=== PATIENT | female | born 1955 | race Caucasian/White ===

== ENCOUNTER 2017-09-06 13:05 | Emergency (ER) | payer OTHER ==
[~2017-09-06] VITALS: Ht 165.1 cm; Wt 85.4 kg
[~2017-09-06 13:05] MED LIST: CLOP1TAB15 PO; CLTP PO; FRC PO; NAPR-1169 PO; PROM25TA PO; SYN88 PO
[2017-09-06 13:07] VITALS: TEMP 36.8; Ht 165.1 cm; Wt 85.4 kg
[2017-09-06 13:15] VITALS: O2SAT 93
[2017-09-06] MEDS ORDERED: KETOROLAC TROMETHAMINE 30 MG/ML VIAL IV STA (13:19)
--- NOTE | 2017-09-06 13:47 | DIAGNOSTIC IMAGING REPORT ---
SINGLE VIEW CHEST CLINICAL HISTORY: Fever. Sepsis. FINDINGS: An AP, portable, upright chest radiograph is compared to study dated 07/12/2015 and correlated with chest CT dated 12/03/2008. The examination is degraded by portable technique and patient rotation. The cardiomediastinal silhouette is unremarkable. There is mild chronic elevation of the right hemidiaphragm. The lungs and pleural spaces are clear. No pneumothorax is seen. The skeletal structures are osteopenic. The bony thorax is grossly intact. IMPRESSION: No active disease in the chest. Electronically signed by: Isai Alcala M.D. 09/06/2017 1:46 PM Dictated Date/Time: 09/06/2017 1:45 PM
[2017-09-06 14:02] LABS: BASO % 0.4 %; BASO ABS # 0.03 K/uL (0-0.2); EOS % 3.3 %; EOS ABS # 0.22 K/uL (0-0.5); HEMOGLOBIN 14.5 g/dL (12.0-16.0); IG# 0.04 K/uL (0.00-0.02); LYMPH % 31.7 %; LYMPH ABS # 2.14 K/uL (1.2-3.4); MEAN CELL VOLUME 93.5 fL (80-100); MEAN CORPUSCULAR HEMOGLOBIN 32.3 pg (25-34); MEAN CORPUSCULAR HGB CONC 34.5 g/dl (32-36); MEAN PLATELET VOLUME 9.7 fL (7.4-10.4); MONO % 6.7 %; MONO ABS # 0.45 K/uL (0.11-0.59); NEUT % 57.3 %; NEUT ABS # 3.88 K/uL (1.4-6.5); PLATELET COUNT 274 K/uL (130-400); RED CELL DISTRIBUTION WIDTH CV 13.8 % (11.5-14.5); RED CELL DISTRIBUTION WIDTH SD 47.2 fL (36.4-46.3); WHITE BLOOD COUNT 6.76 K/uL (4.8-10.8)
[2017-09-06 14:13] LABS: PTT PATIENT 25.6 SECONDS (21.0-31.0)
[2017-09-06 14:18] LABS: ALT/SGPT 32 U/L (12-78); AST/SGOT 15 U/L (15-37); BLOOD UREA NITROGEN 14 mg/dl (7-18); CALCIUM 9.8 mg/dl (8.5-10.1); CARBON DIOXIDE 27 mmol/L (21-32); CREATININE 0.84 mg/dl (0.60-1.20); GLUCOSE 109 mg/dl (70-99); LIPASE 107 U/L (73-393); SODIUM 138 mmol/L (136-145)
[2017-09-06 14:24] LABS: ALKALINE PHOSPHATASE 86 U/L (45-117); CKMB 0.5 ng/ml (0.5-3.6); TOTAL PROTEIN 8.1 gm/dl (6.4-8.2)
[2017-09-06] MEDS ORDERED: GLC/500 PO (14:27)
[2017-09-06] MEDS ORDERED: CHOL1CAP57 PO (14:27)
[2017-09-06] MEDS ORDERED: MONT1TAB3 PO (14:27)
[2017-09-06] MEDS ORDERED: ESCI1TAB10 PO (14:27)
[2017-09-06] MEDS ORDERED: LACT12LO28 TOP (14:27)
[2017-09-06] MEDS ORDERED: CLOP1TAB15 PO (14:27)
[2017-09-06] MEDS ORDERED: DICL-201 PO (14:27)
[2017-09-06] MEDS ORDERED: CALC-354 PO (14:27)
[2017-09-06] MEDS ORDERED: LISI-461 PO (14:27)
[2017-09-06] MEDS ORDERED: CYCL10TA6 PO (14:27)
[2017-09-06] MEDS ORDERED: CETI10TA84 PO (14:27)
[2017-09-06] MEDS ORDERED: LEVE500T13 PO (14:27)
--- NOTE | 2017-09-06 14:32 | EMERGENCY ROOM VISIT NOTE ---
History Report prepared by Zia: Jeff Ernst Under the Supervision of: Dr. Gucci Tran D.O. First contact with patient: 13:10 Chief Complaint: CARDIAC ASSESSMENT Stated Complaint: ABN EKG - STABBING PAIN LEFT SIDE History of Present Illness The patient is a 61 year old female who presents to the Emergency Room with complaints of intermittent pains under her left breast. The patient states that she started experiencing the intermittent "sharp and stabbing" pains last night at 2100, 16 hours ago. She notes that the pain lasts a couple of seconds, and onsets about every 10 minutes. She describes the intensity of the pain as "horrible." When the pain resolves she feels completely normal. The patient notes that the pain has taken her breath away, but it is not precipitated by deep inhalation. The patient visited with per primary care office this morning, and they referred her to the ER for EKG abnormalities. The patient is on Plavix for a possible previous TIA. Source of History: patient Onset: 16 hours ago Position: chest (left) Symptom Intensity: horrible Quality: sharp, stabbing Timing: intermittent Associated Symptoms: + SOB (pain taking her breath away) Review of Systems See HPI for pertinent positives & negatives. A total of 10 systems reviewed and were otherwise negative. Past Medical & Surgical Medical Problems: (1) HTN (hypertension) HTN (hypertension) Patient is pre-diabetic. Hx of hypothyroid. on Keppra for migraines Family History Omitted due to age Social History Smoking Status: Never Smoker Marital Status: Housing Status: lives with significant other Current/Historical Medications Scheduled Calcium Carbonate-Cholecalcife (Caltrate 600+D), 1 TAB PO DAILY Cetirizine (Zyrtec), 10 MG PO DAILY Cholecalciferol (Vitamin D3), 1,000 UNITS PO DAILY Clopidogrel (Plavix), 75 MG PO DAILY Diclofenac (Voltaren), 75 MG PO DAILY Escitalopram Oxalate (Lexapro), 20 MG PO DAILY Lactic Acid (Ammonium Lactate) (Ammonium Lactate), 1 APPLN TOP DAILY Levetiracetam (Keppra), 250 MG PO BID Lisinopril (Zestril), 10 MG PO DAILY Metformin Hcl (Glucophage), 1,000 MG PO DAILY Montelukast Sodium (Singulair), 10 MG PO HS Scheduled PRN Cyclobenzaprine Hcl (Flexeril), 10 MG PO TID PRN for Muscle Spasms Allergies Coded Allergies: Shellfish (Unverified Allergy, Unknown, ., 09/06/17) Sulfa Antibiotics (Unverified Allergy, Unknown, ., 09/06/17) Physical Exam Vital Signs Date Time Temp Pulse Resp B/P (MAP) Pulse Ox O2 Delivery O2 Flow Rate FiO2 09/06/17 13:22 83 09/06/17 13:15 93 Room Air 09/06/17 13:15 93 Room Air 09/06/17 13:07 36.8 89 18 175/90 93 Room Air Physical Exam CONSTITUTIONAL/VITAL SIGNS: Reviewed / noted above. GENERAL: Non-toxic in appearance. INTEGUMENTARY: Warm, dry, and [place]. HEAD: Normocephalic. EYES: without scleral icterus or trauma. ENT/OROPHARYNX: clear and moist. LYMPHADENOPATHY/NECK: Is supple without lymphadenopathy or meningismus. RESPIRATORY: Lungs clear and equal. CARDIOVASCULAR: Regular rate and rhythm. GI/ABDOMEN: Soft and nontender. No organomegaly or pulsatile mass. No rebound or guarding. Normal bowel sounds. EXTREMITIES: Warm and well perfused. BACK: No CVA tenderness. NEUROLOGICAL: Intact without focal deficits. PSYCHIATRIC: normal affect. MUSCULOSKELETAL: Normally developed with good muscle tone. Medical Decision & Procedures ER Provider Diagnostic Interpretation: Radiology results as stated below per my review and radiologist interpretation: SINGLE VIEW CHEST CLINICAL HISTORY: Fever. Sepsis. FINDINGS: An AP, portable, upright chest radiograph is compared to study dated 07/12/2015 and correlated with chest CT dated 12/03/2008. The examination is degraded by portable technique and patient rotation. The cardiomediastinal silhouette is unremarkable. There is mild chronic elevation of the right hemidiaphragm. The lungs and pleural spaces are clear. No pneumothorax is seen. The skeletal structures are osteopenic. The bony thorax is grossly intact. IMPRESSION: No active disease in the chest. Electronically signed by: Isai Alcala M.D. 09/06/2017 1:46 PM Dictated Date/Time: 09/06/2017 1:45 PM Laboratory Results 09/06/17 13:40 Red Blood Count 4.49, Mean Corpuscular Volume 93.5, Mean Corpuscular Hemoglobin 32.3, Mean Corpuscular Hemoglobin Concent 34.5, Mean Platelet Volume 9.7, Neutrophils (%) (Auto) 57.3, Lymphocytes (%) (Auto) 31.7, Monocytes (%) (Auto) 6.7, Eosinophils (%) (Auto) 3.3, Basophils (%) (Auto) 0.4, Neutrophils # (Auto) 3.88, Lymphocytes # (Auto) 2.14, Monocytes # (Auto) 0.45, Eosinophils # (Auto) 0.22, Basophils # (Auto) 0.03 09/06/17 13:40 Test 09/06/17 13:40 White Blood Count 6.76 K/uL (4.8-10.8) Red Blood Count 4.49 M/uL (4.2-5.4) Hemoglobin 14.5 g/dL (12.0-16.0) Hematocrit 42.0 % (37-47) Mean Corpuscular Volume 93.5 fL (80-100) Mean Corpuscular Hemoglobin 32.3 pg (25-34) Mean Corpuscular Hemoglobin Concent 34.5 g/dl (32-36) Platelet Count 274 K/uL (130-400) Mean Platelet Volume 9.7 fL (7.4-10.4) Neutrophils (%) (Auto) 57.3 % Lymphocytes (%) (Auto) 31.7 % Monocytes (%) (Auto) 6.7 % Eosinophils (%) (Auto) 3.3 % Basophils (%) (Auto) 0.4 % Neutrophils # (Auto) 3.88 K/uL (1.4-6.5) Lymphocytes # (Auto) 2.14 K/uL (1.2-3.4) Monocytes # (Auto) 0.45 K/uL (0.11-0.59) Eosinophils # (Auto) 0.22 K/uL (0-0.5) Basophils # (Auto) 0.03 K/uL (0-0.2) RDW Standard Deviation 47.2 fL (36.4-46.3) RDW Coefficient of Variation 13.8 % (11.5-14.5) Immature Granulocyte % (Auto) 0.6 % Immature Granulocyte # (Auto) 0.04 K/uL (0.00-0.02) Prothrombin Time 10.8 SECONDS (9.0-12.0) Prothromb Time International Ratio 1.0 (0.9-1.1) Activated Partial Thromboplast Time 25.6 SECONDS (21.0-31.0) Partial Thromboplastin Ratio 1.0 D-Dimer 190 ug/L FEU (0-500) Anion Gap 8.0 mmol/L (3-11) Est Creatinine Clear Calc Drug Dose 74.0 ml/min Estimated GFR () 85.7 Estimated GFR (Non- 74.0 BUN/Creatinine Ratio 16.9 (10-20) Calcium Level 9.8 mg/dl (8.5-10.1) Total Bilirubin 0.6 mg/dl (0.2-1) Direct Bilirubin 0.1 mg/dl (0-0.2) Aspartate Amino Transf (AST/SGOT) 15 U/L (15-37) Alanine Aminotransferase (ALT/SGPT) 32 U/L (12-78) Alkaline Phosphatase 86 U/L (45-117) Total Creatine Kinase 49 U/L (26-192) Creatine Kinase MB 0.5 ng/ml (0.5-3.6) Creatine Kinase MB Ratio 1.0 (0-3.0) Troponin I < 0.015 ng/ml (0-0.045) Total Protein 8.1 gm/dl (6.4-8.2) Albumin 4.0 gm/dl (3.4-5.0) Lipase 107 U/L (73-393) Laboratory results as stated above per my review. Medications Administered Medications (Trade) Dose Ordered Sig/Nicole Route Start Time Stop Time Status Last Admin Dose Admin Ketorolac Tromethamine (Toradol Inj) 30 mg NOW STAT IV 09/06/17 13:19 09/06/17 13:23 DC 09/06/17 13:42 30 MG ECG Per My Interpretation Indication: chest pain Rate (beats per minute): 81 Rhythm: normal sinus Findings: other (No MARYSOL, No PVCs) ED Course 1312: Previous medical records were reviewed. The patient was evaluated in room B2. A complete history and physical examination was performed. 1319: Ordered Toradol 30 mg IV. 1432:: On reevaluation, the patient is resting in bed. I discussed the results and findings with the patient. She verbalized agreement of the treatment plan. The patient was discharged home. Medical Decision the differential was considered includes acute myocardial infarction, acute coronary syndrome, myocarditis, pericarditis, pericardial effusions/tamponade, esophageal perforation, thoracic aortic dissection, pulmonary embolism, pneumonia, pneumothorax, pancreatitis, shingles, acute cholecystitis, perforated abdominal viscus. This is a 61-year-old female who presents to the ED with a chief complaint of left-sided intermittent sharp chest pain. Pain started last night. She reports that it started around 9 or 10 PM. It is an intermittent stabbing pain that comes and goes. It lasts for only a few seconds and then goes away completely. She states that it occurs about every 10 minutes or so. Nothing seems to wake it worse including deep breathing or movement. The patient has no other specific complaints. She denies any shortness of breath. She has not had recent illness or fevers. Her physical exam was unremarkable. The pain is not reproducible. It does occur randomly during my evaluation. It occurred twice when I was in the room. Her initial blood pressure was elevated. An EKG shows a normal sinus rhythm at a rate of 80. There is nonspecific changes. CBC is normal, d-dimer was negative, lipase was negative and a chest x-ray did not show acute process. Chemistries and troponin were negative. The patient was told the results of the test. She is felt to be stable for discharge. She was treated with IV Toradol for her discomfort. This did not seem to help her much. She took some Advil last night which also did not help. She was given a prescription for Percocet to help with her symptoms until her result. She will watch for a rash in case this is early shingles. She was advised to follow-up with her family doctor later this week for recheck. [place] Drug Monitoring Program Search Results: no issues identified Medication Reconcilliation Current Medication List: was personally reviewed by me Blood Pressure Screening Patient's blood pressure: Elevated blood pressure Impression Primary Impression: Intermittent left-sided chest pain Scribe Attestation The scribe's documentation has been prepared under my direction and personally reviewed by me in its entirety. I confirm that the note above accurately reflects all work, treatment, procedures, and medical decision making performed by me. Departure Information Dispostion Home / Self-Care Prescriptions Oxycodone/Acetaminophen 5MG/325MG (PERCOCET 5MG/325MG) Tab 1 TAB PO Q6H Y for Pain, #20 TAB Prov: Gucci Tran D.O. 09/06/17 Referrals Usman Chan DO (PCP) Patient Instructions My [facility] Additional Instructions Follow-up with your doctor for further care and evaluation in 3-4days. Return to the emergency department for worsening or new symptoms or any concerns. You have been examined and treated today on an emergency basis only. This is not a substitute for, or an effort to provide, complete comprehensive medical care. It is impossible to recognize and treat all injuries or illnesses in a single emergency department visit. It is therefore important that you follow up closely with your doctor. Call as soon as possible for an appointment. Percocet as prescribed. No driving within 6 hours of use. Do not take additional Tylenol while taking Percocet.
[2017-09-06] MEDS ORDERED: OXYC-57 PO (14:44)
[2017-09-06 14:59] VITALS: BP 147/85; PULSE 67; O2SAT 98
[2017-09-06] MEDS ORDERED: PERCOCET HOME PACK PO ONE (15:30)
== END 2017-09-06 15:49 | disposition home or self-care (01) ==
LOC: C.EDB 13:06
DX: R07.9 Chest pain, unspecified (principal); Z79.01 Long term (current) use of anticoagulants; I10 Essential (primary) hypertension; R73.03 Prediabetes; E03.9 Hypothyroidism, unspecified; Z79.84 Long term (current) use of oral hypoglycemic drugs; Z79.899 Other long term (current) drug therapy; Z88.2 Allergy status to sulfonamides; Z91.013 Allergy to seafood

== ENCOUNTER → 2017-12-15 | Outpatient (CLI) | payer OTHER ==
[~2017-12-15] VITALS: Ht 165.1 cm; Wt 84.1 kg
[~2017-12-15] MED LIST changes: +CALC-354 PO; +CETI10TA84 PO; +CHOL1CAP57 PO; -CLTP PO; +CYCL10TA6 PO; +DICL-201 PO; +ESCI1TAB10 PO; -FRC PO; +GLC/500 PO; +LACT12LO28 TOP; +LEVE500T13 PO; +LISI-461 PO; +MONT1TAB3 PO; -NAPR-1169 PO; +OXYC-57 PO; -PROM25TA PO; -SYN88 PO
[2017-12-15 16:06] VITALS: Ht 165.1 cm; Wt 84.1 kg
== END | disposition home or self-care (01) ==
LOC: C.NRED 15:36
PROVIDERS: ATTEND Family Medicine
DX: E11.9 Type 2 diabetes mellitus without complications (principal)

== ENCOUNTER 2024-04-19 15:38 | Inpatient (IN) ==
[2024-04-19 16:45] LABS: Basophils # (auto) 0.04 K/uL (0.00-0.20); Basophils % (auto) 0.4 %; Eosinophils # (auto) 0.24 K/uL (0.00-0.50); Eosinophils % (auto) 2.3 %; Immature Granulocytes # (auto) 0.03 K/uL (0.01-0.20); Immature Granulocytes % (auto) 0.3 %; Lymphocytes # (auto) 1.96 K/uL (1.20-3.40); Lymphocytes % (auto) 18.9 %; Mean Corpuscular Hemoglobin 32.2 pg (25.0-34.0); Mean Corpuscular Hgb Conc 34.2 g/dL (32.0-36.0); Mean Corpuscular Volume 94.1 fL (80.0-100.0); Mean Platelet Volume 9.6 fL (9.4-12.4); Monocytes % (auto) 9.6 %; Neutrophils # (auto) 7.12 K/uL (1.40-6.50); Neutrophils % (auto) 68.5 %; Platelet Count 298 K/uL (130-400); RDW Coefficient of Variation 13.2 % (11.5-14.5); RDW Standard Deviation 45.2 fL (36.4-46.3); Red Blood Count 4.04 M/uL (4.20-5.40); White Blood Count 10.39 K/ul (4.8-10.8)
[2024-04-19 16:46] LABS: Appearance Urine Cloudy (Clear); Bacteria Urine Automated 4+ (None Seen); Bilirubin Urine Negative (Negative); Blood Urine 2+ (Negative); Color Urine Yellow; Epithelial Cell Urine Auto 0-2 /hpf (0-2); Glucose Urine UA Negative (Negative); Ketones Urine 1+ (Negative); Leukocyte Esterase Urine 3+ (Negative); Nitrite Urine Positive (Negative); Protein Urine 1+ (Negative); Specific Gravity Urine 1.012 (1.000-1.030); Urobilinogen Urine Negative (Negative); WBC Urine Automated >50 /hpf (0-5); pH Urine 5.5 (4.5-7.5)
[2024-04-19 17:00] LABS: Albumin Globulin Ratio 1.4 (0.9-2); Albumin Level 4.2 gm/dl (3.4-5.0); BUN Creatinine Ratio 17.4 (10-20); Calcium 9.6 mg/dl (8.6-10.3); Creatinine Clr Calc Pharmacy 65.3 ml/min; Potassium 3.6 mmol/L (3.5-5.1); Total Protein 7.2 gm/dl (6.0-8.3)
--- NOTE | 2024-04-19 17:21 | CT Scan Report ---
EXAM: CT Abdomen and Pelvis Without Intravenous Contrast INDICATION: Renal mass. Obstructing kidney stone. TECHNIQUE: Axial computed tomography images of the abdomen and pelvis without intravenous contrast. Sagittal and coronal reformatted images were created and reviewed. This CT exam was performed using one or more of the following dose reduction techniques: automated exposure control, adjustment of the mA and/or kV according to patient size, and/or use of iterative reconstruction technique. COMPARISON: No relevant prior studies available. FINDINGS: Limitations: None. Lung bases: No abnormality noted. Pleural space: No visualized pleural effusion or pneumothorax. Heart: No abnormality noted. Mediastinum: Small sliding hiatal hernia noted. ABDOMEN: Liver: Lack of intravenous contrast limits detection of some masses. No abnormality noted. Gallbladder and bile ducts: Mild sludge in the gallbladder. No calcified stones. No ductal dilatation. Pancreas: No pancreatic mass, calcification, inflammation or ductal dilation noted. Spleen: No significant abnormality noted. Adrenals: No significant abnormality noted. Kidneys and ureters: There is a heterogeneous mass occupying the lower pole of the left kidney measuring 5.0 x 5.3 x 5.2 cm. There is either a second mass or a contiguous component in the left renal pelvis measuring 2.6 x 3.6 x 2.4 cm. There is mild right hydronephrosis and dilatation of the proximal ureter to a 7 x 11 mm stone just distal to the right UPJ. There are 1 or 2 punctate stones within the right kidney. There are 2 stones within the left kidney the larger measuring approximately 6 mm. No urinary gas. Stomach and bowel: Colonic diverticulosis without diverticulitis. No intestinal thickening or obstruction. PELVIS: Appendix: No findings to suggest acute appendicitis. Bladder: Appears normal for the degree of filling. No stones or inflammation. No large mass. Masses may not be detected in the absence of opacification. Reproductive: No abnormalities noted. ABDOMEN and PELVIS: Intraperitoneal space: No free air. No significant fluid collection. Bones/joints: Mild facet arthrosis and lumbar spondylosis. No acute osseous abnormality. Soft tissues: There are small bilateral fat containing inguinal hernias. Vasculature: Atherosclerotic calcification of the aorta and branches. No aneurysm. Lymph nodes: No pathologically enlarged lymph nodes. IMPRESSION: 1. 7 x 11 mm stone just distal to the right UPJ with mild hydronephrosis. 2. 1 and possibly 2 masses in the left kidney consistent with renal cell carcinoma. 3. Bilateral nonobstructing intrarenal stones. 4. Biliary sludge. ACT 112: Negative or not required by law. Electronically signed by Tara Yusuf 04-19-2024 5:21 PM
[2024-04-19] MEDS: ONDANSETRON INJ 2 MG/ML 2 ML VIAL IV STA (17:50)
[2024-04-19] MEDS: MoRPHine SULFATE 4 MG/ML 1 ML CARP\\VIAL IV STA ×2 (17:50→19:39)
--- NOTE | 2024-04-19 18:48 | Emergency Department Note ---
ED Provider Note History of Present Illness Chief Complaint: Kidney Stone Stated Complaint: KIDNEY STONE Time Seen by Provider: 04/19/24 16:06 Source: patient Mode of arrival: ambulatory Limitations: no limitations Patient is a 68-year-old female who presents to the emergency department with complaints of right sided flank pain. Patient states that this pain has been intermittently bothering her over the past 2 to 3 weeks. Patient notes that the pain starts in her right lower back flank area and wraps around into the her right lower abdomen. Patient denies any history of kidney stones. Patient notes that she has had some urinary frequency but denies any other urinary burning or urinary symptoms at this time. Patient denies any trauma or known cause of her discomfort. Patient also notes intermittent associated nausea. Home Medications Medication Instructions Recorded Confirmed Type clopidogrel 75 mg tablet 75 mg PO QAM 03/12/19 04/27/24 History cholecalciferol (vitamin D3) 125 5,000 unit PO QAM 09/17/22 04/27/24 History mcg (5,000 unit) capsule OneTouch Verio test strips (blood #400 ea 11/02/22 04/26/24 Rx sugar diagnostic) lancets 33 gauge (OneTouch Delica 11/19/22 04/26/24 History Lancets) mecobalamin (vitamin B12) 1,000 1,000 mcg PO DAILY 11/19/22 04/27/24 History mcg chewable tablet levothyroxine 112 mcg tablet 112 mcg PO 5XWK #60 tabs 08/17/23 04/27/24 Rx (Synthroid) pen needle, diabetic 33 gauge x #100 ea 08/17/23 04/26/24 Rx 1/4" rosuvastatin 10 mg tablet 10 mg PO HS 10/07/23 04/27/24 History Dexcom G7 Sensor (blood-glucose #3 ea 03/13/24 04/26/24 Rx sensor) calcium 600 mg (as 1 tab PO DAILY 04/19/24 04/27/24 History carbonate)-vitamin D3 10 mcg (400 unit) tablet (Calcium 600 + D(3)) coenzyme Q10 200 mg capsule (Co 200 mg PO HS 04/19/24 04/27/24 History Q-10) cyclobenzaprine 10 mg tablet 10 mg PO HS PRN Muscle Spasm 04/19/24 04/27/24 History insulin glargine 100 unit/mL (3 18 unit subcut HS 04/19/24 04/27/24 History mL) subcutaneous pen (Lantus Solostar U-100 Insulin) metformin 500 mg tablet,extended 1,000 mg PO BID 04/19/24 04/27/24 History release 24 hr turmeric 400 mg capsule 400 mg PO QDL 04/19/24 04/27/24 History escitalopram oxalate 10 mg tablet 10 mg PO HS 04/27/24 04/27/24 History lisinopril 20 mg tablet 20 mg PO QAM 04/27/24 04/27/24 History Allergies Allergy/AdvReac Type Severity Reaction Status Date / Time shellfish derived Allergy Severe ANAPHYLAXIS Verified 04/27/24 08:39 (SEAFOOD) melon Allergy Mild Chills Verified 04/27/24 08:39 valdecoxib [From Bextra] Allergy Mild rash Verified 04/27/24 08:39 celecoxib [From Celebrex] Allergy Unknown Unknown Verified 04/27/24 08:39 Sulfa (Sulfonamide Allergy Unknown Unknown Verified 04/27/24 08:39 Antibiotics) nitrofurantoin AdvReac Unknown Unknown Verified 04/27/24 08:39 [From Macrodantin] Past Med/Surg History Problem List Encounter for pre-operative examination NSAID sensitivity Left renal mass Hydronephrosis of right kidney Acute UTI (urinary tract infection) (Acute) Rotator cuff tear, right Overweight (BMI 25.0-29.9) Diabetes type 2, controlled (Chronic) Nocturnal hypoxemia Complex sleep apnea syndrome Moderate obstructive sleep apnea (Chronic) Hypercholesteremia (Chronic) Hypothyroidism (Chronic) HTN (hypertension) (Chronic) Medical History Left renal mass Diabetes type 2, controlled History of postoperative nausea and vomiting Hx of migraines History of TIAs (2009) reason for plavix, saw neuro at [facility] - had eeg - no issues - neuro felt pt. was having migraines that were mimicking tia's - continues on plavix but no longer sees neuro- no issues/deficits and no longer gets migraines Hx: UTI (urinary tract infection) (04/2024) abx completed on 04/26/24, had repeat ua, has not heard results Hypothyroidism Hypercholesteremia Hydronephrosis of right kidney Rotator cuff tear right side, no current pain Complex sleep apnea syndrome cpap Hx of colonic polyp HTN (hypertension) Kidney stones Surgical History Hx of laparoscopy (1988) "infertility surgery" - took endometrial tissue out Hx of right knee surgery (2007) right meniscus repair Hx of colonoscopy with polypectomy S/P cystoscopy with ureteral stent placement History of endometrial ablation History of tonsillectomy and adenoidectomy History of foot surgery right foot History of bladder surgery sling Family History Mother Colonic polyp Fatty liver Hypertension Hypothyroidism Diabetes Hemochromatosis Father Diabetes Colon cancer Myocardial infarction Brother Diabetes Sister Hemochromatosis Family/Other Obstructive sleep apnea Social History Smoking Status: Never smoker Second Hand Exposure: No; Do You Dip or Chew Tobacco: No; Hx Alcohol Use: Yes Hx Substance Use: No Preferred Language: Italian Communication Ability: Effective Glove Boarder Required: No Beliefs That Will Affect Care: None marital status: Current Living Situation: Spouse current occupational status: retired Feels Safe at Home: Yes Assistive Devices: Contacts and CPAP Physical Exam Vital Signs Vital Signs - 24 hr 04/19/24 15:53 04/19/24 17:38 04/19/24 17:59 Temperature 36.9 C Temperature Source Oral Pulse Rate 97 H 96 H Pulse Rate [Apical] 98 H Respiratory Rate 18 22 Respiratory Effort / Characteristics Non-Labored Spontaneous Non-Labored Spontaneous Respiratory Depth Normal Normal Blood Pressure 154/63 H Blood Pressure [Right Arm] 180/91 H Blood Pressure Mean 93 Blood Pressure Mean [Right Arm] 120 Blood Pressure Position Sitting Pulse Oximetry 98 96 Oxygen Delivery Method Room Air Room Air Sepsis Recent Fever Within 48 Hours No Sepsis New/Unexplained Change in Mental Status No Sepsis Action Taken by Nursing No Action Required 04/19/24 19:00 04/19/24 21:00 Temperature Temperature Source Pulse Rate Pulse Rate [Apical] 102 H 98 H Respiratory Rate 24 19 Respiratory Effort / Characteristics Non-Labored Spontaneous Respiratory Depth Normal Blood Pressure Blood Pressure [Right Arm] 176/82 H 158/68 H Blood Pressure Mean Blood Pressure Mean [Right Arm] 113 98 Blood Pressure Position Pulse Oximetry 94 92 Oxygen Delivery Method Room Air Room Air Sepsis Recent Fever Within 48 Hours Sepsis New/Unexplained Change in Mental Status Sepsis Action Taken by Nursing VITAL SIGNS - Vital signs and nursing notes were reviewed. GENERAL -68-year-old female appearing her stated age who is in no acute distress. Communicates well with provider and answers questions appropriately. HEAD - NC/AT. EYES - PERRL with EOMI bilaterally. Conjunctiva pink and moist with no injection noted. LUNGS - Chest wall symmetric without accessory muscle use, intercostals retractions, or central cyanosis. Breath sounds clear throughout all daniels. No wheezes, rales, or rhonchi appreciated. CARDIAC - RRR with S1/S2. No murmur, rubs, or gallops appreciated. ABDOMEN - Abdominal contour without pulsations or visible masses. Negative Berkeley's or Jackson Mcadams's Signs. BS normoactive all four quadrants. Mildly increased tenderness to palpation appreciated in the right flank and right lower abdomen. No palpable masses, hepatosplenomegaly, or ascites noted. NEUROLOGIC - Sensory intact to light touch throughout. PSYCH - A&Ox3 and cooperates fully with examiner. Pt is very pleasant and interacts well with examiner. Course Administered Medications Discontinued Medications Cyanocobalamin (Cyanocobalamin 1000 Mcg/Ml Vial) 1,000 mcg IM QAM [facility] Stop: 04/21/24 09:01 Last Admin: 04/21/24 08:49 Dose: 1,000 mcg Documented By: Admin: 04/20/24 16:33 Dose: 1,000 mcg Documented By: AJKrys Diatrizoate Meglumine (Diatrizoate Meglumine 30% 100ml Vial) 100 ml INSTIL UD PRN PRN Reason: Radiology Use Stop: 04/24/24 12:17 Last Admin: 04/20/24 12:20 Dose: 7 ml Documented By: [id number] Enoxaparin Sodium (Enoxaparin Inj 40 Mg/0.4 Ml Syr) 40 mg SQ HS FROILAN Stop: 05/20/24 20:59 Last Admin: 04/21/24 20:15 Dose: 40 mg Documented By: [email or web address] Admin: 04/20/24 20:40 Dose: 40 mg Documented By: JEANINE Gadobutrol (Gadobutrol 65ml Vial) 7 ml IV ONCE ONE Stop: 04/21/24 01:01 Last Admin: 04/21/24 01:01 Dose: 7 ml Documented By: BRADEN Hydromorphone HCl (Hydromorphone Inj 0.5 Mg/0.5 Ml Syr) 0.25 mg IV Q3H PRN PRN Reason: Moderate Pain (Scale 4, 5, 6) Stop: 05/03/24 20:21 Last Admin: 04/19/24 21:37 Dose: 0.25 mg Documented By: RAFAEL Hydromorphone HCl (Hydromorphone Inj 0.5 Mg/0.5 Ml Syr) 0.5 mg IV Q3H PRN PRN Reason: Severe Pain (Scale 7, 8, 9,10) Stop: 05/03/24 20:21 Last Admin: 04/20/24 22:23 Dose: 0.5 mg Documented By: Admin: 04/20/24 17:06 Dose: 0.5 mg Documented By: Admin: 04/20/24 09:36 Dose: 0.5 mg Documented By: Admin: 04/20/24 06:29 Dose: 0.5 mg Documented By: JEANINE Ceftriaxone Sodium (Rocephin) 1,000 mg in 50 mls @ 100 mls/hr IV NOW STA Stop: 04/19/24 19:35 Last Infusion: 04/19/24 20:15 Dose: Infused Documented By: Admin: 04/19/24 19:23 Dose: 100 mls/hr Documented By: RAFAEL Sodium Chloride (Nss) 500 mls @ 999 mls/hr IV .Q31M ONE Stop: 04/19/24 19:36 Last Infusion: 04/19/24 20:16 Dose: Infused Documented By: Admin: 04/19/24 19:23 Dose: 999 mls/hr Documented By: RAFAEL Acetaminophen (Ofirmev) 1,000 mg in 100 mls @ 400 mls/hr IV Q8H PRN PRN Reason: Pain or Fever Stop: 04/22/24 20:21 Last Infusion: 04/20/24 13:32 Dose: Infused Documented By: Admin: 04/20/24 13:17 Dose: 400 mls/hr Documented By: Infusion: 04/19/24 23:57 Dose: Infused Documented By: Admin: 04/19/24 23:18 Dose: 400 mls/hr Documented By: JEANINE Sodium Chloride (Nss) 1,000 mls @ 100 mls/hr IV .Q10H FROILAN Stop: 04/20/24 06:29 Last Infusion: 04/20/24 09:33 Dose: Infused Documented By: Admin: 04/19/24 20:38 Dose: 100 mls/hr Documented By: RAFAEL Pantoprazole Sodium (Protonix) 40 mg in 10 mls @ 5 mls/min IV NOW ONE Stop: 04/19/24 20:23 Last Admin: 04/19/24 20:40 Dose: 5 mls/min Documented By: RAFAEL Parenteral Electrolytes (Plasma-Lyte A Ph 7.4) 1,000 mls @ 80 mls/hr IV .[id number] FROILAN Stop: 04/20/24 19:00 Last Infusion: 04/20/24 22:18 Dose: Infused Documented By: Admin: 04/20/24 09:33 Dose: 80 mls/hr Documented By: JONELLE Ceftriaxone Sodium (Rocephin) 1,000 mg in 50 mls @ 100 mls/hr IV NOW [facility] Stop: 04/20/24 16:17 Last Infusion: 04/20/24 17:03 Dose: Infused Documented By: Admin: 04/20/24 16:33 Dose: 100 mls/hr Documented By: JONELLE Ceftriaxone Sodium (Rocephin) 1,000 mg in 50 mls @ 100 mls/hr IV QAM [facility] Stop: 05/01/24 08:59 Last Infusion: 04/22/24 10:21 Dose: Infused Documented By: [id number] Admin: 04/22/24 09:45 Dose: 100 mls/hr Documented By: [id number] Infusion: 04/21/24 09:20 Dose: Infused Documented By: Admin: 04/21/24 08:50 Dose: 100 mls/hr Documented By: KENYA Insulin Aspart (Insulin Aspart Per Unit Charge) 0 units SC Q6 [facility] Stop: 05/20/24 11:59 Last Admin: 04/20/24 13:20 Dose: Not Given Documented By: JONELLE Insulin Aspart (Insulin Aspart Per Unit Charge) 0 units SC ACHS [facility] Stop: 05/20/24 16:29 Last Admin: 04/22/24 13:23 Dose: 2 units Documented By: [id number] Co-signed By: BAYRON Admin: 04/22/24 09:44 Dose: 4 units Documented By: [id number] Co-signed By: BAYRON Admin: 04/21/24 21:26 Dose: 1 units Documented By: SARAH Co-signed By: UMER Admin: 04/21/24 17:30 Dose: 6 units Documented By: JONELLE Co-signed By: ROQUE Admin: 04/21/24 13:13 Dose: 3 units Documented By: JONELLE Co-signed By: MANDA Admin: 04/21/24 09:00 Dose: 2 units Documented By: KENYA Co-signed By: INEZ Admin: 04/20/24 20:41 Dose: 3 units Documented By: JEANINE Co-signed By: [id number] Admin: 04/20/24 17:35 Dose: 5 units Documented By: JONELLE Co-signed By: LEEANNA Insulin Glargine (Lantus Per Unit Charge) [address] [facility]; Protocol Stop: 05/20/24 20:59 Last Admin: 04/21/24 21:26 Dose: 8 units Documented By: SARAH Co-signed By: UMER Admin: 04/20/24 20:41 Dose: 12 units Documented By: JEANINE Co-signed By: [id number] Levothyroxine Sodium (Levothyroxine Sodium 112 Mcg Tablet) 112 mcg PO [id number]@0500 [facility] Stop: 05/20/24 08:44 Last Admin: 04/21/24 06:14 Dose: 112 mcg Documented By: Admin: 04/20/24 09:33 Dose: 112 mcg Documented By: JONELLE Lorazepam (Lorazepam 1 Mg Tab) 1 mg PO ONCE PRN PRN Reason: mri Stop: 05/20/24 09:52 Last Admin: 04/20/24 23:45 Dose: 1 mg Documented By: JEANINE Magnesium Oxide (Magnesium Oxide 400 Mg Tab) 400 mg PO BID FROILAN Stop: 05/21/24 15:29 Last Admin: 04/22/24 09:45 Dose: 400 mg Documented By: [id number] Admin: 04/21/24 20:14 Dose: 400 mg Documented By: Admin: 04/21/24 16:25 Dose: 400 mg Documented By: JONELLE Melatonin (Melatonin 3 Mg Tab) 6 mg PO NOW STA Stop: 04/21/24 20:21 Last Admin: 04/21/24 21:32 Dose: 6 mg Documented By: SARAH Morphine Sulfate (Morphine Sulfate 4 Mg/Ml 1 Ml Carp\\Vial) 4 mg IV NOW STA Stop: 04/19/24 17:45 Last Admin: 04/19/24 17:50 Dose: 4 mg Documented By: RAFAEL Morphine Sulfate (Morphine Sulfate 4 Mg/Ml 1 Ml Carp\\Vial) 4 mg IV NOW STA Stop: 04/19/24 19:36 Last Admin: 04/19/24 19:39 Dose: 4 mg Documented By: RAFAEL Ondansetron HCl (Ondansetron Inj 2 Mg/Ml 2 Ml Vial) 4 mg IV NOW STA Stop: 04/19/24 17:45 Last Admin: 04/19/24 17:50 Dose: 4 mg Documented By: RAFAEL Polyethylene Glycol (Polyethylene (Miralax) 17 Gm Pack) 17 gm PO DAILY FROILAN Stop: 05/21/24 15:29 Last Admin: 04/22/24 09:44 Dose: 17 gm Documented By: [id number] Admin: 04/21/24 16:25 Dose: Not Given Documented By: JONELLE Potassium Chloride (Potassium Chloride Crtab 20 Meq Tabcr) 20 meq PO NOW STA Stop: 04/21/24 15:19 Last Admin: 04/21/24 16:27 Dose: 20 meq Documented By: JONELLE Sennosides (Senna 8.6 Mg Tab) 17.2 mg PO HS FROILAN Stop: 05/21/24 20:59 Last Admin: 04/21/24 20:14 Dose: 17.2 mg Documented By: SARAH Sennosides (Senna 8.6 Mg Tab) 17.2 mg PO ONCE ONE Stop: 04/21/24 15:17 Last Admin: 04/21/24 15:40 Dose: 17.2 mg Documented By: JONELLE Medical Decision Making Differential Diagnosis Differential diagnosis includes renal calculus, pyelonephritis, musculoskeletal pain, trauma, herpes zoster, malignancy, among others. Medical Records Attestation: I reviewed the patient's medical records. Home Medications was personally reviewed by me Laboratory Data Attestation: I reviewed the patient's lab results. 04/22/24 05:34 04/22/24 05:34 Lab Results 12/11/24 12/11/24 Range/Units 16:17 16:19 WBC 10.39 (4.8-10.8) K/ul RBC 4.04 L (4.20-5.40) M/uL Hgb 13.0 (12.0-16.0) g/dl Hct 38.0 (37.0-47.0) % MCV 94.1 (80.0-100.0) fL MCH 32.2 (25.0-34.0) pg MCHC 34.2 (32.0-36.0) g/dL RDW Std Deviation 45.2 (36.4-46.3) fL RDW Coeff of Richard 13.2 (11.5-14.5) % Plt Count 298 (130-400) K/uL MPV 9.6 (9.4-12.4) fL Immature Gran % (Auto) 0.3 % Neut % (Auto) 68.5 % Lymph % (Auto) 18.9 % [place] % (Auto) 9.6 % Eos % (Auto) 2.3 % Baso % (Auto) 0.4 % Neut # (Auto) 7.12 H (1.40-6.50) K/uL Lymph # (Auto) 1.96 (1.20-3.40) K/uL [place] # (Auto) 1.00 H (0.11-0.59) K/uL Eos # (Auto) 0.24 (0.00-0.50) K/uL Baso # (Auto) 0.04 (0.00-0.20) K/uL Immature Gran # (Auto) 0.03 (0.01-0.20) K/uL Sodium 138 (136-145) mmol/L Potassium 3.6 (3.5-5.1) mmol/L Chloride 101 (98-107) mmol/L Carbon Dioxide 29 (21-32) mmol/L Anion Gap 8 (3-11) BUN 12 (6-23) mg/dl Creatinine 0.69 (0.6-1.2) mg/dl Est Cr Clr Drug Dosing 65.3 ml/min eGFR 93.30 BUN/Creatinine Ratio 17.4 (10-20) Glucose 94 (70-99(Fasting)) mg/dl Calcium 9.6 (8.6-10.3) mg/dl Total Bilirubin 1.0 (0.2-1.0) mg/dl AST 10 L (13-39) U/L ALT 7 (7-52) U/L Alkaline Phosphatase 52 (34-104) U/L Total Protein 7.2 (6.0-8.3) gm/dl Albumin 4.2 (3.4-5.0) gm/dl Globulin 3.0 (2.5-4.0) gm/dl Albumin/Globulin Ratio 1.4 (0.9-2) Lipase 14 (11-82) U/L Urine Color Yellow Urine Appearance Cloudy A (Clear) Urine pH 5.5 (4.5-7.5) Ur Specific [place] 1.012 (1.000-1.030) Urine Protein 1+ H (Negative) Urine Glucose (UA) Negative (Negative) Urine Ketones 1+ H (Negative) Urine Blood 2+ H (Negative) Urine Nitrite Positive A (Negative) Urine Bilirubin Negative (Negative) Urine Urobilinogen Negative (Negative) Ur Leukocyte Esterase 3+ H (Negative) Urine WBC (Auto) >50 H (0-5) /hpf Urine RBC (Auto) 6-10 H (0-2) /hpf U Hyaline Cast (Auto) 3-5 H (0-2) /lpf U Epithel Cells (Auto) 0-2 (0-2) /hpf Urine Bacteria (Auto) 4+ H (None Seen) Imaging Data Radiologist's Impression: Abdomen/Pelvis CT 04/19/24 16:07 EXAM: CT Abdomen and Pelvis Without Intravenous Contrast INDICATION: Renal mass. Obstructing kidney stone. TECHNIQUE: Axial computed tomography images of the abdomen and pelvis without intravenous contrast. Sagittal and coronal reformatted images were created and reviewed. This CT exam was performed using one or more of the following dose reduction techniques: automated exposure control, adjustment of the mA and/or kV according to patient size, and/or use of iterative reconstruction technique. COMPARISON: No relevant prior studies available. FINDINGS: Limitations: None. Lung bases: No abnormality noted. Pleural space: No visualized pleural effusion or pneumothorax. Heart: No abnormality noted. Mediastinum: Small sliding hiatal hernia noted. ABDOMEN: Liver: Lack of intravenous contrast limits detection of some masses. No abnormality noted. Gallbladder and bile ducts: Mild sludge in the gallbladder. No calcified stones. No ductal dilatation. Pancreas: No pancreatic mass, calcification, inflammation or ductal dilation noted. Spleen: No significant abnormality noted. Adrenals: No significant abnormality noted. Kidneys and ureters: There is a heterogeneous mass occupying the lower pole of the left kidney measuring 5.0 x 5.3 x 5.2 cm. There is either a second mass or a contiguous component in the left renal pelvis measuring 2.6 x 3.6 x 2.4 cm. There is mild right hydronephrosis and dilatation of the proximal ureter to a 7 x 11 mm stone just distal to the right UPJ. There are 1 or 2 punctate stones within the right kidney. There are 2 stones within the left kidney the larger measuring approximately 6 mm. No urinary gas. Stomach and bowel: Colonic diverticulosis without diverticulitis. No intestinal thickening or obstruction. PELVIS: Appendix: No findings to suggest acute appendicitis. Bladder: Appears normal for the degree of filling. No stones or inflammation. No large mass. Masses may not be detected in the absence of opacification. Reproductive: No abnormalities noted. ABDOMEN and PELVIS: Intraperitoneal space: No free air. No significant fluid collection. Bones/joints: Mild facet arthrosis and lumbar spondylosis. No acute osseous abnormality. Soft tissues: There are small bilateral fat containing inguinal hernias. Vasculature: Atherosclerotic calcification of the aorta and branches. No aneurysm. Lymph nodes: No pathologically enlarged lymph nodes. IMPRESSION: 1. 7 x 11 mm stone just distal to the right UPJ with mild hydronephrosis. 2. 1 and possibly 2 masses in the left kidney consistent with renal cell carcinoma. 3. Bilateral nonobstructing intrarenal stones. 4. Biliary sludge. ACT 112: Negative or not required by law. Electronically signed by Tara Yusuf 04-19-2024 5:21 PM MDM Narrative Patient is a 68-year-old female who presents to the emergency department with complaints of right sided flank pain. Patient states that this pain has been intermittently bothering her over the past 2 to 3 weeks. Patient notes that the pain starts in her right lower back flank area and wraps around into the her right lower abdomen. Patient denies any history of kidney stones. Patient notes that she has had some urinary frequency but denies any other urinary burning or urinary symptoms at this time. Patient denies any trauma or known cause of her discomfort. Patient also notes intermittent associated nausea. Patient was evaluated by myself and findings are noted in the physical exam above. Patient was ordered IV placement, lab work, urinalysis, and a CT of the abdomen pelvis. Patient was also ordered morphine and Zofran for her pain and nausea Patient's lab work resulted and was unremarkable. Patient's white blood cell count was normal at 10.47. Patient did not have any indication of anemia or electrolyte imbalance. Patient's urinalysis resulted and was positive for protein ketones blood nitrates and leukocytes. Patient had urine bacteria as well. Patient had a CT of the abdomen pelvis which was interpreted by radiology to show a 7 x 11 mm stone just distal to the right UPJ with mild hydronephrosis. Patient CT read from radiology also noted 1 and possibly 2 masses in the left kidney consistent with renal cell carcinoma. Because of these findings and the patient's presentation I did reach out to Dr. Cormier who is on-call for urology. Dr. Cormier agreed that the patient would benefit from admission to the hospital as an observation and he would see her while she is admitted to the hospital. He also stated that he did not feel that the 1 and possibly 2 masses in the left kidney were likely and instructed me not to discuss that with the patient yet as he would prefer further testing and evaluation to ensure that that was the case. I ordered the patient a dose of IV Rocephin and fluids. Patient was also ordered a second dose of morphine for her pain. I had case management reach out to the [facility] hospitalist group to admit this patient for her kidney stone and resulting UTI. The patient was accepted for admission to the hospital under the [facility] group. Please refer to their documentation for further evaluation and management of this patient. Impression Kidney stones, Hydronephrosis, Acute UTI (urinary tract infection) Discharge Plan Visit Data Chief Complaint: Kidney Stone Stated Complaint: KIDNEY STONE ED Provider: Sky Sheehan ED Midlevel Provider: Zenaida Kinney Discharge Problem: Kidney stones, Hydronephrosis, Acute UTI (urinary tract infection) Patient Disposition: Admitted As Inpatient Discharge Instructions Interventions: ED Discharge Assessment Last Done: 04/19/24 22:20 Discharge Problem: Hydronephrosis Qualifiers: Hydronephrosis type: with ureteropelvic junction obstruction Qualified Code(s): Q62.11 - Congenital occlusion of ureteropelvic junction
[2024-04-19] MEDS: SODIUM CHLORIDE 0.9% 500 ML IV ONE (19:23)
[2024-04-19] MEDS: cefTRIAXone SODIUM 1,000 MG/50 ML BAG IV STA (19:23)
--- NOTE | 2024-04-19 19:51 | Urology Consultation ---
Date of Consultation April 19, 2024 Assessment & Plan (1) Nephrolithiasis: Patient is being admitted on the hospitalist service. From a urologic perspective we recommend the following: Appears of the patient has infected urine. She has been placed on antibiotics in form of Rocephin. Appropriate cultures have been sent. Antibiotic should continue and can be tailored based on culture results She should be hydrated IV fluids Serial labs to be followed Analgesics to be provided Antiemetics to be provided At the present time the patient is nontoxic-appearing. She is normotensive without fever. She does have a slight tachycardia. She does not have leukocytosis or acute kidney injury. Her ultimate plan will likely be to perform a cystoscopy on 04/20/2024. As patient is currently hemodynamically stable emergent procedure is not required at this time. If the patient does decompensate in the middle of the night consideration be given to performing cystoscopy at an earlier time. The patient should be made n.p.o. after midnight tonight in anticipation for likely cystoscopy on 04/20/2024 In addition, due to the noted left-sided renal lesions the hospitalist service is planning on performing three-phase CT scan for further evaluation of this and also obtaining a urine cytology for further evaluation. Additional recommendations will be forthcoming based on her clinical course as unfolds. History of Present Illness Reason for Consultation: Nephrolithiasis History of Present Illness Is a 68-year-old female who states she has been suffering from right flank pain for approximately 1 month. She says that she gets waves of pain in the right flank that radiates to her right abdomen. She notes over the past 2 weeks is gotten progressively worse and specifically over the past 24 hours has become somewhat unbearable. She denies any fevers, shakes, or chills but she has had associated nausea and vomiting. She denies any dysuria urinary frequency but does note a small amount of hematuria. She has never had any kidney stones in the past. The patient does report she has had a history of TIA 18 years ago for which she takes Plavix. She said that when she had this TIA her gait became unsteady and she had weakness of her right hand. She says that she did make a full recovery and has not had any recurrences since that time. Since arrival to the hospital she has had labs and imaging which I independent reviewed. A CT scan of the abdomen pelvis showed the patient had a kidney stone at the right ureteropelvic junction with mild hydronephrosis measuring 7 x 11 mm. There is also concern the patient had 1 or 2 masses in the left kidney concerning for renal cell carcinoma. A CBC revealed white blood cell count, hemoglobin, hematocrit, platelet count were normal. Chemistry profile showed sodium and potassium as well as the BUN and creatinine were normal. Urinalysis was positive for nitrites and also had 3+ leukocyte esterase and pyuria with greater than 50 white blood cells per high-power field. The specimen also had 4+ bacteria. At the time of my interview she was resting comfortably in bed and she was no distress. Allergies Allergy/AdvReac Type Severity Reaction Status Date / Time shellfish derived Allergy Unknown . Verified 03/30/24 13:08 Sulfa (Sulfonamide Allergy Unknown . Verified 03/30/24 13:08 Antibiotics) melon Allergy Unknown Verified 04/19/24 19:22 valdecoxib [From Bextra] Allergy rash Verified 03/30/24 13:08 nitrofurantoin AdvReac Unresponsiv Unverified 04/19/24 19:22 [From Macrodantin] e celebrx Allergy Severe Rash Uncoded 03/30/24 13:08 seafood Allergy Anaphylaxis Uncoded 03/30/24 13:08 Home Medications Medication Instructions Recorded Confirmed Type clopidogrel 75 mg tablet 75 mg PO QAM 03/12/19 04/19/24 History cholecalciferol (vitamin D3) 125 5,000 unit PO QAM 09/17/22 04/19/24 History mcg (5,000 unit) capsule OneTouch Verio test strips (blood #400 ea 11/02/22 03/30/24 Rx sugar diagnostic) coQ10 (ubiquinol) 200 mg capsule 200 mg PO QPM 11/19/22 04/19/24 History lancets 33 gauge (OneTouch Delica 11/19/22 03/30/24 History Lancets) mecobalamin (vitamin B12) 1,000 1,000 mcg PO QDD 11/19/22 04/19/24 History mcg chewable tablet levothyroxine 112 mcg tablet 112 mcg PO 5XWK #60 tabs 08/17/23 04/19/24 Rx (Synthroid) pen needle, diabetic 33 gauge x #100 ea 08/17/23 03/30/24 Rx 1/" rosuvastatin 10 mg tablet 10 mg PO HS 10/07/23 04/19/24 History Dexcom G7 Sensor (blood-glucose #3 ea 03/13/24 03/30/24 Rx sensor) calcium 600 mg (as 1 tab PO QDD 04/19/24 04/19/24 History carbonate)-vitamin D3 10 mcg (400 unit) tablet (Calcium 600 + D(3)) coenzyme Q10 200 mg capsule (Co 200 mg PO HS 04/19/24 04/19/24 History Q-10) cyclobenzaprine 10 mg tablet 10 mg PO HS PRN Muscle Spasm 04/19/24 04/19/24 History insulin glargine 100 unit/mL (3 18 unit subcut HS 04/19/24 04/19/24 History mL) subcutaneous pen (Lantus Solostar U-100 Insulin) lisinopril 20 mg tablet 20 mg PO QAM 04/19/24 04/19/24 History metformin 500 mg tablet,extended 1,000 mg PO BID 04/19/24 04/19/24 History release 24 hr turmeric 400 mg capsule 400 mg PO QDL 04/19/24 04/19/24 History Patient History Medical History Right knee DJD Right knee pain Surgical History History of endometrial ablation History of tonsillectomy and adenoidectomy History of foot surgery History of bladder surgery Family History Mother Colonic polyp Fatty liver Hypertension Hypothyroidism Diabetes Hemochromatosis Father Diabetes Colon cancer Myocardial infarction Brother Diabetes Sister Hemochromatosis Family/Other Obstructive sleep apnea Social History Smoking Status: Never smoker Hx Alcohol Use: Yes (occasional) Preferred Language: Nauruan marital status: Current Living Situation: Spouse current occupational status: retired Feels Safe at Home: Yes Review of Systems Review of Systems: All systems reviewed & are unremarkable except as noted in HPI & below Physical Exam Constitutional: WD/WN, vitals as above Eyes: no conjunctival abnormality Wears glasses ENMT: Ears: no hearing impairment and no external ear abnormality Mouth: no oropharynx abnormality Neck: trachea midline Respiratory: normal respiratory effort; no respiratory distress and no labored breathing Cardiovascular: Rate/Rhythm: regular rate and regular rhythm Vessels: dorsalis pedis pulses present and radial pulses present Gastrointestinal (Abdomen): Abdomen is soft and nondistended. It is nontender to palpation. There is no rebound tenderness or guarding. Musculoskeletal: No calf tenderness. Feet are warm and well-perfused Skin: no rashes Neurologic: moves all extremities Psychiatric: A+Ox3, euthymic affect Genitourinary: No CVA tenderness with percussion on the left. Minimal CVA tenderness with percussion on the right Results & Data Vital Signs (Past 12 Hours) Vital Signs Temp Pulse Pulse Resp BP BP Pulse Ox 04/19/24 19:00 102 H 24 176/82 H 94 04/19/24 17:59 96 H 04/19/24 17:38 98 H 22 180/91 H 96 04/19/24 15:53 36.9 C 97 H 18 154/63 H 98 O2 Del Method 04/19/24 19:00 Room Air 04/19/24 17:59 04/19/24 17:38 Room Air 04/19/24 15:53 Room Air PG Care Time/CCT Total # of Minutes Spent Total Time Spent with Patient: Total time spent is greater than 50% in coordination of care (as documented) at patient's floor/unit and/or counseling patient: Coding Level of Care Code 85277 INT INP/OBS CARE 3/75MIN Diagnoses Nephrolithiasis N20.0
[2024-04-19] MEDS ORDERED: ONDANSETRON INJ 2 MG/ML 2 ML VIAL IV PRN (20:22)
[2024-04-19] MEDS: SODIUM CHLORIDE 0.9% 1,000 ML IV SCH (20:38)
[2024-04-19] MEDS: PANTOprazole 40 MG/10 ML SYR IV ONE (20:40)
[2024-04-19] MEDS: HYDROmorphone INJ 0.5 MG/0.5 ML SYR IV PRN (21:37)
--- NOTE | 2024-04-19 22:35 | History & Physical Report ---
Date of Service April 19, 2024 Assessment & Plan (1) Hydronephrosis of right kidney: (2) Calculus of proximal right ureter: (3) Left renal mass: (4) Diabetes type 2, controlled: (5) NSAID sensitivity: Plan 7 x 11 mm proximal right UPJ stone hydronephrosis- Noted on CT of abdomen and pelvis Follow urine culture and sensitivity N.p.o. after midnight Tylenol 1 g IV every 8 hours as needed for mild pain or fever Dilaudid 0.25 mg IV every 3 hours as needed for moderate pain Dilaudid 0.5 mg IV every 3 hours as needed for severe pain Status post 500 mL bolus normal saline in the ED Place on NSS at 80 mL/h x 1 L Zofran 4 mg IV every 6 hours as needed Pantoprazole 40 mg IV x 1 Ceftriaxone 1 g IV daily Consult urology Left renal mass- Initially noted on CT abdomen pelvis as 1 and possibly 2 masses in the left kidney consistent with renal cell carcinoma Ultrasound retroperitoneal limited, renal shows moderate right-sided hydronephrosis and hydroureter. Complex left renal mass associate with lower pole of the kidney and separate 2.8 x 3.3 cm solid mass associate with the renal pelvis. Dedicated follow-up CT or MRI without and with contrast with renal mass protocol recommended Urine cytology with reflex FISH has been ordered Ordered MRI abdomen with and without contrast attention kidneys. Note CT with dye not ordered due to contrast allergy Consult urology for problems 1 and 2 Diabetes mellitus- Hold metformin Continue glargine 18 units subcu in the evening, starting on 12/12. Present glucose is 94 on admission labs Placed on Accu-Cheks with NovoLog SSI Biliary sludge- Noted on CT scan, normal LFTs monitor for any development of symptoms History of Present Illness Chief Complaint: The patient presents to the emergency department with complaint of right-sided flank pain that began about 4 weeks ago intermittently. She went to see her [facility] in the [facility], where her pain had gradually worsened and she developed urinary frequency, to the point that upon arrival to the airport in [place] she came immediately to the ED for assessment. Primary Care Provider: Usman Chan The patient is a 68-year-old female with a past medical history including right rotator cuff tear, diabetes mellitus type 2, complex sleep apnea syndrome, hypercholesterolemia, hypothyroidism and hypertension. The patient has no previous history of urinary tract infections or kidney stones. CT scan of abdomen pelvis revealed a 7 x 11 mm distal right UPJ stone, and mild right hydronephrosis, UA suggested urinary tract infection, and she was then referred for evaluation for admission. Allergies Allergy/AdvReac Type Severity Reaction Status Date / Time shellfish derived Allergy Unknown . Verified 03/30/24 13:08 Sulfa (Sulfonamide Allergy Unknown . Verified 03/30/24 13:08 Antibiotics) melon Allergy Unknown Verified 04/19/24 19:22 valdecoxib [From Bextra] Allergy rash Verified 03/30/24 13:08 nitrofurantoin AdvReac Unresponsiv Unverified 04/19/24 19:22 [From Macrodantin] e celebrx Allergy Severe Rash Uncoded 03/30/24 13:08 seafood Allergy Anaphylaxis Uncoded 03/30/24 13:08 Home Medications Medication Instructions Recorded Confirmed Type clopidogrel 75 mg tablet 75 mg PO QAM 03/12/19 04/19/24 History cholecalciferol (vitamin D3) 125 5,000 unit PO QAM 09/17/22 04/19/24 History mcg (5,000 unit) capsule OneTouch Verio test strips (blood #400 ea 11/02/22 03/30/24 Rx sugar diagnostic) coQ10 (ubiquinol) 200 mg capsule 200 mg PO QPM 11/19/22 04/19/24 History lancets 33 gauge (OneTouch Delica 11/19/22 03/30/24 History Lancets) mecobalamin (vitamin B12) 1,000 1,000 mcg PO QDD 11/19/22 04/19/24 History mcg chewable tablet levothyroxine 112 mcg tablet 112 mcg PO 5XWK #60 tabs 08/17/23 04/19/24 Rx (Synthroid) pen needle, diabetic 33 gauge x #100 ea 08/17/23 03/30/24 Rx 1/4" rosuvastatin 10 mg tablet 10 mg PO HS 10/07/23 04/19/24 History Dexcom G7 Sensor (blood-glucose #3 ea 03/13/24 03/30/24 Rx sensor) calcium 600 mg (as 1 tab PO QDD 04/19/24 04/19/24 History carbonate)-vitamin D3 10 mcg (400 unit) tablet (Calcium 600 + D(3)) coenzyme Q10 200 mg capsule (Co 200 mg PO HS 04/19/24 04/19/24 History Q-10) cyclobenzaprine 10 mg tablet 10 mg PO HS PRN Muscle Spasm 04/19/24 04/19/24 History insulin glargine 100 unit/mL (3 18 unit subcut HS 04/19/24 04/19/24 History mL) subcutaneous pen (Lantus Solostar U-100 Insulin) lisinopril 20 mg tablet 20 mg PO QAM 04/19/24 04/19/24 History metformin 500 mg tablet,extended 1,000 mg PO BID 04/19/24 04/19/24 History release 24 hr turmeric 400 mg capsule 400 mg PO QDL 04/19/24 04/19/24 History Past Med/Surg History Problem List (Updated 04/20/24 @ 04:05 by Randy Lucas MD) NSAID sensitivity Left renal mass Calculus of proximal right ureter Hydronephrosis of right kidney Acute UTI (urinary tract infection) (Acute) Hydronephrosis (Acute) Kidney stones (Acute) Nephrolithiasis Rotator cuff tear, right Overweight (BMI 25.0-29.9) Diabetes type 2, controlled (Chronic) Nocturnal hypoxemia Complex sleep apnea syndrome Moderate obstructive sleep apnea (Chronic) Hypercholesteremia (Chronic) Hypothyroidism (Chronic) HTN (hypertension) (Chronic) Medical History Right knee DJD Right knee pain Surgical History History of endometrial ablation History of tonsillectomy and adenoidectomy History of foot surgery History of bladder surgery Family History Mother Colonic polyp Fatty liver Hypertension Hypothyroidism Diabetes Hemochromatosis Father Diabetes Colon cancer Myocardial infarction Brother Diabetes Sister Hemochromatosis Family/Other Obstructive sleep apnea Social History Smoking Status: Never smoker Second Hand Exposure: No; Do You Dip or Chew Tobacco: No; Tobacco Cessation Education Requested by Patient: No Hx Alcohol Use: No Hx Substance Use: No Preferred Language: Tajik Communication Ability: Effective Director Building Required: No Beliefs That Will Affect Care: None marital status: Current Living Situation: Spouse current occupational status: retired Other Information That Helps Us Care for You: No Feels Safe at Home: Yes Safety Concerns: Feels Safe At This Time Assistive Devices: CPAP Review of Systems Review of Systems: The patient denies chest pain, palpitations, shortness of breath, dyspnea on exertion, cough, lower extremity swelling, sore throat, fevers, chills, sweats, weight change, vomiting, diarrhea , constipation, blood in urine or stool, lightheadedness, dizziness, headache, memory loss, loss of consciousness, rash, abnormal bruising or bleeding, imbalance, focal or generalized weakness, numbness or tingling in arms or legs, generalized arthralgias or myalgias, neck pain, or night sweats. The review of systems is otherwise negative other than for that already noted above, and at least 10 systems have been reviewed. Physical Exam Physical Exam: The patient is awake, alert and oriented 3, well developed and well nourished, normocephalic and atraumatic, lying in bed and in no acute distress. HEENT--PERRL, EOMI, mucous membranes and oropharynx mildly dry. Neck--supple. No JVD. No bruits. Thyroid normal, trachea midline, no adenopathy. Heart--normal S1 and S2. No murmurs, rubs or gallops. Lungs--clear bilaterally, no respiratory distress, no accessory muscle use. Abdomen--normal bowel sounds and soft. Nontender. Nondistended, no hernias or m asses, no organomegaly. Extremities--no cyanosis or clubbing. No edema. There are good distal pulses b/l. Dermatologic--normal skin turgor, normal color, no abnormal lymph nodes, no rash. Neurologic--cranial nerves II through XII grossly intact. Rheumatologic--normal range of motion. Psychiatric--normal affect. Results & Data Results & Data Vital Signs (Past 12 Hours) Vital Signs Temp Pulse Pulse Resp BP BP Pulse Ox 04/19/24 21:00 98 H 19 158/68 H 92 04/19/24 19:00 102 H 24 176/82 H 94 04/19/24 17:59 96 H 04/19/24 17:38 98 H 22 180/91 H 96 04/19/24 15:53 36.9 C 97 H 18 154/63 H 98 O2 Del Method 04/19/24 21:00 Room Air 04/19/24 19:00 Room Air 04/19/24 17:59 04/19/24 17:38 Room Air 04/19/24 15:53 Room Air Laboratory Results Laboratory Results WBC 10.39 K/ul (4.8-10.8) 04/19/24 16:19 RBC 4.04 M/uL (4.20-5.40) L 04/19/24 16:19 Hgb 13.0 g/dl (12.0-16.0) 04/19/24 16:19 Hct 38.0 % (37.0-47.0) 04/19/24 16:19 MCV 94.1 fL (80.0-100.0) 04/19/24 16:19 MCH 32.2 pg (25.0-34.0) 04/19/24 16:19 MCHC 34.2 g/dL (32.0-36.0) 04/19/24 16:19 RDW Std Deviation 45.2 fL (36.4-46.3) 04/19/24 16:19 RDW Coeff of Richard 13.2 % (11.5-14.5) 04/19/24 16:19 Plt Count 298 K/uL (130-400) 04/19/24 16:19 MPV 9.6 fL (9.4-12.4) 04/19/24 16:19 Immature Gran % (Auto) 0.3 % 04/19/24 16:19 Neut % (Auto) 68.5 % 04/19/24 16:19 Lymph % (Auto) 18.9 % 04/19/24 16:19 Mobile % (Auto) 9.6 % 04/19/24 16:19 Eos % (Auto) 2.3 % 04/19/24 16:19 Baso % (Auto) 0.4 % 04/19/24 16:19 Neut # (Auto) 7.12 K/uL (1.40-6.50) H 04/19/24 16:19 Lymph # (Auto) 1.96 K/uL (1.20-3.40) 04/19/24 16:19 Mobile # (Auto) 1.00 K/uL (0.11-0.59) H 04/19/24 16:19 Eos # (Auto) 0.24 K/uL (0.00-0.50) 04/19/24 16:19 Baso # (Auto) 0.04 K/uL (0.00-0.20) 04/19/24 16:19 Immature Gran # (Auto) 0.03 K/uL (0.01-0.20) 04/19/24 16:19 Sodium 138 mmol/L (136-145) 04/19/24 16:19 Potassium 3.6 mmol/L (3.5-5.1) 04/19/24 16:19 Chloride 101 mmol/L (98-107) 04/19/24 16:19 Carbon Dioxide 29 mmol/L (21-32) 04/19/24 16:19 Anion Gap 8 (3-11) 04/19/24 16:19 BUN 12 mg/dl (6-23) 04/19/24 16:19 Creatinine 0.69 mg/dl (0.6-1.2) 04/19/24 16:19 Est Cr Clr Drug Dosing 65.3 ml/min 04/19/24 16:19 eGFR 93.30 04/19/24 16:19 BUN/Creatinine Ratio 17.4 (10-20) 04/19/24 16:19 Glucose 94 mg/dl (70-99(Fasting)) 04/19/24 16:19 Calcium 9.6 mg/dl (8.6-10.3) 04/19/24 16:19 Total Bilirubin 1.0 mg/dl (0.2-1.0) 04/19/24 16:19 AST 10 U/L (13-39) L 04/19/24 16:19 ALT 7 U/L (7-52) 04/19/24 16:19 Alkaline Phosphatase 52 U/L (34-104) 04/19/24 16:19 Total Protein 7.2 gm/dl (6.0-8.3) 04/19/24 16:19 Albumin 4.2 gm/dl (3.4-5.0) 04/19/24 16:19 Globulin 3.0 gm/dl (2.5-4.0) 04/19/24 16:19 Albumin/Globulin Ratio 1.4 (0.9-2) 04/19/24 16:19 Lipase 14 U/L (11-82) 04/19/24 16:19 Urine Color Yellow 04/19/24 16:17 Urine Appearance Cloudy (Clear) A 04/19/24 16:17 Urine pH 5.5 (4.5-7.5) 04/19/24 16:17 Ur Specific [place] 1.012 (1.000-1.030) 04/19/24 16:17 Urine Protein 1+ (Negative) H 04/19/24 16:17 Urine Glucose (UA) Negative (Negative) 04/19/24 16:17 Urine Ketones 1+ (Negative) H 04/19/24 16:17 Urine Blood 2+ (Negative) H 04/19/24 16:17 Urine Nitrite Positive (Negative) A 04/19/24 16:17 Urine Bilirubin Negative (Negative) 04/19/24 16:17 Urine Urobilinogen Negative (Negative) 04/19/24 16:17 Ur Leukocyte Esterase 3+ (Negative) H 04/19/24 16:17 Urine WBC (Auto) >50 /hpf (0-5) H 04/19/24 16:17 Urine RBC (Auto) 6-10 /hpf (0-2) H 04/19/24 16:17 U Hyaline Cast (Auto) 3-5 /lpf (0-2) H 04/19/24 16:17 U Epithel Cells (Auto) 0-2 /hpf (0-2) 04/19/24 16:17 Urine Bacteria (Auto) 4+ (None Seen) H 04/19/24 16:17 Impressions Abdomen/Pelvis CT 04/19/24 16:07 EXAM: CT Abdomen and Pelvis Without Intravenous Contrast INDICATION: Renal mass. Obstructing kidney stone. TECHNIQUE: Axial computed tomography images of the abdomen and pelvis without intravenous contrast. Sagittal and coronal reformatted images were created and reviewed. This CT exam was performed using one or more of the following dose reduction techniques: automated exposure control, adjustment of the mA and/or kV according to patient size, and/or use of iterative reconstruction technique. COMPARISON: No relevant prior studies available. FINDINGS: Limitations: None. Lung bases: No abnormality noted. Pleural space: No visualized pleural effusion or pneumothorax. Heart: No abnormality noted. Mediastinum: Small sliding hiatal hernia noted. ABDOMEN: Liver: Lack of intravenous contrast limits detection of some masses. No abnormality noted. Gallbladder and bile ducts: Mild sludge in the gallbladder. No calcified stones. No ductal dilatation. Pancreas: No pancreatic mass, calcification, inflammation or ductal dilation noted. Spleen: No significant abnormality noted. Adrenals: No significant abnormality noted. Kidneys and ureters: There is a heterogeneous mass occupying the lower pole of the left kidney measuring 5.0 x 5.3 x 5.2 cm. There is either a second mass or a contiguous component in the left renal pelvis measuring 2.6 x 3.6 x 2.4 cm. There is mild right hydronephrosis and dilatation of the proximal ureter to a 7 x 11 mm stone just distal to the right UPJ. There are 1 or 2 punctate stones within the right kidney. There are 2 stones within the left kidney the larger measuring approximately 6 mm. No urinary gas. Stomach and bowel: Colonic diverticulosis without diverticulitis. No intestinal thickening or obstruction. PELVIS: Appendix: No findings to suggest acute appendicitis. Bladder: Appears normal for the degree of filling. No stones or inflammation. No large mass. Masses may not be detected in the absence of opacification. Reproductive: No abnormalities noted. ABDOMEN and PELVIS: Intraperitoneal space: No free air. No significant fluid collection. Bones/joints: Mild facet arthrosis and lumbar spondylosis. No acute osseous abnormality. Soft tissues: There are small bilateral fat containing inguinal hernias. Vasculature: Atherosclerotic calcification of the aorta and branches. No aneurysm. Lymph nodes: No pathologically enlarged lymph nodes. IMPRESSION: 1. 7 x 11 mm stone just distal to the right UPJ with mild hydronephrosis. 2. 1 and possibly 2 masses in the left kidney consistent with renal cell carcinoma. 3. Bilateral nonobstructing intrarenal stones. 4. Biliary sludge. ACT 112: Negative or not required by law. Electronically signed by Tara Yusuf 04-19-2024 5:21 PM Renal Ultrasound 04/19/24 20:34 Exam(s): US RENAL EXAM: US Retroperitoneal Limited, Renal CLINICAL HISTORY: Reason for exam: left renal lesions on CT. TECHNIQUE: Real-time limited ultrasound of the retroperitoneum with image documentation. COMPARISON: No relevant prior studies available. FINDINGS: Right kidney: The right renal length is 12.3 cm. There is moderate right-sided hydronephrosis. The proximal right ureter is prominent and measures up to 1.4 cm. No stones. Left kidney: There is a 5.1 x 4.5 x 4.7 cm complex mass associated with the lower pole of the left kidney. There is an additional 2.8 x 3.3 cm echogenic mass associated with the lower left renal pelvis.. Dedicated follow-up CT or MRI without and with contrast with renal mass protocol recommended. The left renal length is 12.5 cm. No left-sided hydronephrosis is noted. There is a questionable 5 mm lower pole left renal stone. IMPRESSION: 1. Moderate right-sided hydronephrosis and hydroureter. Please see separate CT abdomen and pelvis without contrast report.. 2. Complex left renal mass associated with the lower pole of the kidney and separate 2.8 x 3.3 cm solid mass associated with the renal pelvis.. Dedicated follow-up CT or MRI without and with contrast with renal mass protocol recommended. 3. Probable small fiber liquor lower pole left renal calculus. Electronically signed by: Faivo Castaneda MD 04/19/24 23:49 PM Code Status & VTE Plan Code Status Full code VTE Prophylaxis Plan VTE Prophylaxis will be ordered: Yes PG Care Time/CCT Total # of Minutes Spent Total Time Spent with Patient: Total time spent is greater than 50% in coordination of care (as documented) at patient's floor/unit and/or counseling patient: Coding Level of Care Code 06604 INT INP/OBS CARE 3/75MIN Diagnoses Hydronephrosis of right kidney N13.30 Calculus of proximal right ureter N20.1 Left renal mass N28.89 Controlled type 2 diabetes mellitus without complication, unspecified whether nursing home insulin use E11.9 Diabetes mellitus nursing home insulin use: unspecified terminal block assembler insulin use status Diabetes mellitus complication status: without complication NSAID sensitivity Z88.6 (4) Diabetes type 2, controlled Diabetes mellitus nursing home insulin use: unspecified terminal block assembler insulin use status Diabetes mellitus complication status: without complication Qualified Code(s): E11.9 - Type 2 diabetes mellitus without complications
[2024-04-19] MEDS: ACETAMINOPHEN 1,000 MG/100 ML VIAL IV PRN (23:18)
--- NOTE | 2024-04-19 23:51 | Ultrasound Report ---
Exam(s): US RENAL EXAM: US Retroperitoneal Limited, Renal CLINICAL HISTORY: Reason for exam: left renal lesions on CT. TECHNIQUE: Real-time limited ultrasound of the retroperitoneum with image documentation. COMPARISON: No relevant prior studies available. FINDINGS: Right kidney: The right renal length is 12.3 cm. There is moderate right-sided hydronephrosis. The proximal right ureter is prominent and measures up to 1.4 cm. No stones. Left kidney: There is a 5.1 x 4.5 x 4.7 cm complex mass associated with the lower pole of the left kidney. There is an additional 2.8 x 3.3 cm echogenic mass associated with the lower left renal pelvis.. Dedicated follow-up CT or MRI without and with contrast with renal mass protocol recommended. The left renal length is 12.5 cm. No left-sided hydronephrosis is noted. There is a questionable 5 mm lower pole left renal stone. IMPRESSION: 1. Moderate right-sided hydronephrosis and hydroureter. Please see separate CT abdomen and pelvis without contrast report.. 2. Complex left renal mass associated with the lower pole of the kidney and separate 2.8 x 3.3 cm solid mass associated with the renal pelvis.. Dedicated follow-up CT or MRI without and with contrast with renal mass protocol recommended. 3. Probable small fiber liquor lower pole left renal calculus. Electronically signed by: Favio Castaneda MD 04/19/24 23:49 PM
[2024-04-20] MEDS: HYDROmorphone INJ 0.5 MG/0.5 ML SYR IV PRN (06:29)
[2024-04-20 08:03] LABS: Basophils # (auto) 0.04 K/uL (0.00-0.20); Basophils % (auto) 0.4 %; Eosinophils # (auto) 0.13 K/uL (0.00-0.50); Eosinophils % (auto) 1.3 %; Hematocrit (blood only) 33.7 % (37.0-47.0); Hemoglobin 11.4 g/dl (12.0-16.0); Immature Granulocytes # (auto) 0.03 K/uL (0.01-0.20); Immature Granulocytes % (auto) 0.3 %; Lymphocytes # (auto) 1.16 K/uL (1.20-3.40); Lymphocytes % (auto) 11.7 %; Mean Corpuscular Hemoglobin 31.8 pg (25.0-34.0); Mean Corpuscular Hgb Conc 33.8 g/dL (32.0-36.0); Mean Corpuscular Volume 93.9 fL (80.0-100.0); Mean Platelet Volume 9.3 fL (9.4-12.4); Monocytes # (auto) 1.06 K/uL (0.11-0.59); Monocytes % (auto) 10.7 %; Neutrophils # (auto) 7.51 K/uL (1.40-6.50); Neutrophils % (auto) 75.6 %; Platelet Count 234 K/uL (130-400); RDW Coefficient of Variation 13.2 % (11.5-14.5); RDW Standard Deviation 45.2 fL (36.4-46.3); Red Blood Count 3.59 M/uL (4.20-5.40); White Blood Count 9.93 K/ul (4.8-10.8)
[2024-04-20] MEDS ORDERED: PHARMACY GLYCEMIC MGMT CONSULT PRN (08:15)
--- NOTE | 2024-04-20 08:26 | Anesthesiology Consultation ---
Date of Service April 20, 2024 Assessment & Plan Chart Review Chart Review: Acceptable Risk for Surgery and Patient NOT seen in Pre Admission Testing History Surgery Operation Date: 04/20/24 10:35 Proposed Procedures p Cystoscopy, Right Ureteroscopy Stent Placement - Naif Mancera MD Height/Weight Height: 5 ft 5 in Weight: 69.4 kg Allergies Allergy/AdvReac Type Severity Reaction Status Date / Time shellfish derived Allergy Unknown . Verified 03/30/24 13:08 Sulfa (Sulfonamide Allergy Unknown . Verified 03/30/24 13:08 Antibiotics) melon Allergy Unknown Verified 04/19/24 19:22 valdecoxib [From Bextra] Allergy rash Verified 03/30/24 13:08 nitrofurantoin AdvReac Unresponsiv Unverified 04/19/24 19:22 [From Macrodantin] e celebrx Allergy Severe Rash Uncoded 03/30/24 13:08 seafood Allergy Anaphylaxis Uncoded 03/30/24 13:08 Medications Home Medications Medication Instructions Recorded Confirmed Last Taken clopidogrel 75 mg tablet 75 mg PO QAM 03/12/19 04/19/24 04/19/24 cholecalciferol (vitamin D3) 125 5,000 unit PO QAM 09/17/22 04/19/24 04/19/24 mcg (5,000 unit) capsule OneTouch Verio test strips (blood #400 ea 11/02/22 03/30/24 Unknown sugar diagnostic) coQ10 (ubiquinol) 200 mg capsule 200 mg PO QPM 11/19/22 04/19/24 04/18/24 lancets 33 gauge (OneTouch Delica 11/19/22 03/30/24 Unknown Lancets) mecobalamin (vitamin B12) 1,000 1,000 mcg PO QDD 11/19/22 04/19/24 04/18/24 mcg chewable tablet levothyroxine 112 mcg tablet 112 mcg PO 5XWK #60 tabs 08/17/23 04/19/24 04/18/24 (Synthroid) pen needle, diabetic 33 gauge x #100 ea 08/17/23 03/30/24 Unknown 1/4" rosuvastatin 10 mg tablet 10 mg PO HS 10/07/23 04/19/24 04/19/24 Dexcom G7 Sensor (blood-glucose #3 ea 03/13/24 03/30/24 Unknown sensor) calcium 600 mg (as 1 tab PO QDD 04/19/24 04/19/24 04/18/24 carbonate)-vitamin D3 10 mcg (400 unit) tablet (Calcium 600 + D(3)) coenzyme Q10 200 mg capsule (Co 200 mg PO HS 04/19/24 04/19/24 04/19/24 Q-10) cyclobenzaprine 10 mg tablet 10 mg PO HS PRN Muscle Spasm 04/19/24 04/19/24 Unknown insulin glargine 100 unit/mL (3 18 unit subcut HS 04/19/24 04/19/24 04/18/24 22:00 mL) subcutaneous pen (Lantus Solostar U-100 Insulin) lisinopril 20 mg tablet 20 mg PO QAM 04/19/24 04/19/24 04/19/24 metformin 500 mg tablet,extended 1,000 mg PO BID 04/19/24 04/19/24 04/19/24 release 24 hr am turmeric 400 mg capsule 400 mg PO QDL 04/19/24 04/19/24 04/18/24 Active Medications Generic Name Dose Route Start Last Admin Trade Name Freq PRN Reason Stop Dose Admin Hydromorphone HCl 0.25 mg 04/19/24 20:22 04/19/24 21:37 Hydromorphone Inj 0.5 Mg/0.5 Ml Syr IV 05/03/24 20:21 0.25 mg Q3H PRN Administration Moderate Pain (Scale 4, 5, 6) Hydromorphone HCl 0.5 mg 04/19/24 20:22 04/20/24 06:29 Hydromorphone Inj 0.5 Mg/0.5 Ml Syr IV 05/03/24 20:21 0.5 mg Q3H PRN Administration Severe Pain (Scale 7, 8, 9,10) Acetaminophen 1,000 mg in 100 mls @ 400 mls/hr 04/19/24 20:22 04/19/24 23:57 Ofirmev IV 04/22/24 20:21 Infused Q8H PRN Infusion Pain or Fever Past Medical History Medical History Right knee DJD Right knee pain Past Family History Family History Mother Colonic polyp Fatty liver Hypertension Hypothyroidism Diabetes Hemochromatosis Father Diabetes Colon cancer Myocardial infarction Brother Diabetes Sister Hemochromatosis Family/Other Obstructive sleep apnea Past Surgical History Surgical History History of endometrial ablation History of tonsillectomy and adenoidectomy History of foot surgery History of bladder surgery Social History Smoking Status: Never smoker Do You Dip or Chew Tobacco: No Hx Alcohol Use: No Hx Substance Use: No Physical Exam Vital Signs Last Vital Signs Temp 37.5 C 04/20/24 07:45 Pulse 87 04/20/24 07:45 Resp 16 04/20/24 07:45 BP 143/71 H 04/20/24 07:45 Pulse Ox 92 04/20/24 07:45 O2 Del Method Room Air, Nasal CPAP 04/20/24 08:00 Testing Laboratory Results 04/20/24 07:39 Urine Color Yellow 04/19/24 16:17 Urine Appearance Cloudy (Clear) A 04/19/24 16:17 Urine pH 5.5 (4.5-7.5) 04/19/24 16:17 Ur Specific [place] 1.012 (1.000-1.030) 04/19/24 16:17 Urine Protein 1+ (Negative) H 04/19/24 16:17 Urine Glucose (UA) Negative (Negative) 04/19/24 16:17 Urine Ketones 1+ (Negative) H 04/19/24 16:17 Urine Nitrite Positive (Negative) A 04/19/24 16:17 Ur Leukocyte Esterase 3+ (Negative) H 04/19/24 16:17 Urine WBC (Auto) >50 /hpf (0-5) H 04/19/24 16:17 Urine RBC (Auto) 6-10 /hpf (0-2) H 04/19/24 16:17 U Hyaline Cast (Auto) 3-5 /lpf (0-2) H 04/19/24 16:17 U Epithel Cells (Auto) 0-2 /hpf (0-2) 04/19/24 16:17 Urine Bacteria (Auto) 4+ (None Seen) H 04/19/24 16:17
--- NOTE | 2024-04-20 08:27 | Urology Consultation ---
Date of Consultation April 20, 2024 Assessment & Plan (1) Calculus of proximal right ureter: (2) Hydronephrosis of right kidney: (3) Nephrolithiasis: (4) Left renal mass: Plan This is a 68-year-old female Patient is Labs show Urinalysis Urine culture Discussed options for stone management including Disscussed urteral stents in detail Risk and benefits to be discussed by Dr. Minor NPO Discussed plan of care with Patient will recieve pre surgery antibiotics History of Present Illness Attending Physician: Mikael Betts MD History of Present Illness Patient resting comfortably in bed. Minimal discomfort on the right side- said it is well controlled with pain medications. Voiding independently, admits to some urinary frequency Denies fevers, chills, nausea, and vomiting. Allergies Allergy/AdvReac Type Severity Reaction Status Date / Time shellfish derived Allergy Unknown . Verified 03/30/24 13:08 Sulfa (Sulfonamide Allergy Unknown . Verified 03/30/24 13:08 Antibiotics) melon Allergy Unknown Verified 04/19/24 19:22 valdecoxib [From Bextra] Allergy rash Verified 03/30/24 13:08 nitrofurantoin AdvReac Unresponsiv Unverified 04/19/24 19:22 [From Macrodantin] e celebrx Allergy Severe Rash Uncoded 03/30/24 13:08 seafood Allergy Anaphylaxis Uncoded 03/30/24 13:08 Home Medications Medication Instructions Recorded Confirmed Type clopidogrel 75 mg tablet 75 mg PO QAM 03/12/19 04/19/24 History cholecalciferol (vitamin D3) 125 5,000 unit PO QAM 09/17/22 04/19/24 History mcg (5,000 unit) capsule OneTouch Verio test strips (blood #400 ea 11/02/22 03/30/24 Rx sugar diagnostic) coQ10 (ubiquinol) 200 mg capsule 200 mg PO QPM 11/19/22 04/19/24 History lancets 33 gauge (OneTouch Delica 11/19/22 03/30/24 History Lancets) mecobalamin (vitamin B12) 1,000 1,000 mcg PO QDD 11/19/22 04/19/24 History mcg chewable tablet levothyroxine 112 mcg tablet 112 mcg PO 5XWK #60 tabs 08/17/23 04/19/24 Rx (Synthroid) pen needle, diabetic 33 gauge x #100 ea 08/17/23 03/30/24 Rx 1/4" rosuvastatin 10 mg tablet 10 mg PO HS 10/07/23 04/19/24 History Dexcom G7 Sensor (blood-glucose #3 ea 03/13/24 03/30/24 Rx sensor) calcium 600 mg (as 1 tab PO QDD 04/19/24 04/19/24 History carbonate)-vitamin D3 10 mcg (400 unit) tablet (Calcium 600 + D(3)) coenzyme Q10 200 mg capsule (Co 200 mg PO HS 04/19/24 04/19/24 History Q-10) cyclobenzaprine 10 mg tablet 10 mg PO HS PRN Muscle Spasm 04/19/24 04/19/24 History insulin glargine 100 unit/mL (3 18 unit subcut HS 04/19/24 04/19/24 History mL) subcutaneous pen (Lantus Solostar U-100 Insulin) lisinopril 20 mg tablet 20 mg PO QAM 04/19/24 04/19/24 History metformin 500 mg tablet,extended 1,000 mg PO BID 04/19/24 04/19/24 History release 24 hr turmeric 400 mg capsule 400 mg PO QDL 04/19/24 04/19/24 History Patient History Medical History Right knee DJD Right knee pain Surgical History History of endometrial ablation History of tonsillectomy and adenoidectomy History of foot surgery History of bladder surgery Family History Mother Colonic polyp Fatty liver Hypertension Hypothyroidism Diabetes Hemochromatosis Father Diabetes Colon cancer Myocardial infarction Brother Diabetes Sister Hemochromatosis Family/Other Obstructive sleep apnea Social History Smoking Status: Never smoker Second Hand Exposure: No; Do You Dip or Chew Tobacco: No; Hx Alcohol Use: No Hx Substance Use: No Preferred Language: Khmer Communication Ability: Effective Drum Plater Required: No Beliefs That Will Affect Care: None marital status: Current Living Situation: Spouse current occupational status: retired Feels Safe at Home: Yes Assistive Devices: CPAP Review of Systems Constitutional: as per Subjective / HPI Genitourinary: as per Subjective / HPI Physical Exam Constitutional: well developed and well nourished; no acute distress Respiratory: normal respiratory effort and able to speak in complete sentences Musculoskeletal: Extremities: extremities normal to inspection Psychiatric: Orientation: alert and oriented x 3 Results & Data Vital Signs (Past 12 Hours) Vital Signs Temp Pulse Pulse Resp BP BP Pulse Ox 04/20/24 08:00 04/20/24 07:45 37.5 C 87 16 143/71 H 92 04/20/24 07:00 83 04/20/24 04:11 36.9 C 102 H 18 106/65 94 04/19/24 23:30 95 H 04/19/24 23:27 37.1 C 91 H 18 150/74 H 96 04/19/24 21:00 98 H 19 158/68 H 92 O2 Del Method 04/20/24 08:00 Room Air, Nasal CPAP 04/20/24 07:45 Room Air 04/20/24 07:00 04/20/24 04:11 Room Air 04/19/24 23:30 04/19/24 23:27 Room Air 04/19/24 21:00 Room Air PG Care Time/CCT Total # of Minutes Spent Total Time Spent with Patient: Total time spent is greater than 50% in coordination of care (as documented) at patient's floor/unit and/or counseling patient: Coding Diagnoses Calculus of proximal right ureter N20.1 Hydronephrosis of right kidney N13.30 Nephrolithiasis N20.0 Left renal mass N28.89
[2024-04-20 08:28] LABS: Albumin Level 3.5 gm/dl (3.4-5.0); BUN Creatinine Ratio 15.2 (10-20); Calcium 8.7 mg/dl (8.6-10.3); Creatinine Clr Calc Pharmacy 77.6 ml/min; Magnesium 1.7 mg/dl (1.7-2.4); Phosphorus 3.3 mg/dl (2.5-4.9); Potassium 3.6 mmol/L (3.5-5.1)
--- NOTE | 2024-04-20 08:38 | Urology Progress Note ---
<Statement entered by Naif Mancera MD - 04/20/24 11:21> I have seen and discussed Ms. Bucio's case with RACHAEL Durand and agree with the above documentation. We will plan for cystoscopy, right retrograde pyelogram and right ureteral stent placement today. We reviewed risks and benefits of surgery. She expressed understanding would like to proceed. We also discussed the findings on her left kidney and that we will further evaluate these with additional imaging, likely MRI and review once more information is available. -Naif Mancera MD. Date of Service April 20, 2024 Assessment & Plan (1) Calculus of proximal right ureter: (2) Hydronephrosis of right kidney: (3) Acute UTI (urinary tract infection): (4) Left renal mass: Plan This is a 68-year-old female who presented to the ER on 04/19/2024 for right flank pain that was significantly worse over the past 24 hours. Urology was consulted for an 11 mm right UPJ stone with mild hydronephrosis. CT also notable for concerns 2 masses in the left kidney, possible RCC. Further workup is pending on left renal masses. Patient is without distress and resting comfortably in bed, right flank pain has improved Patient is slightly hypertensive, afebrile Labs show creatinine 0.66, WBCs 9.93, hemoglobin 11.4 Urinalysis suspicious for UTI Urine culture is currently pending Discussed options for stone management including cystoscopy, right uteroscopy, right stent placement Discussed ureteral stents in detail, risk and benefits of procedure discussed Risk and benefits we will also be discussed by Dr. Mancera Patient currently elects surgical intervention with right stent placement Keep NPO Discussed plan of care with Dr. Mancera including surgical intervention Patient will receive pre surgery antibiotics Continue supportive and other medical care per primary team Trend antibiotics according to urine culture results Urology will follow along Admission and Anticipated Discharge Date Admission Date: April 19, 2024 Subjective Patient resting comfortably in bed. Minimal discomfort on the right side- said it is well controlled with pain medications. Voiding independently, admits to some urinary frequency Denies fevers, chills, nausea, and vomiting. Review of Systems 2 Constitutional: as per Subjective / HPI Genitourinary: as per Subjective / HPI Physical Exam Constitutional: well developed and well nourished; no acute distress Respiratory: normal respiratory effort and able to speak in complete sentences Musculoskeletal: Extremities: extremities normal to inspection Psychiatric: Orientation: alert and oriented x 3 Results & Data Vital Signs (Past 12 Hours) Vital Signs Temp Pulse Pulse Resp BP BP Pulse Ox 04/20/24 08:00 04/20/24 07:45 37.5 C 87 16 143/71 H 92 04/20/24 07:00 83 04/20/24 04:11 36.9 C 102 H 18 106/65 94 04/19/24 23:30 95 H 04/19/24 23:27 37.1 C 91 H 18 150/74 H 96 04/19/24 21:00 98 H 19 158/68 H 92 O2 Del Method 04/20/24 08:00 Room Air, Nasal CPAP 04/20/24 07:45 Room Air 04/20/24 07:00 04/20/24 04:11 Room Air 04/19/24 23:30 04/19/24 23:27 Room Air 04/19/24 21:00 Room Air PG Care Time/CCT Total # of Minutes Spent Total Time Spent with Patient: Total time spent is greater than 50% in coordination of care (as documented) at patient's floor/unit and/or counseling patient: Coding Level of Care Code 53861 SUB INP/OBS CARE 2/35MIN Diagnoses Calculus of proximal right ureter N20.1 Hydronephrosis of right kidney N13.30 Acute UTI (urinary tract infection) N39.0 Left renal mass N28.89
[2024-04-20] MEDS ORDERED: DEXTROSE 50% 50 ML SYRINGE IV PRN (08:45)
[2024-04-20] MEDS ORDERED: GLUCAGON FOR INJ 1 MG VIAL SQ PRN (08:45)
[2024-04-20] MEDS ORDERED: CARBOHYDRATES FOR HYPOGLYCEMIA PO PRN (08:45)
[2024-04-20] MEDS ORDERED: GLUCOSE 40% GEL 15 GM TUBE PO PRN (08:45)
[2024-04-20] MEDS ORDERED: GLUCOSE 10 TAB/TUBE PO PRN (08:45)
--- NOTE | 2024-04-20 08:53 | Pharmacy Report ---
Pharmacy Glycemic Short Note 2 - Date of Service April 20, 2024 - Glycemic Short BSG Results (Last 24 hours): 04/19/24 04/20/24 16:19 07:39 Glucose 94 100 H OUTPATIENT ANTIDIABETIC REGIMEN: * Lantus 18 units hs, metformin 1 gm bid ASSESSMENT: * 68 year old admitted with worsening right flank pain, concerns for renal mass. Urology consulted for potential procedure, patient NPO. Patient is type 2 diabetic managed on insulin/oral agent outpatient. Pharmacy consulted for glycemic management. BSG 100 mg/dL - this morning. Will start novolog Q6 hours. Will have a reduced scale for basal insulin at HS time due to NPO status. PLAN FOR INPATIENT GLYCEMIC CONTROL: * Hold outpatient oral diabetes medications * Basal insulin * Lantus 10-12 units HS * Bolus insulin * NovoLog per scale ACHS or Q6hrs while NPO * Goal Range: Low 110 mg/dL - High 140 mg/dL * Correction Factor: 35 mg/dL/unit * Nutritional / Prandial insulin per carb ratio of 1 unit per 11 grams CHO consumed
[2024-04-20] MEDS: PLASMA-LYTE A 1,000 ML IV SCH (09:33)
[2024-04-20] MEDS: LEVOTHYROXINE SODIUM 112 MCG TABLET PO SCH (09:33)
[2024-04-20] MEDS ORDERED: LIDOCAINE 2% 2 ML VIAL/AMP(20MG/ML) INFIL ONE (11:17)
[2024-04-20] MEDS ORDERED: PROPOFOL IV EMULSION 10 MG/ML 20 ML VIAL IV ONE (11:17)
[2024-04-20] MEDS ORDERED: fentaNYL citrate PF 100 MCG/2 ML VIAL ONE (11:20)
[2024-04-20] MEDS ORDERED: MIDAZOLAM HCL 1 MG/ML 2ML VIAL ONE (11:20)
[2024-04-20] MEDS ORDERED: PROMETHAZINE HCL 6.25 MG in SODIUM CHLORIDE 0.9% 50 ML IV PRN (11:37)
[2024-04-20] MEDS ORDERED: ATROPINE SULFATE 0.1 MG/ML 10ML SYR IV PRN (11:37)
[2024-04-20] MEDS ORDERED: DROPERIDOL 5 MG/2 ML VIAL IV PRN (11:37)
[2024-04-20] MEDS ORDERED: ePHEDrine sulfate 50 MG/ML AMP IV PRN (11:37)
[2024-04-20] MEDS ORDERED: ONDANSETRON INJ 2 MG/ML 2 ML VIAL ONE (11:53)
[2024-04-20] MEDS ORDERED: DEXAMETHASONE SOD INJ 4 MG/ML VIAL ONE (11:53)
--- NOTE | 2024-04-20 12:06 | Operative Report ---
PG Post Operative Report Pre & Post Diagnosis Operation Date: 04/20/24 10:35 Preoperative diagnosis: Right ureteral stone, urinary tract infection Postoperative diagnosis: Right ureteral stone, urinary tract infection I identified the patient and participated in the time-out.: Yes Procedure Operation Date: 04/20/24 10:35 Cystoscopy, right retrograde Polygram, right ureteral stent placement Surgeon Naif Mancera MD Protective Signal Installer Helper None Estimated Blood Loss 0 Findings Consistent with Post-Op Diagnosis Specimens None Drains 6 Martiniquais x 24 cm double-J ureteral stent in the right ureter 16 Martiniquais Palm catheter per urethra Anesthesia Type MAC Complications none Disposition Accompanied Patient To Recovery: Yes Disposition: Recovery Room Indications This is a 68-year-old female who presented emergency department with right flank pain. She was found to have a right ureteral stone as well as concern for urinary tract infection. She is being brought to the OR for right ureteral stent placement to decompress the right kidney. Description of Procedure The patient was identified in the holding area and informed consent was confirmed. She was marked on the right side, then was taken to the operating room where anesthesia was initiated. She was placed in the dorsal lithotomy position with all pressure points appropriately padded. She was prepped and dr aped in the usual sterile fashion and a preoperative timeout was performed. A well-lubricated cystoscope was inserted per urethra and panendoscopy was performed. The urethra was normal in appearance. The bladder was of normal size with ureteral orifices in orthotopic position. There is a fair amount of urine in the bladder as well as some sediment, suggesting incomplete emptying. The right ureteral orifice was identified and cannulated with a 5 Martiniquais open- ended catheter. A retrograde pyelogram was performed demonstrating the distal ureter was normal in course and caliber. In the proximal ureter there was a shadow suspicious for the stone. There was some hydronephrosis on the right side. A 0.038" ZIPwire was advanced to the level of the kidney under fluoroscopic guidance. Over the wire, a 6 Martiniquais x 24 centimeter double-J ureteral stent was advanced. When the wire was removed, the proximal curl was visualized in the kidney with x-ray, and the distal curl visualized in the bladder with the cystoscope. All instrumentation was removed. To ensure maximal drainage of the bladder, a 16 [place]iqu[place] Palm catheter was placed with 10 mL in the balloon. The catheter was attached to gravity drainage. The patient was then awakened from anesthesia and was brought to the PACU in stable condition. I attest to the content of the Intraoperative Record and any orders documented therein. Any exceptions are noted below.
[2024-04-20] MEDS: DIATRIZOATE MEGLUMINE 30% 100ML VIAL INSTIL PRN (12:20)
--- NOTE | 2024-04-20 12:26 | Fluoroscopy Report ---
FL retrograde includes kub CLINICAL HISTORY: RIGHT STENTright-sided cystourethrogram COMPARISON STUDY: CT 04/19/2024 FLUOROSCOPY TIME: 4.9 seconds FLUOROSCOPY IMAGES: 3 EXPOSURE DOSE: 0.4412 mGy FINDINGS: A right ureteral stent appears to be in satisfactory positioning, the distal portion howeve r was not imaged. Contrast opacified right ureter demonstrates persistent dilation. IMPRESSION: Fluoroscopic assistance as above. ACT 112: Negative or not required by law. Electronically signed by: Shaun Manuel M.D. 04/20/2024 12:25 PM
--- NOTE | 2024-04-20 13:07 | Hospitalist Progress Note ---
Date of Service April 20, 2024 Assessment & Plan (1) Hydronephrosis of right kidney: (2) Calculus of proximal right ureter: (3) Left renal mass: (4) Diabetes type 2, controlled: (5) Moderate obstructive sleep apnea: (6) Hypercholesteremia: (7) HTN (hypertension): (8) Hypothyroidism: Plan 68-year-old female with past medical history of hypertension, hyperlipidemia, type 2 diabetes mellitus, GARRICK on CPAP, hypothyroidism who presents to the ED with 2 weeks of worsening right flank pain and found to have a right UPJ stone with mild hydronephrosis and 2 masses in the left kidney concerning for renal cell carcinoma. #Right UPJ stone with mild hydronephrosis #UTI secondary to infected stone Urology saw the patient 7 x 11 mm proximal right UPJ stone hydronephrosis- Noted on CT of abdomen and pelvis Patient underwent cystoscopy, right retrograde pyelogram, right ureteral stent placement with urologist Dr. Mancera today Continue ceftriaxone 1 g IV daily (day 2) Follow-up urine culture: Results pending Await urology follow-up postprocedure #Left renal masses Noted on CT abdomen pelvis Urology saw the patient Urine cytology with reflex FISH ordered on admission Awaiting MRI Await urology recommendations post MRI #Type 2 diabetes mellitus Outpatient airplane mechanic is Dr. Christiano blount A1c from 03/28/2024 is 6.7 Patient recently started on Mounjaro by endocrinology as outpatient Pharmacy consult for glycemic control Monitor glycemic control #Essential hypertension #Hyperlipidemia Hold lisinopril for now since blood pressures are low normal Monitor vital signs #Hypothyroidism TSH is 1.899 from 03/28/2024 Continue levothyroxine home dose #GARRICK Continue CPAP at bedtime CODE STATUS: Full code DVT prophylaxis: Bilateral SCDs, start Lovenox 40 mg subcutaneous daily Care plan discussed with patient, nursing staff and updated at bedside Admission and Anticipated Discharge Date Admission Date: April 19, 2024 Subjective Patient seen and examined H&P reviewed Labs reviewed Radiology reviewed Patient just got back from cystoscopy is at bedside Denies any nausea, vomiting, diarrhea, abdominal pain, fever, chills, chest pain or shortness of breath Feels thirsty Aware of CAT scan report Social history: Lives at home with her . Independent of ADLs. Denies tobacco use or alcohol use. 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 Physical Exam Physical Exam: General: No acute distress Psych: Awake and alert, oriented x 3 HEENT: Anicteric sclera, moist oral mucosa CVS: Regular rate and rhythm Lungs: Bilateral air entry, no wheezing noted Abdomen: Soft, nontender, no rebound, no guarding Ext: No lower extremity edema, no calf tenderness Neuro: No focal motor deficits noted Results & Data Results & Data Vital Signs (Past 12 Hours) Vital Signs Temp Pulse Pulse Resp BP BP Pulse Ox 04/20/24 12:55 36.9 C 87 18 133/72 94 04/20/24 12:40 37.3 C 87 18 137/71 96 04/20/24 12:25 37.9 C H 86 17 136/60 96 04/20/24 12:15 84 17 136/65 98 04/20/24 12:07 37.2 C 93 H 18 120/68 98 04/20/24 11:15 37.8 C H 97 H 18 151/77 H 94 04/20/24 08:00 04/20/24 07:45 37.5 C 87 16 143/71 H 92 04/20/24 07:00 83 04/20/24 04:11 36.9 C 102 H 18 106/65 94 O2 Del Method O2 Flow Rate 04/20/24 12:55 Room Air 04/20/24 12:40 Room Air 04/20/24 12:25 Room Air 04/20/24 12:15 Oxymask 2 04/20/24 12:07 Oxymask 4 04/20/24 11:15 Room Air 04/20/24 08:00 Room Air, Nasal CPAP 04/20/24 07:45 Room Air 04/20/24 07:00 04/20/24 04:11 Room Air Laboratory Results Laboratory Results - last 24 hr 04/19/24 04/19/24 04/20/24 16:17 16:19 07:39 WBC 10.39 9.93 RBC 4.04 L 3.59 L Hgb 13.0 11.4 L Hct 38.0 33.7 L MCV 94.1 93.9 MCH 32.2 31.8 MCHC 34.2 33.8 RDW Std Deviation 45.2 45.2 RDW Coeff of Richard 13.2 13.2 Plt Count 298 234 MPV 9.6 9.3 L Immature Gran % (Auto) 0.3 0.3 Neut % (Auto) 68.5 75.6 Lymph % (Auto) 18.9 11.7 [place] % (Auto) 9.6 10.7 Eos % (Auto) 2.3 1.3 Baso % (Auto) 0.4 0.4 Neut # (Auto) 7.12 H 7.51 H Lymph # (Auto) 1.96 1.16 L [place] # (Auto) 1.00 H 1.06 H Eos # (Auto) 0.24 0.13 Baso # (Auto) 0.04 0.04 Immature Gran # (Auto) 0.03 0.03 Sodium 138 138 Potassium 3.6 3.6 Chloride 101 102 Carbon Dioxide 29 27 Anion Gap 8 9 BUN 12 10 Creatinine 0.69 0.66 Est Cr Clr Drug Dosing 65.3 77.6 eGFR 93.30 94.31 BUN/Creatinine Ratio 17.4 15.2 Glucose 94 100 H POC Glucose Calcium 9.6 8.7 Phosphorus 3.3 Magnesium 1.7 Total Bilirubin 1.0 AST 10 L ALT 7 Alkaline Phosphatase 52 Total Protein 7.2 Albumin 4.2 3.5 Globulin 3.0 Albumin/Globulin Ratio 1.4 Lipase 14 Vitamin B12 408 Urine Color Yellow Urine Appearance Cloudy A Urine pH 5.5 Ur Specific [place] 1.012 Urine Protein 1+ H Urine Glucose (UA) Negative Urine Ketones 1+ H Urine Blood 2+ H Urine Nitrite Positive A Urine Bilirubin Negative Urine Urobilinogen Negative Ur Leukocyte Esterase 3+ H Urine WBC (Auto) >50 H Urine RBC (Auto) 6-10 H U Hyaline Cast (Auto) 3-5 H U Epithel Cells (Auto) 0-2 Urine Bacteria (Auto) 4+ H 04/20/24 04/20/24 11:20 12:10 WBC RBC Hgb Hct MCV MCH MCHC RDW Std Deviation RDW Coeff of Richard Plt Count MPV Immature Gran % (Auto) Neut % (Auto) Lymph % (Auto) [place] % (Auto) Eos % (Auto) Baso % (Auto) Neut # (Auto) Lymph # (Auto) [place] # (Auto) Eos # (Auto) Baso # (Auto) Immature Gran # (Auto) Sodium Potassium Chloride Carbon Dioxide Anion Gap BUN Creatinine Est Cr Clr Drug Dosing eGFR BUN/Creatinine Ratio Glucose POC Glucose 93 84 Calcium Phosphorus Magnesium Total Bilirubin AST ALT Alkaline Phosphatase Total Protein Albumin Globulin Albumin/Globulin Ratio Lipase Vitamin B12 Urine Color Urine Appearance Urine pH Ur Specific [place] Urine Protein Urine Glucose (UA) Urine Ketones Urine Blood Urine Nitrite Urine Bilirubin Urine Urobilinogen Ur Leukocyte Esterase Urine WBC (Auto) Urine RBC (Auto) U Hyaline Cast (Auto) U Epithel Cells (Auto) Urine Bacteria (Auto) Diagnostic Findings Abdomen/Pelvis CT 04/19/24 16:07 EXAM: CT Abdomen and Pelvis Without Intravenous Contrast INDICATION: Renal mass. Obstructing kidney stone. TECHNIQUE: Axial computed tomography images of the abdomen and pelvis without intravenous contrast. Sagittal and coronal reformatted images were created and reviewed. This CT exam was performed using one or more of the following dose reduction techniques: automated exposure control, adjustment of the mA and/or kV according to patient size, and/or use of iterative reconstruction technique. COMPARISON: No relevant prior studies available. FINDINGS: Limitations: None. Lung bases: No abnormality noted. Pleural space: No visualized pleural effusion or pneumothorax. Heart: No abnormality noted. Mediastinum: Small sliding hiatal hernia noted. ABDOMEN: Liver: Lack of intravenous contrast limits detection of some masses. No abnormality noted. Gallbladder and bile ducts: Mild sludge in the gallbladder. No calcified stones. No ductal dilatation. Pancreas: No pancreatic mass, calcification, inflammation or ductal dilation noted. Spleen: No significant abnormality noted. Adrenals: No significant abnormality noted. Kidneys and ureters: There is a heterogeneous mass occupying the lower pole of the left kidney measuring 5.0 x 5.3 x 5.2 cm. There is either a second mass or a contiguous component in the left renal pelvis measuring 2.6 x 3.6 x 2.4 cm. There is mild right hydronephrosis and dilatation of the proximal ureter to a 7 x 11 mm stone just distal to the right UPJ. There are 1 or 2 punctate stones within the right kidney. There are 2 stones within the left kidney the larger measuring approximately 6 mm. No urinary gas. Stomach and bowel: Colonic diverticulosis without diverticulitis. No intestinal thickening or obstruction. PELVIS: Appendix: No findings to suggest acute appendicitis. Bladder: Appears normal for the degree of filling. No stones or inflammation. No large mass. Masses may not be detected in the absence of opacification. Reproductive: No abnormalities noted. ABDOMEN and PELVIS: Intraperitoneal space: No free air. No significant fluid collection. Bones/joints: Mild facet arthrosis and lumbar spondylosis. No acute osseous abnormality. Soft tissues: There are small bilateral fat containing inguinal hernias. Vasculature: Atherosclerotic calcification of the aorta and branches. No aneurysm. Lymph nodes: No pathologically enlarged lymph nodes. IMPRESSION: 1. 7 x 11 mm stone just distal to the right UPJ with mild hydronephrosis. 2. 1 and possibly 2 masses in the left kidney consistent with renal cell carcinoma. 3. Bilateral nonobstructing intrarenal stones. 4. Biliary sludge. ACT 112: Negative or not required by law. Electronically signed by Tara Yusuf 04-19-2024 5:21 PM Renal Ultrasound 04/19/24 20:34 Exam(s): US RENAL EXAM: US Retroperitoneal Limited, Renal CLINICAL HISTORY: Reason for exam: left renal lesions on CT. TECHNIQUE: Real-time limited ultrasound of the retroperitoneum with image documentation. COMPARISON: No relevant prior studies available. FINDINGS: Right kidney: The right renal length is 12.3 cm. There is moderate right-sided hydronephrosis. The proximal right ureter is prominent and measures up to 1.4 cm. No stones. Left kidney: There is a 5.1 x 4.5 x 4.7 cm complex mass associated with the lower pole of the left kidney. There is an additional 2.8 x 3.3 cm echogenic mass associated with the lower left renal pelvis.. Dedicated follow-up CT or MRI without and with contrast with renal mass protocol recommended. The left renal length is 12.5 cm. No left-sided hydronephrosis is noted. There is a questionable 5 mm lower pole left renal stone. IMPRESSION: 1. Moderate right-sided hydronephrosis and hydroureter. Please see separate CT abdomen and pelvis without contrast report.. 2. Complex left renal mass associated with the lower pole of the kidney and separate 2.8 x 3.3 cm solid mass associated with the renal pelvis.. Dedicated follow-up CT or MRI without and with contrast with renal mass protocol recommended. 3. Probable small fiber liquor lower pole left renal calculus. Electronically signed by: Favio Castaneda MD 04/19/24 23:49 PM Retrograde Pyelogram 04/20/24 00:00 FL retrograde includes kub CLINICAL HISTORY: RIGHT STENTright-sided cystourethrogram COMPARISON STUDY: CT 04/19/2024 FLUOROSCOPY TIME: 4.9 seconds FLUOROSCOPY IMAGES: 3 EXPOSURE DOSE: 0.4412 mGy FINDINGS: A right ureteral stent appears to be in satisfactory positioning, the distal portion however was not imaged. Contrast opacified right ureter demonstrates persistent dilation. IMPRESSION: Fluoroscopic assistance as above. ACT 112: Negative or not required by law. Electronically signed by: Shaun Manuel M.D. 04/20/2024 12:25 PM PG Care Time/CCT Total # of Minutes Spent Total Time Spent with Patient: Total time spent is greater than 50% in coordination of care (as documented) at patient's floor/unit and/or counseling patient: Coding Level of Care Code 21827 SUB INP/OBS CARE 3/50MIN Diagnoses Hydronephrosis of right kidney N13.30 Calculus of proximal right ureter N20.1 Left renal mass N28.89 Controlled type 2 diabetes mellitus without complication, unspecified whether intermediate manager insulin use E11.9 Diabetes mellitus complication status: without complication Diabetes mellitus chcf insulin use: unspecified chcf insulin use status Moderate obstructive sleep apnea G47.33 Hypercholesteremia E78.00 HTN (hypertension) I10 Acquired hypothyroidism E03.9 Hypothyroidism type: acquired (4) Diabetes type 2, controlled Diabetes mellitus complication status: without complication Diabetes mellitus intermediate manager insulin use: unspecified chcf insulin use status Qualified Code(s): E11.9 - Type 2 diabetes mellitus without complications (8) Hypothyroidism Hypothyroidism type: acquired Qualified Code(s): E03.9 - Hypothyroidism, unspecified
[2024-04-20] MEDS: INSULIN ASPART PER UNIT CHARGE SC SCH ×2 (13:20→17:35)
--- NOTE | 2024-04-20 15:28 | Anesthesiology Progress Note ---
Date of Service April 20, 2024 Anesthesia Post Procedure Vital Signs Vital Signs: Temp Pulse Pulse Resp BP BP BP 04/20/24 15:10 36.6 C 72 18 120/67 04/20/24 14:10 36.6 C 88 16 122/68 04/20/24 13:10 36.6 C 88 16 127/66 04/20/24 12:55 36.9 C 87 18 133/72 04/20/24 12:40 37.3 C 87 18 137/71 04/20/24 12:25 37.9 C H 86 17 136/60 04/20/24 12:15 84 17 136/65 04/20/24 12:07 37.2 C 93 H 18 120/68 04/20/24 11:15 37.8 C H 97 H 18 151/77 H 04/20/24 08:00 37.3 C 89 18 133/74 04/20/24 08:00 04/20/24 07:45 37.5 C 87 16 143/71 H 04/20/24 07:00 83 04/20/24 04:11 36.9 C 102 H 18 106/65 04/19/24 23:30 95 H 04/19/24 23:27 37.1 C 91 H 18 150/74 H 04/19/24 21:00 98 H 19 158/68 H 04/19/24 19:00 102 H 24 176/82 H 04/19/24 17:59 96 H 04/19/24 17:38 98 H 22 180/91 H 04/19/24 15:53 36.9 C 97 H 18 154/63 H Pulse Ox O2 Del Method O2 Flow Rate 04/20/24 15:10 95 Room Air 04/20/24 14:10 93 Room Air 04/20/24 13:10 94 Room Air 04/20/24 12:55 94 Room Air 04/20/24 12:40 96 Room Air 04/20/24 12:25 96 Room Air 04/20/24 12:15 98 Oxymask 2 04/20/24 12:07 98 Oxymask 4 04/20/24 11:15 94 Room Air 04/20/24 08:00 95 Room Air 04/20/24 08:00 Room Air, Nasal CPAP 04/20/24 07:45 92 Room Air 04/20/24 07:00 04/20/24 04:11 94 Room Air 04/19/24 23:30 04/19/24 23:27 96 Room Air 04/19/24 21:00 92 Room Air 04/19/24 19:00 94 Room Air 04/19/24 17:59 04/19/24 17:38 96 Room Air 04/19/24 15:53 98 Room Air Pain Intensity Right Flank: Pain Intensity: 0 Transfer of Care Handoff Completed per policy Notes Mental Status: alert / awake / arousable and participated in evaluation Nausea / Vomiting: adequately controlled Pain: adequately controlled Airway Patency, RR, SpO2: stable & adequate BP & HR: stable & adequate Hydration State: stable & adequate Anesthetic Complications: no major complications apparent and Pt Satisfied with anesthetic care
[2024-04-20] MEDS: cefTRIAXone SODIUM 1,000 MG/50 ML BAG IV STA (16:33)
[2024-04-20] MEDS: CYANOCOBALAMIN 1000 MCG/ML VIAL IM SCH (16:33)
[2024-04-20] MEDS ORDERED: cefTRIAXone SODIUM 1,000 MG/50 ML BAG IV SCH ×2 (18:00→19:00)
[2024-04-20] MEDS: ENOXAPARIN INJ 40 MG/0.4 ML SYR SQ SCH (20:40)
[2024-04-20] MEDS: LANTUS PER UNIT CHARGE SC SCH (20:41)
[2024-04-20] MEDS ORDERED: LANTUS PER UNIT CHARGE SC SCH (21:00)
[2024-04-20] MEDS: LORazepam 1 MG TAB PO PRN (23:45)
[2024-04-21] MEDS: GADOBUTROL 65ML VIAL IV ONE (01:01)
--- NOTE | 2024-04-21 02:02 | Magnetic Resonance Report ---
EXAM: MR abdomen wo/w con CLINICAL HISTORY: left renal mass seen on CT. right side flank pain into right lower abdomen. right upj stone. patient haD a stent placed today. uti. CT abd/pelvis 04/19 ultrasound 04/19/24. injected 7cc gadavist through existing iv left arm uneventful at 0032. room 283-2 images 1430 TECHNIQUE: Multiplanar/multisequence MRI of the abdomen was performed with and without the use of gadolinium. COMPARISON: CT scan dated 19 april 2024. FINDINGS: The liver is of normal signal intensity without evidence of a hepatic mass. No evidence of intrahepatic biliary ductal dilatation. The gallbladder is unremarkable. Limited evaluation of the bowel secondary to peristalsis, however, demonstrates no definitive abnormality. The adrenal glands demonstrate no gross mass. The pancreas is unremarkable. 4.5 x 5.1 x 7 cm (AP x TR x CC) relatively well defined, partially exophytic, heterogeneously enhancing solid cystic lesion, is noted involving lower pole and interpolar region of the left kidney with extension into the renal sinus. No macroscopic fat is noted within it. No calcifications are noted on the CT scan study. Extension into the renal pelvis is noted. Multiple cystic/necrotic areas are noted within it. Mild perinephric fat stranding is noted. Extension into the renal pelvis is noted. Posteriorly it is abutting the abdominal wall with no intervening fat planes. However, no obvious signs of infiltration. Solid component shows restricted diffusion on DW images. No obvious evidence of main renal vein thrombosis is noted. Inferior vena cava shows normal opacification. No enlarged retroperitoneal lymph nodes are noted. No abnormal enhancement/enhancing mass lesion seen in rest of the solid organs. No evidence of upper abdominal ascites or mesenteric mass. IMPRESSION: 1. 4.5 x 5.1 x 7 cm (AP x TR x CC) relatively well defined, partially exophytic, heterogeneously enhancing, solid cystic lesion, is noted involving lower pole and interpolar region of the left kidney as described above. Possibility of neoplastic etiology. Suggested histopathological correlation. 2. Main renal vein, inferior vena cava show normal opacification. No enlarged retroperitoneal lymph nodes are noted. 3. No enhancing lesion involving rest of the solid organs noted. 4. Obstructive uropathy changes on the right side have significantly reduced in the current study as compared to the previous. Electronically signed by Jasper Gutierrez 04-21-2024 02:01 AM
--- OUTSIDE RECORDS SUMMARY | 2024-04-21 08:28 | External Medical Summary | Continuity of Care Document ---
Author Name Unknown Organization [facility] [id number] Address [address] [place] [id number] Care Team Providers Care Pharmacy Messenger Name Role Phone Usman Chan Primary Care Physician [phone] [id number] Date(s): 04/04/24 - 04/04/24 [facility] [address] [facility] [place] [facility] [facility] [address] [place] [id number] Encounter Diagnosis Right knee DJD(Discharge Diagnosis) - 04/04/24 Discharge Disposition: Home or Self Care Attending Physician: RACHAEL Fajardo Cory D Allergies, Adverse Reactions, Alerts Substance Criticality Severity Reaction Reaction Severity Status melons anaphylaxis Active shellfish anaphylaxis Active sulfa drugs rash Active Bextra rash Active seafood anaphylaxis Active Assessment and Plan Extracted from: Title:Clinical Document Author:RACHAEL Fajardo C ory D Date:04/04/24 OUTPATIENT NOTE Name: STEFFANY AVELAR Patient Number:1 [id number] : 1955 Date of Service: 04/04/2024 Chief complaint: Right knee pain HPI: This 68-year-old female presents today for reevaluation of her right knee. She has known DJD. She received a cortisone injection [address] Antonio oleary. She states her knee pain was fairly significant a few days ago when she made this appointment. Over the last 48 hours it has decreased considerably. She was hoping for a cortisone injection today. Now she is not sure that she needs it. She denies any catching or locking. No buckling. Pain was worse with weightbearing. No new injury. No additional complaints. Physical exam General: Well-developed, well-nourished, elderly female, in no acute distress. Sitting in the chair. Alert and oriented. Skin: Warm dry with good turgor. No rashes. No intra-articular effusion in the right knee. Musculoskeletal: Right knee evaluation reveals full terminal extension. Flexion to greater than 100 degrees. Strength is 5/5 with fair quad tone. She has mild medial joint line discomfort with palpation. No lateral joint line discomfort today. No peripatellar discomfort. Stable collateral ligaments. No palpable defect in the patellar tendon or quadriceps tendon. She is able to perform a straight leg raise. Ambulating today with a normal gait. Neurologic: Gross sensation is intact across the right leg by soft touch. Peripheral pulses are 2+. Data: Radiographic imaging previously obtained was reviewed again with the patient. She has moderate osteoarthritic changes of the right knee. Periarticular osteophytes are present along with joint space narrowing. She is not [id number]. Impression: Right knee DJD Plan: The patient was educated regarding today's findings. Conservative care measures were discussed. She may receive another cortisone injection in May. She is currently here too soon. Option of viscosupplementation injections was discussed. She will think about it for now. Continue with conservative treatment such as compression, ice, elevation, and OTC medications. Call with any other concerns. This dictation has been completed using [employer] text voice recognition software. Grammatical errors, omissions, insertions, and misspellings may be present due to the limitations of the software. Medications ammonium lactate 12% topical cream Start: 02/11/21 1:58:00 PM EDT, 1 appl, topical, qAM Start Date: 02/11/21 Status: Ordered BD needle Ultra-Fine Pen Jessenia 32G x 4mm Start: 08/30/19 6:42:00 PM EDT, See Instructions, Disp# 100 each, Refills: 5, Use with insulin injection one time daily., Pharmacy: [facility] Start Date: 08/30/19 Status: Ordered betamethasone dipropionate 0.05% topical cream Start: 02/17/22 11:41:00 AM EDT, 1 appl, topical, bid, Disp# 50 g, Refills: 1, to hands and feet, Pharmacy: [facility] Start Date: 02/17/22 Status: Ordered Calcium 600+D Start: 10/10/19 9:23:00 AM EDT, 1 tab, PO, Daily Start Date: 10/10/19 Status: Ordered CoQ10 Start: 03/16/23 8:06:00 AM EST Start Date: 03/16/23 Status: Ordered Flexeril 5 mg oral tablet Start: 10/03/20 12:24:00 PM EDT, 1 tab, PO, bid, Disp# 30 tab, Refills: 1, PRN: as needed for spasm,Pharmacy: [facility] Start Date: 10/03/20 Status: Ordered Lantus Solostar Pen 100 units/mL subcutaneous solution Start: 06/27/19 11:51:00 AM EST, 10 unit =, subQ, Daily, Disp# 15 mL, Refills: 10, Pharmacy: [facility] Start Date: 06/27/19 Status: Ordered Lexapro Start: 02/01/14 10:47:00 AM EDT, 20 mg =, PO, Daily Start Date: 02/01/14 Status: Ordered lisinopril Start: 02/01/14 10:48:00 AM EDT, 20 mg =, PO, Daily Start Date: 02/01/14 Status: Ordered metformin Start: 02/01/14 10:48:00 AM EDT, 1,000 mg =, PO, bid Start Date: 02/01/14 Status: Ordered mometasone 0.1% topical cream Start: 02/11/21 1:58:00 PM EDT, 1 appl, topical, Daily Start Date: 02/11/21 Status: Ordered One Touch Delica (33G) Lancets Start: 04/13/19 5:42:00 PM EST, See Instructions, Disp# 1 box, Refills: 5, Check blood sugar 4 timesdaily., Pharmacy: [facility] Start Date: 04/13/19 Status: Ordered One Touch Delica Plus (33G) Lancets Start: 11/07/19 2:44:00 PM EDT, See Instructions, Disp# 100 each, Refills: 5, Check blood sugar 4 times daily, Pharmacy: [facility] Start Date: 11/07/19 Status: Ordered One Touch Ultra Blue Test Strips Start: 05/31/20 3:37:00 PM EST, See Instructions, Disp# 300 each, Refills: 10, Test BS 4 times Daily, Note to Pharmacy: E11.9, Pharmacy: [facility] Start Date: 05/31/20 Status: Ordered Ozempic 2 mg/1.5 mL (0.25 mg or 0.5 mg dose) subcutaneous solution Start: 10/16/21 8:26:00 AM EDT Start Date: 10/16/21 Status: Ordered Phenergan 25 mg oral tablet Start: 03/26/20 1:18:00 PM EST, 1 tab, PO, q6h, Disp# 30 tab, Refills: 1, PRN: as needed for nausea/vomiting, Pharmacy: [facility] Start Date: 03/26/20 Status: Ordered Plavix 75 mg oral tablet Start: 04/16/09 2:10:47 PM EST, 1 tab, PO, Daily, Refills: 0, current medication from another provider Start Date: 04/16/09 Status: Ordered rosuvastatin 10 mg oral tablet Start: 12/22/22 9:32:00 AM EDT, 1 tab, PO, every other day Start Date: 12/22/22 Status: Ordered Synthroid 112 mcg (0.112 mg) oral tablet Start: 06/04/20 11:03:00 AM EST, See Instructions, Disp# 80 tab, Refills: 1, 1 tab PO Daily for 5 days a week. (5 pills per week), Brand Medically Necessary, Pharmacy: [facility] Start Date: 06/04/20 Status: Ordered turmeric Start: 03/16/23 8:06:00 AM EST Start Date: 03/16/23 Status: Ordered Vitamin B12 Start: 03/16/23 8:06:00 AM EST Start Date: 03/16/23 Status: Ordered Vitamin D3 1000 intl units (25 mcg) oral tablet Start: 10/10/19 9:24:00 AM EDT, See Instructions, 3 tabs daily Start Date: 10/10/19 Status: Ordered Mental Status 04/04/24 Barriers to Learning one year None evide nt Mandatory Health Literacy Documentation Yes Health Literacy Communication Barriers N ever Primary Language Zimbabwean Problem List Condition Confirmation Course Effective Dates Status H ealth Status Informant Arthritis Confirmed Active Arthritis of carpometacarpal (CMC) joint of left thumb Confirmed Active Arthritis of right foot Confirmed Active DEPRESSION Confirmed Active Diabetes Confirmed Active Family history of breast cancer Confirmed Active Fibrocystic disease of breast Confirmed Active H/O: migraine 1 Confirmed Active H/O: surgery 2 Confirmed Active HTN (hypertension) Confirmed Active Hypothyroidism Confirmed Active Lentigo Confirmed Active Metatarsalgia, right foot Confirmed Active Migraine headache Confirmed Active Neuroma 3 Confirmed Active Plantar fasciitis, left Confirmed Active Sebaceous hyperplasia Confirmed Active Seborrheic keratoses Confirmed Active Sleep apnea Confirmed Active Soft fibroma 4 Confirmed Active TIA 5 Confirmed Active Type 2 diabetes mellitus Confirmed Active Varicose veins of legs Confirmed Active Weight disorder Confirmed Active 1complex 2right foot surgery tumor removed and torn ligament in toe 04/24/2009 3right foot 4right foot 2007 right side Diagnosis Diagnosis Type Effective Dates Health Status Cl inical Service Informant Right knee DJD Discharge Diagnosis 04/04/24 Procedures Procedure Date Related Diagnosis Body Site Status ablation of uterus Comple mariaelena exision of mass of right foot Completed repair of torn meniscus C ompleted tonsillectomy Completed Unknown Completed Social History Social History Type Response Smoking Status Never smoked cigaret rai Sex Female Sex Representation Female (finding) Outpatient Note * RACHAEL Fajardo, Sahil D: PERFORM Event Display: .Outpt Note Authored Date: [id number] OUTPATIENT NOTE Name: STEFFANY AVELAR Patient Number:1 [id number] : 1955 Date of Service: 04/04/2024 Chief complaint: Right knee pain HPI: This 68-year-old female presents today for reevaluation of her right knee. She has known DJD. She received a cortisone injection [address] Antonio oleary. She states her knee pain was fairly significant a few days ago when she made this appointment. Over the last 48 hours it has decreased considerably. She was hoping for a cortisone injection today. Now she is not sure that she needs it. She denies any catching or locking. No buckling. Pain was worse with weightbearing. No new injury. No additional complaints. Physical exam General: Well-developed, well-nourished, elderly female, in no acute distress. Sitting in the chair. Alert and oriented. Skin: Warm dry with good turgor. No rashes. No intra-articular effusion in the right knee. Musculoskeletal: Right knee evaluation reveals full terminal extension. Flexion to greater than 100degrees. Strength is 5/5 with fair quad tone. She has mild medial joint line discomfort with palpation. No lateral joint line discomfort today. No peripatellar discomfort. Stable collateral ligaments. No palpable defect in the patellar tendon or quadriceps tendon. She is able to perform a straight leg raise. Ambulating today with a normal gait. Neurologic: Gross sensation is intact across the right leg by soft touch. Peripheral pulses are 2+. Data: Radiographic imaging previously obtained was reviewed again with the patient. She has moderate osteoarthritic changes of the right knee. Periarticular osteophytes are present along with joint space narrowing. She is not [id number]. Impression: Right knee DJD Plan: The patient was educated regarding today's findings. Conservative care measures were discussed. She may receive another cortisone injection in May. She is currently here too soon. Option ofviscosupplementation injections was discussed. She will think about it for now. Continue with conservative treatment such as compression, ice, elevation, and OTC medications. Call with any other concerns. This dictation has been completed using [employer] text voice recognition software. Grammatical errors, omissions, insertions, and misspellings may be present due to the limitations of the software. Electronic Signature on File Electronically Reviewed/Signed by: Sahil Fajardo PA-C Author Signature Dt/Tm:04/04/2024 02:24 PM Division of Sports Medicine Electronically Reviewed/Signed by: Apolinar Dasilva MD Cosigner Signature Dt/Tm: 04/05/2024 08:14AM Division of Sports Medicine CDS Patient Care team information Care Team Personnel Name: CORINNE Ruby Colleen Position: RN - Outpatient Member Role: Lifetime - never expires Name: DO Chan Brian Rodger Position: Referring Member Role: Primary Care Provider Address: [facility] [address] [place] [address] [place] Name: JU De Anda Christina L Position: Physician - Podiatry Member Role: Lifetime Relationship Address: [address] [address] [place] Care Team Related Persons Name: JUAN J AVELAR Name: MIGUEL A AVELAR
[2024-04-21] MEDS: cefTRIAXone SODIUM 1,000 MG/50 ML BAG IV SCH (08:50)
--- NOTE | 2024-04-21 09:12 | Urology Progress Note ---
Date of Service April 21, 2024 Assessment & Plan (1) Calculus of proximal right ureter: Plan: Patient is status post cystoscopy and right ureteral stent placement with Dr. Mancera. Afebrile with stable vitals, no new labs at time of visit today. Tolerating right ureteral stent without bother. Urine culture prelim with E. coli. Continue with broad-spectrum antibiotics and narrow per sensitivity data when available. Okay to discontinue Palm catheter todaymonitor for void. Will arrange outpatient follow-up to set up definitive stone management. (2) Left renal mass: Plan: Patient underwent abdomen MRI for further evaluation of left renal mass seen on CT. MRI showed 4.5 x 5.1 x 7 cm relatively well-defined, partially exophytic, heterogeneously enhancing, solid cystic lesion noted involving the lower pole and interpolar region of the left kidney with extension into the renal sinus. Reviewed and discussed MRI with patient. We discussed completing right stone treatment and then addressing management/surgical options for left renal mass. Will arrange outpatient follow-up to discuss. will sign off, recall as needed. Admission and Anticipated Discharge Date Admission Date: April 19, 2024 Subjective Patient seen and examined at bedside this morning. She is resting in bed, arouses easily to her name. No acute issues overnight. Generally feeling better today. Denies flank discomfort. Palm intact. No fever or chills. Review of Systems Constitutional: as per Subjective / HPI Genitourinary: as per Subjective / HPI Physical Exam Constitutional: well developed and well nourished; no acute distress Respiratory: normal respiratory effort; no respiratory distress and no labored breathing Gastrointestinal (Abdomen): Inspection/Auscultation: abdomen normal to inspection Musculoskeletal: Head/Neck/Chest: normocephalic Neurologic: moves all extremities and awake Psychiatric: Orientation: alert and oriented x 3 Genitourinary: Palm draining clear yellow Results & Data Vital Signs (Past 12 Hours) Vital Signs Temp Pulse Pulse Resp BP Pulse Ox O2 Del Method 04/21/24 07:41 36.6 C 70 20 112/60 96 Room Air 04/21/24 07:00 68 04/21/24 02:46 36.3 C L 71 16 97/58 L 95 Room Air 04/21/24 00:09 67 04/20/24 23:27 36.7 C 65 16 105/63 95 Room Air PG Care Time/CCT Total # of Minutes Spent Total Time Spent with Patient: Total time spent is greater than 50% in coordination of care (as documented) at patient's floor/unit and/or counseling patient: Coding Level of Care Code 89162 SUB INP/OBS CARE 2/35MIN Diagnoses Calculus of proximal right ureter N20.1 Left renal mass N28.89
--- NOTE | 2024-04-21 09:13 | Hospitalist Progress Note ---
Date of Service April 21, 2024 Assessment & Plan (1) Hydronephrosis of right kidney: (2) Calculus of proximal right ureter: (3) Left renal mass: (4) Diabetes type 2, controlled: (5) Moderate obstructive sleep apnea: (6) Hypercholesteremia: (7) HTN (hypertension): (8) Hypothyroidism: Plan 68-year-old female with past medical history of hypertension, hyperlipidemia, type 2 diabetes mellitus, GARRICK on CPAP, hypothyroidism who presents to the ED with 2 weeks of worsening right flank pain and found to have a right UPJ stone with mild hydronephrosis and 2 masses in the left kidney concerning for renal cell carcinoma. #Right UPJ stone with mild hydronephrosis #UTI secondary to infected stone Urology saw the patient 7 x 11 mm proximal right UPJ stone hydronephrosis- Noted on CT of abdomen and pelvis Patient underwent cystoscopy, right retrograde pyelogram, right ureteral stent placement with urologist Dr. Mancera today Continue ceftriaxone 1 g IV daily (day 3) Urine cultures growing E. coli sensitive to ceftriaxone, resistant to Augmentin Urology saw the patient and planning on removing Palm today and urology has recommended outpatient follow-up with urology for definitive stone treatment and also left renal mass #Left renal masses Noted on CT abdomen pelvis Urology saw the patient Urine cytology showed moderate acute cystitis, negative for high-grade urothelial carcinoma. MRI showed left renal cystic mass Urology has recommended outpatient follow-up with Dr. Mancera #Type 2 diabetes mellitus Outpatient performance reporter is Dr. Christiano Lange A1c from 03/28/2024 is 6.7 Patient recently started on Mounjaro by endocrinology as outpatient Pharmacy consult for glycemic control Monitor glycemic control #Essential hypertension #Hyperlipidemia Hold lisinopril for now since blood pressures are low normal Monitor vital signs #Hypothyroidism TSH is 1.899 from 03/28/2024 Continue levothyroxine home dose #GARRICK Continue CPAP at bedtime CODE STATUS: Full code DVT prophylaxis: Bilateral SCDs and Lovenox 40 mg subcutaneous daily Discharge planning Home likely tomorrow if medically stable Care plan discussed with patient, nursing staff Admission and Anticipated Discharge Date Admission Date: April 19, 2024 Subjective Patient seen and examined Reports feeling much better today Denies any headache, dizziness, lightheadedness, chest pain, shortness of breath, fever, chills, back pain Physical Exam Physical Exam: General: No acute distress Psych: Awake and alert, oriented x 3 HEENT: Anicteric sclera, moist oral mucosa CVS: Regular rate and rhythm Lungs: Bilateral air entry, no wheezing noted Abdomen: Soft, nontender, no rebound, no guarding Ext: No lower extremity edema, no calf tenderness Gu: Palm in place Neuro: No focal motor deficits noted Results & Data Results & Data Vital Signs (Past 12 Hours) Vital Signs Temp Pulse Pulse Resp BP Pulse Ox O2 Del Method 04/21/24 07:41 36.6 C 70 20 112/60 96 Room Air 04/21/24 07:00 68 04/21/24 02:46 36.3 C L 71 16 97/58 L 95 Room Air 04/21/24 00:09 67 04/20/24 23:27 36.7 C 65 16 105/63 95 Room Air Laboratory Results Laboratory Results - last 24 hr 04/20/24 04/20/24 04/20/24 07:39 11:20 12:10 POC Glucose 93 84 Vitamin B12 408 04/20/24 04/20/24 04/21/24 17:18 20:07 07:53 POC Glucose 242 H 205 H 127 H Vitamin B12 Diagnostic Findings Retrograde Pyelogram 04/20/24 00:00 FL retrograde includes kub CLINICAL HISTORY: RIGHT STENTright-sided cystourethrogram COMPARISON STUDY: CT 04/19/2024 FLUOROSCOPY TIME: 4.9 seconds FLUOROSCOPY IMAGES: 3 EXPOSURE DOSE: 0.4412 mGy FINDINGS: A right ureteral stent appears to be in satisfactory positioning, the distal portion however was not imaged. Contrast opacified right ureter demonstrates persistent dilation. IMPRESSION: Fluoroscopic assistance as above. ACT 112: Negative or not required by law. Electronically signed by: Shaun Manuel M.D. 04/20/2024 12:25 PM Abdomen MRI 04/21/24 00:05 EXAM: MR abdomen wo/w con CLINICAL HISTORY: left renal mass seen on CT. right side flank pain into right lower abdomen. right upj stone. patient haD a stent placed today. uti. CT abd/pelvis 04/19 ultrasound 04/19/24. injected 7cc gadavist through existing iv left arm uneventful at 0032. room 283-2 images 1430 TECHNIQUE: Multiplanar/multisequence MRI of the abdomen was performed with and without the use of gadolinium. COMPARISON: CT scan dated 19 april 2024. FINDINGS: The liver is of normal signal intensity without evidence of a hepatic mass. No evidence of intrahepatic biliary ductal dilatation. The gallbladder is unremarkable. Limited evaluation of the bowel secondary to peristalsis, however, demonstrates no definitive abnormality. The adrenal glands demonstrate no gross mass. The pancreas is unremarkable. 4.5 x 5.1 x 7 cm (AP x TR x CC) relatively well defined, partially exophytic, heterogeneously enhancing solid cystic lesion, is noted involving lower pole and interpolar region of the left kidney with extension into the renal sinus. No macroscopic fat is noted within it. No calcifications are noted on the CT scan study. Extension into the renal pelvis is noted. Multiple cystic/necrotic areas are noted within it. Mild perinephric fat stranding is noted. Extension into the renal pelvis is noted. Posteriorly it is abutting the abdominal wall with no intervening fat planes. However, no obvious signs of infiltration. Solid component shows restricted diffusion on DW images. No obvious evidence of main renal vein thrombosis is noted. Inferior vena cava shows normal opacification. No enlarged retroperitoneal lymph nodes are noted. No abnormal enhancement/enhancing mass lesion seen in rest of the solid organs. No evidence of upper abdominal ascites or mesenteric mass. IMPRESSION: 1. 4.5 x 5.1 x 7 cm (AP x TR x CC) relatively well defined, partially exophytic, heterogeneously enhancing, solid cystic lesion, is noted involving lower pole and interpolar region of the left kidney as described above. Possibility of neoplastic etiology. Suggested histopathological correlation. 2. Main renal vein, inferior vena cava show normal opacification. No enlarged retroperitoneal lymph nodes are noted. 3. No enhancing lesion involving rest of the solid organs noted. 4. Obstructive uropathy changes on the right side have significantly reduced in the current study as compared to the previous. Electronically signed by Jasper Gutierrez 04-21-2024 02:01 AM PG Care Time/CCT Total # of Minutes Spent Total Time Spent with Patient: Total time spent is greater than 50% in coordination of care (as documented) at patient's floor/unit and/or counseling patient: Coding Level of Care Code 23973 SUB INP/OBS CARE 2/35MIN Diagnoses Hydronephrosis of right kidney N13.30 Calculus of proximal right ureter N20.1 Left renal mass N28.89 Controlled type 2 diabetes mellitus without complication, unspecified whether jail insulin use E11.9 Diabetes mellitus complication status: without complication Diabetes mellitus jail insulin use: unspecified watermelon inspector insulin use status Moderate obstructive sleep apnea G47.33 Hypercholesteremia E78.00 HTN (hypertension) I10 Acquired hypothyroidism E03.9 Hypothyroidism type: acquired (4) Diabetes type 2, controlled Diabetes mellitus complication status: without complication Diabetes mellitus jail insulin use: unspecified jail insulin use status Qualified Code(s): E11.9 - Type 2 diabetes mellitus without complications (8) Hypothyroidism Hypothyroidism type: acquired Qualified Code(s): E03.9 - Hypothyroidism, unspecified
[2024-04-21 09:20] LABS: Basophils # (auto) 0.02 K/uL (0.00-0.20); Basophils % (auto) 0.2 %; Eosinophils # (auto) 0.04 K/uL (0.00-0.50); Eosinophils % (auto) 0.4 %; Hematocrit (blood only) 34.4 % (37.0-47.0); Hemoglobin 11.6 g/dl (12.0-16.0); Immature Granulocytes # (auto) 0.06 K/uL (0.01-0.20); Immature Granulocytes % (auto) 0.6 %; Lymphocytes # (auto) 1.27 K/uL (1.20-3.40); Lymphocytes % (auto) 11.8 %; Mean Corpuscular Hgb Conc 33.7 g/dL (32.0-36.0); Mean Platelet Volume 9.5 fL (9.4-12.4); Monocytes # (auto) 0.91 K/uL (0.11-0.59); Monocytes % (auto) 8.5 %; Neutrophils # (auto) 8.43 K/uL (1.40-6.50); Neutrophils % (auto) 78.5 %; Platelet Count 257 K/uL (130-400); RDW Coefficient of Variation 12.9 % (11.5-14.5); RDW Standard Deviation 43.4 fL (36.4-46.3); Red Blood Count 3.74 M/uL (4.20-5.40); White Blood Count 10.73 K/ul (4.8-10.8)
[2024-04-21 09:40] LABS: Albumin Globulin Ratio 1.2 (0.9-2); Albumin Level 3.4 gm/dl (3.4-5.0); BUN Creatinine Ratio 29.6 (10-20); Bilirubin,Total 0.5 mg/dl (0.2-1.0); Creatinine Clr Calc Pharmacy 94.8 ml/min; Globulin 2.8 gm/dl (2.5-4.0); Magnesium 1.9 mg/dl (1.7-2.4); Potassium 3.8 mmol/L (3.5-5.1); Total Protein 6.2 gm/dl (6.0-8.3)
[2024-04-21 13:22] LABS: Hematocrit (blood only) 32.6 % (37.0-47.0); Hemoglobin 11.4 g/dl (12.0-16.0); Mean Corpuscular Hemoglobin 32.3 pg (25.0-34.0); Mean Corpuscular Volume 92.4 fL (80.0-100.0); Mean Platelet Volume 9.6 fL (9.4-12.4); Platelet Count 247 K/uL (130-400); RDW Coefficient of Variation 12.9 % (11.5-14.5); RDW Standard Deviation 43.5 fL (36.4-46.3); Red Blood Count 3.53 M/uL (4.20-5.40); White Blood Count 11.59 K/ul (4.8-10.8)
[2024-04-21 13:43] LABS: BUN Creatinine Ratio 26.8 (10-20); Calcium 8.7 mg/dl (8.6-10.3); Creatinine Clr Calc Pharmacy 91.4 ml/min; Magnesium 1.9 mg/dl (1.7-2.4); Potassium 3.7 mmol/L (3.5-5.1)
[2024-04-21] MEDS: SENNA 8.6 MG TAB PO ONE (15:40)
[2024-04-21] MEDS: POLYETHYLENE (MIRALAX) 17 GM PACK PO SCH (16:25)
[2024-04-21] MEDS: MAGNESIUM OXIDE 400 MG TAB PO SCH (16:25)
[2024-04-21] MEDS: POTASSIUM CHLORIDE CRTAB 20 MEQ TABCR PO STA (16:27)
[2024-04-21] MEDS: SENNA 8.6 MG TAB PO SCH (20:14)
[2024-04-21] MEDS: MELATONIN 3 MG TAB PO STA (21:32)
[2024-04-22 06:06] LABS: Basophils # (auto) 0.04 K/uL (0.00-0.20); Basophils % (auto) 0.5 %; Eosinophils # (auto) 0.35 K/uL (0.00-0.50); Eosinophils % (auto) 4.7 %; Hematocrit (blood only) 34.7 % (37.0-47.0); Hemoglobin 11.5 g/dl (12.0-16.0); Immature Granulocytes # (auto) 0.03 K/uL (0.01-0.20); Immature Granulocytes % (auto) 0.4 %; Lymphocytes # (auto) 2.56 K/uL (1.20-3.40); Lymphocytes % (auto) 34.3 %; Mean Corpuscular Hemoglobin 30.9 pg (25.0-34.0); Mean Corpuscular Hgb Conc 33.1 g/dL (32.0-36.0); Mean Corpuscular Volume 93.3 fL (80.0-100.0); Mean Platelet Volume 9.5 fL (9.4-12.4); Monocytes # (auto) 0.75 K/uL (0.11-0.59); Neutrophils # (auto) 3.74 K/uL (1.40-6.50); Neutrophils % (auto) 50.1 %; Platelet Count 268 K/uL (130-400); RDW Standard Deviation 44.2 fL (36.4-46.3); Red Blood Count 3.72 M/uL (4.20-5.40); White Blood Count 7.47 K/ul (4.8-10.8)
[2024-04-22 06:23] LABS: BUN Creatinine Ratio 23.8 (10-20); Calcium 8.6 mg/dl (8.6-10.3); Creatinine Clr Calc Pharmacy 81.3 ml/min; Magnesium 1.9 mg/dl (1.7-2.4)
[2024-04-22 08:00] VITALS: PULSE 62; RESP 16; TEMP 98.1; O2SAT 98
--- NOTE | 2024-04-22 13:16 | Discharge Summary ---
Discharge Summary Date of Service April 22, 2024 Principal Dx & Hospital Course #1 = Principal Diagnosis (1) Hydronephrosis of right kidney: (2) Calculus of proximal right ureter: (3) Left renal mass: (4) Diabetes type 2, controlled: (5) Moderate obstructive sleep apnea: (6) Hypercholesteremia: (7) HTN (hypertension): (8) Hypothyroidism: Plan 68-year-old female with past medical history of hypertension, hyperlipidemia, type 2 diabetes mellitus, GARRICK on CPAP, hypothyroidism who presents to the ED with 2 weeks of worsening right flank pain and found to have a right UPJ stone with mild hydronephrosis and 2 masses in the left kidney concerning for renal cell carcinoma. #Right UPJ stone with mild hydronephrosis #UTI secondary to infected stone Urology saw the patient 7 x 11 mm proximal right UPJ stone hydronephrosis- Noted on CT of abdomen and pelvis Patient underwent cystoscopy, right retrograde pyelogram, right ureteral stent placement with urologist Dr. Mancrea on 04/20/2024 Patient is finished 4 days of IV ceftriaxone and has been switched to oral levofloxacin 500 mg p.o. daily for 4 more days based on urine culture: Patient informed on the risk and side effects and benefits of levofloxacin including risk of tendinitis/tendon rupture and verbalized understanding of instructions. I have advised her to avoid strenuous activity and Shon for at least a week while she is on levofloxacin Urine cultures growing E. coli sensitive to ceftriaxone, resistant to Augmentin Palm catheter was removed this morning and patient is urinating without any issues Urology has recommended outpatient follow-up with urology for definitive stone treatment and also left renal mass #Left renal mass Noted on CT abdomen pelvis Urology saw the patient Urine cytology showed moderate acute cystitis, negative for high-grade urothelial carcinoma. MRI showed left renal cystic mass Urology has recommended outpatient follow-up with Dr. Mancera #Type 2 diabetes mellitus Outpatient time piece repairer is Dr. Christiano Lange A1c from 03/28/2024 is 6.7 Patient recently started on Mounjaro by endocrinology as outpatient: Patient not tolerating side effects very well She will continue with her metformin at home dose Lantus 18 units subcutaneous daily and follow-up with endocrinology as needed #Essential hypertension #Hyperlipidemia Blood pressure sitting was 147/80 and standing was 113/60 this morning Denies any dizziness or lightheadedness Tolerating oral diet She will resume statin on discharge I have asked her to cut down lisinopril dose from 20 mg to 10 mg daily and follow-up with her PCP within 1 week to monitor her orthostatic vital sign and lisinopril dose can be reviewed by PCP at that time #Hypothyroidism TSH is 1.899 from 03/28/2024 Continue levothyroxine home dose #GARRICK Continue CPAP at bedtime Patient seen and examined. She is stable for discharge home. She is tolerating oral diet and ambulating without any issues. I have gone over the discharge care plan, medications and follow-up with the patient in great detail and answered all her questions. This discharge took greater than 30 minutes to coordinate Notes For Next Care Provider PCP please see discharge instructions: Please monitor blood pressure orthostatically and review lisinopril dose Admission HPI Per Admitting Provider The patient is a 68-year-old female with a past medical history including right rotator cuff tear, diabetes mellitus type 2, complex sleep apnea syndrome, hypercholesterolemia, hypothyroidism and hypertension. The patient has no prev ious history of urinary tract infections or kidney stones. CT scan of abdomen pelvis revealed a 7 x 11 mm distal right UPJ stone, and mild right hydronephrosis, UA suggested urinary tract infection, and she was then referred for evaluation for admission. Discharge Exam General: No acute distress Psych: Awake and alert, oriented x 3 HEENT: Anicteric sclera, moist oral mucosa CVS: Regular rate and rhythm Lungs: Bilateral air entry, no wheezing noted Abdomen: Soft, nontender, no rebound, no guarding Ext: No lower extremity edema, no calf tenderness Neuro: No focal motor deficits noted Discharge Plan Discharge Items Patient Disposition: Home - Self-Care Reason For Visit: R URETERAL STONE, R HYDRO, UTI, L RENAL LESIONS Discharge Diagnosis: #Right UPJ stone with mild hydronephrosis #E. coli UTI secondary to infected stone #Left renal mass #Type 2 diabetes mellitus #Essential hypertension #Hyperlipidemia #Hypothyroidism #GARRIKC Activity: As commented below Activity Comment: Avoid strenuous activity/Shon for 1 week while taking Levaquin Non-emergency contact: Primary Care Provider Call non-emergency contact if: you have any medication questions, your symptoms worsen and you have a fever Follow-up/Referrals: Naif Mancera MD [Physician] - Usman Chan [Primary Care Provider] - Diet: Carb Consistent or DM2 and Heart Healthy Addtl Attending Provider Instructions: DISCHARGE INSTRUCTION TO PATIENT/FAMILY: Follow-up with your primary care provider within 1 week regarding: Posthospital discharge, medication review, medication refills and follow-up on all your medical problems, blood pressure monitoring Please take all your discharge medications, discharge information and discharge instructions to all your doctors appointments. Avoid all NSAIDs including ibuprofen, Motrin, Advil, Aleve, naproxen, meloxicam, Toradol, diclofenac Lisinopril dose has been reduced from 20 mg daily to 10 mg daily because your blood pressure has been on the low side. Please follow-up with your PCP within 1 week to monitor your blood pressure and review lisinopril dosing. Please have your PCP check your blood pressure lying, sitting and standing You have been prescribed levofloxacin 500 mg daily for E. coli urinary tract infection secondary to infected stone. Start your medication on 04/23/2024. Avoid strenuous activities/Shon classes while taking levofloxacin for at least a week as levofloxacin can cause tendinitis and tendon rupture Follow-up with urologist Dr. Mancera in 1 to 2 weeks time for definitive treatment of kidney stones and also for follow-up plan regarding left renal mass Labs through PCP in 1 week: CBC, CMP, MG Pending Studies at Discharge: No Stand-Alone Forms: My [facility] [email or web address], Smoking Cessation Medications and DC Order Prescriptions: New levofloxacin 500 mg tablet 500 mg PO DAILY 4 Days Qty: 4 0RF Rx Instructions: START ON 04/23/24 polyethylene glycol 3350 [Miralax] 17 gram Powder In Packet 17 g PO DAILY PRN (Reason: constipation) Qty: 14 0RF Rx Instructions: Available [id number]-vpp-fqdyows sennosides [Senokot] 8.6 mg Tablet 17.2 mg PO HS PRN (Reason: constipation) Qty: 7 0RF Rx Instructions: Available [id number]-[id number] Continued (DME) OneTouch Verio test strips Strip See Rx Instructions .ROUTE .MEDSUPPLY Qty: 400 3RF Rx Instructions: check blood sugar up to 4 times a day (DME) pen needle, diabetic 33 gauge x 1/4" needle See Rx Instructions .Route Qty: 100 4RF Rx Instructions: Once daily with insulin levothyroxine [Synthroid] 112 mcg tablet 112 mcg PO 5XWK Qty: 60 3RF Rx Instructions: 112 mcg 5 times a week mon-fri....@ 5am (DME) Dexcom G7 Sensor Device See Rx Instructions .Route Qty: 3 12RF Rx Instructions: Change every 10 days coQ10 (ubiquinol) 200 mg capsule 200 mg PO QPM (DME) lancets [OneTouch Delica Lancets] 33 gauge misc See Rx Instructions .ROUTE .MEDSUPPLY Rx Instructions: Test blood sugars 4 times a day clopidogrel 75 mg tablet 75 mg PO QAM cholecalciferol (vitamin D3) 125 mcg (5,000 unit) capsule 5,000 unit PO QAM rosuvastatin 10 mg tablet 10 mg PO HS mecobalamin (vitamin B12) 1,000 mcg tablet,chewable 1,000 mcg PO QDD cyclobenzaprine 10 mg tablet 10 mg PO HS PRN (Reason: Muscle Spasm) metformin 500 mg tablet extended release 24 hr 1,000 mg PO BID calcium carbonate-vitamin D3 [Calcium 600 + D(3)] 600 mg-10 mcg (400 unit) Tablet 1 tab PO QDD insulin glargine [Lantus Solostar U-100 Insulin] 100 unit/mL (3 mL) insulin pen 18 unit subcut HS turmeric 400 mg Capsule 400 mg PO QDL coenzyme Q10 [Co Q-10] 200 mg Capsule 200 mg PO HS Changed lisinopril 20 mg tablet 10 mg PO QAM Qty: 0 0RF Discharge Orders: Discharge Order (Routine); Ordered 04/22/24 Ordered By: Mikael Betts Admission Data Admit Date/Time: 04/19/24 20:40 Attending Provider: Mikael Betts Admit Provider: Randy Lucas Primary Care Provider: Usman Chan Other Providers: Randy Lucas Hospital Stay Data Consultations 04/19/24 20:04 ED Decision to Admit Stat 04/19/24 20:13 ED Decision to Admit Stat Procedures Performed Operation Date: 04/20/24 10:35 Actual Procedures p Cystoscopy, Right Ureteroscopy, Stent Placement(Right) - Naif Mancera MD Diagnostic Imagining Performed 04/19/24 16:07 CT abd pelvis wo con Stat 04/19/24 20:34 US Renal Bladder [US renal/blad retro comp] Urgent 04/20/24 FL retrograde includes kub Routine 04/21/24 00:05 MR abdomen wo/w con Stat Abdomen/Pelvis CT 04/19/24 16:07 EXAM: CT Abdomen and Pelvis Without Intravenous Contrast INDICATION: Renal mass. Obstructing kidney stone. TECHNIQUE: Axial computed tomography images of the abdomen and pelvis without intravenous contrast. Sagittal and coronal reformatted images were created and reviewed. This CT exam was performed using one or more of the following dose reduction techniques: automated exposure control, adjustment of the mA and/or kV according to patient size, and/or use of iterative reconstruction technique. COMPARISON: No relevant prior studies available. FINDINGS: Limitations: None. Lung bases: No abnormality noted. Pleural space: No visualized pleural effusion or pneumothorax. Heart: No abnormality noted. Mediastinum: Small sliding hiatal hernia noted. ABDOMEN: Liver: Lack of intravenous contrast limits detection of some masses. No abnormality noted. Gallbladder and bile ducts: Mild sludge in the gallbladder. No calcified stones. No ductal dilatation. Pancreas: No pancreatic mass, calcification, inflammation or ductal dilation noted. Spleen: No significant abnormality noted. Adrenals: No significant abnormality noted. Kidneys and ureters: There is a heterogeneous mass occupying the lower pole of the left kidney measuring 5.0 x 5.3 x 5.2 cm. There is either a second mass or a contiguous component in the left renal pelvis measuring 2.6 x 3.6 x 2.4 cm. There is mild right hydronephrosis and dilatation of the proximal ureter to a 7 x 11 mm stone just distal to the right UPJ. There are 1 or 2 punctate stones within the right kidney. There are 2 stones within the left kidney the larger measuring approximately 6 mm. No urinary gas. Stomach and bowel: Colonic diverticulosis without diverticulitis. No intestinal thickening or obstruction. PELVIS: Appendix: No findings to suggest acute appendicitis. Bladder: Appears normal for the degree of filling. No stones or inflammation. No large mass. Masses may not be detected in the absence of opacification. Reproductive: No abnormalities noted. ABDOMEN and PELVIS: Intraperitoneal space: No free air. No significant fluid collection. Bones/joints: Mild facet arthrosis and lumbar spondylosis. No acute osseous abnormality. Soft tissues: There are small bilateral fat containing inguinal hernias. Vasculature: Atherosclerotic calcification of the aorta and branches. No aneurysm. Lymph nodes: No pathologically enlarged lymph nodes. IMPRESSION: 1. 7 x 11 mm stone just distal to the right UPJ with mild hydronephrosis. 2. 1 and possibly 2 masses in the left kidney consistent with renal cell carcinoma. 3. Bilateral nonobstructing intrarenal stones. 4. Biliary sludge. ACT 112: Negative or not required by law. Electronically signed by Tara Yusuf 04-19-2024 5:21 PM Renal Ultrasound 04/19/24 20:34 Exam(s): US RENAL EXAM: US Retroperitoneal Limited, Renal CLINICAL HISTORY: Reason for exam: left renal lesions on CT. TECHNIQUE: Real-time limited ultrasound of the retroperitoneum with image documentation. COMPARISON: No relevant prior studies available. FINDINGS: Right kidney: The right renal length is 12.3 cm. There is moderate right-sided hydronephrosis. The proximal right ureter is prominent and measures up to 1.4 cm. No stones. Left kidney: There is a 5.1 x 4.5 x 4.7 cm complex mass associated with the lower pole of the left kidney. There is an additional 2.8 x 3.3 cm echogenic mass associated with the lower left renal pelvis.. Dedicated follow-up CT or MRI without and with contrast with renal mass protocol recommended. The left renal length is 12.5 cm. No left-sided hydronephrosis is noted. There is a questionable 5 mm lower pole left renal stone. IMPRESSION: 1. Moderate right-sided hydronephrosis and hydroureter. Please see separate CT abdomen and pelvis without contrast report.. 2. Complex left renal mass associated with the lower pole of the kidney and separate 2.8 x 3.3 cm solid mass associated with the renal pelvis.. Dedicated follow-up CT or MRI without and with contrast with renal mass protocol recommended. 3. Probable small fiber liquor lower pole left renal calculus. Electronically signed by: Favio Castaneda MD 04/19/24 23:49 PM Retrograde Pyelogram 04/20/24 00:00 FL retrograde includes kub CLINICAL HISTORY: RIGHT STENTright-sided cystourethrogram COMPARISON STUDY: CT 04/19/2024 FLUOROSCOPY TIME: 4.9 seconds FLUOROSCOPY IMAGES: 3 EXPOSURE DOSE: 0.4412 mGy FINDINGS: A right ureteral stent appears to be in satisfactory positioning, the distal portion however was not imaged. Contrast opacified right ureter demonstrates persistent dilation. IMPRESSION: Fluoroscopic assistance as above. ACT 112: Negative or not required by law. Electronically signed by: Shaun Manuel M.D. 04/20/2024 12:25 PM Abdomen MRI 04/21/24 00:05 EXAM: MR abdomen wo/w con CLINICAL HISTORY: left renal mass seen on CT. right side flank pain into right lower abdomen. right upj stone. patient haD a stent placed today. uti. CT abd/pelvis 04/19 ultrasound 04/19/24. injected 7cc gadavist through existing iv left arm uneventful at 0032. room 283-2 images 1430 TECHNIQUE: Multiplanar/multisequence MRI of the abdomen was performed with and without the use of gadolinium. COMPARISON: CT scan dated 19 april 2024. FINDINGS: The liver is of normal signal intensity without evidence of a hepatic mass. No evidence of intrahepatic biliary ductal dilatation. The gallbladder is unremarkable. Limited evaluation of the bowel secondary to peristalsis, however, demonstrates no definitive abnormality. The adrenal glands demonstrate no gross mass. The pancreas is unremarkable. 4.5 x 5.1 x 7 cm (AP x TR x CC) relatively well defined, partially exophytic, heterogeneously enhancing solid cystic lesion, is noted involving lower pole and interpolar region of the left kidney with extension into the renal sinus. No macroscopic fat is noted within it. No calcifications are noted on the CT scan study. Extension into the renal pelvis is noted. Multiple cystic/necrotic areas are noted within it. Mild perinephric fat stranding is noted. Extension into the renal pelvis is noted. Posteriorly it is abutting the abdominal wall with no intervening fat planes. However, no obvious signs of infiltration. Solid component shows restricted diffusion on DW images. No obvious evidence of main renal vein thrombosis is noted. Inferior vena cava shows normal opacification. No enlarged retroperitoneal lymph nodes are noted. No abnormal enhancement/enhancing mass lesion seen in rest of the solid organs. No evidence of upper abdominal ascites or mesenteric mass. IMPRESSION: 1. 4.5 x 5.1 x 7 cm (AP x TR x CC) relatively well defined, partially exophytic, heterogeneously enhancing, solid cystic lesion, is noted involving lower pole and interpolar region of the left kidney as described above. Possibility of neoplastic etiology. Suggested histopathological correlation. 2. Main renal vein, inferior vena cava show normal opacification. No enlarged retroperitoneal lymph nodes are noted. 3. No enhancing lesion involving rest of the solid organs noted. 4. Obstructive uropathy changes on the right side have significantly reduced in the current study as compared to the previous. Electronically signed by Jasper Gutierrez 04-21-2024 02:01 AM Laboratory Results - last 48 hr 04/20/24 04/20/24 04/21/24 17:18 20:07 07:53 WBC RBC Hgb Hct MCV MCH MCHC RDW Std Deviation RDW Coeff of Richard Plt Count MPV Immature Gran % (Auto) Neut % (Auto) Lymph % (Auto) Spencer % (Auto) Eos % (Auto) Baso % (Auto) Neut # (Auto) Lymph # (Auto) Spencer # (Auto) Eos # (Auto) Baso # (Auto) Immature Gran # (Auto) Sodium Potassium Chloride Carbon Dioxide Anion Gap BUN Creatinine Est Cr Clr Drug Dosing eGFR BUN/Creatinine Ratio Glucose POC Glucose 242 H 205 H 127 H Calcium Magnesium Total Bilirubin AST ALT Alkaline Phosphatase Total Protein Albumin Globulin Albumin/Globulin Ratio 04/21/24 04/21/24 04/21/24 08:45 12:20 12:58 WBC 10.73 11.59 H RBC 3.74 L 3.53 L Hgb 11.6 L 11.4 L Hct 34.4 L 32.6 L MCV 92.0 92.4 MCH 31.0 32.3 MCHC 33.7 35.0 RDW Std Deviation 43.4 43.5 RDW Coeff of Richard 12.9 12.9 Plt Count 257 247 MPV 9.5 9.6 Immature Gran % (Auto) 0.6 Neut % (Auto) 78.5 Lymph % (Auto) 11.8 Spencer % (Auto) 8.5 Eos % (Auto) 0.4 Baso % (Auto) 0.2 Neut # (Auto) 8.43 H Lymph # (Auto) 1.27 Spencer # (Auto) 0.91 H Eos # (Auto) 0.04 Baso # (Auto) 0.02 Immature Gran # (Auto) 0.06 Sodium 137 137 Potassium 3.8 3.7 Chloride 102 102 Carbon Dioxide 27 28 Anion Gap 8 7 BUN 16 15 Creatinine 0.54 L 0.56 L Est Cr Clr Drug Dosing 94.8 91.4 eGFR 98.98 98.12 BUN/Creatinine Ratio 29.6 H 26.8 H Glucose 132 H 155 H POC Glucose 122 H Calcium 9.0 8.7 Magnesium 1.9 1.9 Total Bilirubin 0.5 D AST 10 L ALT 6 L Alkaline Phosphatase 42 Total Protein 6.2 Albumin 3.4 Globulin 2.8 Albumin/Globulin Ratio 1.2 04/21/24 04/21/24 04/22/24 17:06 20:58 05:34 WBC 7.47 RBC 3.72 L Hgb 11.5 L Hct 34.7 L MCV 93.3 MCH 30.9 MCHC 33.1 RDW Std Deviation 44.2 RDW Coeff of Richard 13.0 Plt Count 268 MPV 9.5 Immature Gran % (Auto) 0.4 Neut % (Auto) 50.1 Lymph % (Auto) 34.3 Spencer % (Auto) 10.0 Eos % (Auto) 4.7 Baso % (Auto) 0.5 Neut # (Auto) 3.74 Lymph # (Auto) 2.56 Spencer # (Auto) 0.75 H Eos # (Auto) 0.35 Baso # (Auto) 0.04 Immature Gran # (Auto) 0.03 Sodium 140 Potassium 4.0 Chloride 104 Carbon Dioxide 31 Anion Gap 5 BUN 15 Creatinine 0.63 Est Cr Clr Drug Dosing 81.3 eGFR 95.37 BUN/Creatinine Ratio 23.8 H Glucose 113 H POC Glucose 152 H 156 H Calcium 8.6 Magnesium 1.9 Total Bilirubin AST ALT Alkaline Phosphatase Total Protein Albumin Globulin Albumin/Globulin Ratio 04/22/24 04/22/24 08:10 11:53 WBC RBC Hgb Hct MCV MCH MCHC RDW Std Deviation RDW Coeff of Richard Plt Count MPV Immature Gran % (Auto) Neut % (Auto) Lymph % (Auto) Spencer % (Auto) Eos % (Auto) Baso % (Auto) Neut # (Auto) Lymph # (Auto) Spencer # (Auto) Eos # (Auto) Baso # (Auto) Immature Gran # (Auto) Sodium Potassium Chloride Carbon Dioxide Anion Gap BUN Creatinine Est Cr Clr Drug Dosing eGFR BUN/Creatinine Ratio Glucose POC Glucose 102 H 118 H Calcium Magnesium Total Bilirubin AST ALT Alkaline Phosphatase Total Protein Albumin Globulin Albumin/Globulin Ratio Pending Results Patient Have Any Pending Studies at Discharge: No Discharge Instructions Given to Patient (Per Discharging Provider) DISCHARGE INSTRUCTION TO PATIENT/FAMILY: Follow-up with your primary care provider within 1 week regarding: Posthospital discharge, medication review, medication refills and follow-up on all your medical problems, blood pressure monitoring Please take all your discharge medications, discharge information and discharge instructions to all your doctors appointments. Avoid all NSAIDs including ibuprofen, Motrin, Advil, Aleve, naproxen, meloxicam, Toradol, diclofenac Lisinopril dose has been reduced from 20 mg daily to 10 mg daily because your blood pressure has been on the low side. Please follow-up with your PCP within 1 week to monitor your blood pressure and review lisinopril dosing. Please have your PCP check your blood pressure lying, sitting and standing You have been prescribed levofloxacin 500 mg daily for E. coli urinary tract infection secondary to infected stone. Start your medication on 04/23/2024. Avoid strenuous activities/Shon classes while taking levofloxacin for at least a week as levofloxacin can cause tendinitis and tendon rupture Follow-up with urologist Dr. Mancera in 1 to 2 weeks time for definitive treatment of kidney stones and also for follow-up plan regarding left renal mass Labs through PCP in 1 week: CBC, CMP, MG Total Time Total Time Spent Total Time Spent (In Minutes): 40 minutes Coding Level of Care Code 73311 INP/OBS DISCH >30 MIN Diagnoses Hydronephrosis of right kidney N13.30 Calculus of proximal right ureter N20.1 Left renal mass N28.89 Controlled type 2 diabetes mellitus without complication, unspecified whether alf insulin use E11.9 Diabetes mellitus alf insulin use: unspecified alf insulin use status Diabetes mellitus complication status: without complication Moderate obstructive sleep apnea G47.33 Hypercholesteremia E78.00 HTN (hypertension) I10 Acquired hypothyroidism E03.9 Hypothyroidism type: acquired
[2024-04-22 13:37] VITALS: BP 104/58
--- NOTE | 2024-04-23 06:57 | Electrocardiogram Report ---
Test Reason : Blood Pressure : */* mmHG Vent. Rate : 79 BPM Atrial Rate : 79 BPM P-R Int : 126 ms QRS Dur : 88 ms QT Int : 376 ms P-R-T Axes : 66 29 78 degrees QTcB Int : 431 ms Normal sinus rhythm Normal ECG When compared with ECG of 06-Sep-2017 13:16, No significant change was found Confirmed by Pablito Flores ([id number]) on 04/23/2024 6:56:59 AM Referred By: REFERRED SELF Confirmed By: Pablito Flores
== END 2024-04-22 15:17 | disposition home or self-care (01) | DRG 661 ==
LOC: ED 15:38 → 2N 20:40 → SUATTDRO 20:40 → 2N 22:20

== ENCOUNTER 2024-06-08 06:00 | Inpatient (IN) ==
--- NOTE | 2024-05-30 10:29 | Anesthesiology Consultation ---
Date of Service May 30, 2024 Assessment & Plan (1) Encounter for pre-operative examination: Chart Review Chart Review: Acceptable Risk for Surgery and Patient NOT seen in Pre Admission Testing -Pt had cysto, b/l ureteronephroscopy, litho, stent [facility] on 05/04/24: GA: LMA#4 iGel Infectious Disease screening: Per PAT nursing assessment on 05/30/24, No known infectious disease contacts in past 10 days or current infectious disease symptoms. No recent travel outside the country. History Surgery Operation Date: 06/08/24 07:30 Proposed Procedures p Robotic Radical Nephrectomy - Left - Naif Mancera MD Height/Weight Height: 5 ft 5.5 in Weight: 67.585 kg Allergies Allergy/AdvReac Type Severity Reaction Status Date / Time shellfish derived Allergy Severe ANAPHYLAXIS Verified 05/30/24 08:33 (SEAFOOD) celecoxib [From Celebrex] Allergy Intermediate rash and Verified 05/30/24 08:33 itching nitrofurantoin Allergy Intermediate rash and Verified 05/30/24 08:33 [From Macrodantin] itching Sulfa (Sulfonamide Allergy Intermediate rash and Verified 05/30/24 08:33 Antibiotics) itching melon Allergy Mild Chills Verified 05/30/24 08:33 valdecoxib [From Bextra] Allergy Mild rash Verified 05/30/24 08:33 Medications Home Medications Medication Instructions Recorded Confirmed Last Taken clopidogrel 75 mg tablet 75 mg PO QAM 03/12/19 05/30/24 04/28/24 cholecalciferol (vitamin D3) 125 5,000 unit PO QAM 09/17/22 05/30/24 04/28/24 mcg (5,000 unit) capsule OneTouch Verio test strips (blood #400 ea 11/02/22 04/26/24 Unknown sugar diagnostic) lancets 33 gauge (OneTouch Delica 11/19/22 04/26/24 Unknown Lancets) mecobalamin (vitamin B12) 1,000 1,000 mcg PO DAILY 11/19/22 05/30/24 04/28/24 mcg chewable tablet levothyroxine 112 mcg tablet 112 mcg PO 5XWK #60 tabs 08/17/23 05/30/24 05/04/24 06:00 (Synthroid) pen needle, diabetic 33 gauge x #100 ea 08/17/23 04/26/24 Unknown 05/13" rosuvastatin 10 mg tablet 10 mg PO HS 10/07/23 05/30/24 05/03/24 18:00 Dexcom G7 Sensor (blood-glucose #3 ea 03/13/24 04/26/24 Unknown sensor) calcium 600 mg (as 1 tab PO DAILY 04/19/24 05/30/24 04/28/24 carbonate)-vitamin D3 10 mcg (400 unit) tablet (Calcium 600 + D(3)) coenzyme Q10 200 mg capsule (Co 200 mg PO HS 04/19/24 05/30/24 04/28/24 Q-10) cyclobenzaprine 10 mg tablet 10 mg PO HS PRN Muscle Spasm 04/19/24 05/30/24 05/01/24 insulin glargine 100 unit/mL (3 16 unit subcut HS 04/19/24 05/30/24 05/03/24 22:00 mL) subcutaneous pen (Lantus 18 units Solostar U-100 Insulin) metformin 500 mg tablet,extended 1,000 mg PO BID 04/19/24 05/30/24 05/03/24 18:00 release 24 hr turmeric 400 mg capsule 400 mg PO QDL 04/19/24 05/30/24 04/28/24 amoxicillin 500 mg-potassium 1 tab PO Q12H #14 tabs 05/25/24 05/30/24 Unknown clavulanate 125 mg tablet (Augmentin) ascorbic acid (vitamin C) 1,000 mg 1 g PO QAM 05/30/24 05/30/24 Unknown tablet (Vitamin C) escitalopram oxalate 5 mg tablet 5 mg PO HS 05/30/24 05/30/24 Unknown (Lexapro) lisinopril 40 mg tablet 40 mg PO QAM 05/30/24 05/30/24 Unknown zinc 100 mg tablet 100 mg PO QAM 05/30/24 05/30/24 Unknown Past Medical History Medical History (Updated 05/30/24 @ 10:46 by Kyra Norwood PA-C) Complex sleep apnea syndrome cpap Diabetes type 2, controlled History of postoperative nausea and vomiting History of TIAs (2009) reason for plavix, saw neuro at [facility] and had a normal EEG; neuro felt pt. was having migraines that were mimicking TIAs - continues on plavix but no longer sees neuro- no issues/deficits and no longer gets migraines HTN (hypertension) Hx of colonic polyp Hx of migraines Hx: UTI (urinary tract infection) pt has had multiple recently--per pt reason for current antibiotic Hydronephrosis of right kidney Hypercholesteremia Hypothyroidism Kidney stones Left renal mass On anticoagulant therapy plavix daily Rotator cuff tear right side, no current pain Past Family History Family History Mother Diabetes Fatty liver Hemochromatosis Hypothyroidism Hypertension Colonic polyp Family history of reaction to anesthesia nausea/vomiting Father Colon cancer Diabetes Myocardial infarction Brother Diabetes Sister Hemochromatosis Family/Other Obstructive sleep apnea Past Surgical History Surgical History (Updated 05/30/24 @ 10:46 by Kyra Norwood PA-C) History of bladder surgery sling History of endometrial ablation History of foot surgery right foot History of tonsillectomy and adenoidectomy Hx of colonoscopy with polypectomy Hx of laparoscopy (1988) "infertility surgery" - took endometrial tissue out Hx of right knee surgery (2007) right meniscus repair S/P cystoscopy with ureteral stent placement cysto, b/l ureteronephroscopy, litho, stent 05/04/24: GA: LMA#4 iGel Social History Smoking Status: Never smoker Do You Dip or Chew Tobacco: No Hx Alcohol Use: Yes alcohol intake frequency: holidays/special occasions only Hx Substance Use: No substance use type: does not use Lab Results Anesthesia Preop Results Results Anesthesia Widget: WBC 6.17 K/ul (4.8-10.8) 05/23/24 Hgb 13.0 g/dl (12.0-16.0) 05/23/24 Hct 39.7 % (37.0-47.0) 05/23/24 Plt 303 K/uL (130-400) 05/23/24 Na 141 mmol/L (136-145) 05/23/24 K 4.1 mmol/L (3.5-5.1) 05/23/24 Cl 105 mmol/L (98-107) 05/23/24 CO2 30 mmol/L (21-32) 05/23/24 BUN 11 mg/dl (6-23) 05/23/24 Creat 0.62 mg/dl (0.6-1.2) 05/23/24 Glucose Level 114 mg/dl (70-99(Fasting)) H 05/23/24 POC Glucose 123 mg/dl (70-99) H 05/04/24 Urine Color Yellow 04/19/24 Urine Appearance Cloudy (Clear) A 04/19/24 Urine pH 5.5 (4.5-7.5) 04/19/24 Urine Specific [place] 1.012 (1.000-1.030) 04/19/24 Urine Protein 1+ (Negative) H 04/19/24 Urine Glucose (UA) Negative (Negative) 04/19/24 Urine Ketones 1+ (Negative) H 04/19/24 Urine Blood 2+ (Negative) H 04/19/24 Urine Nitrite Positive (Negative) A 04/19/24 Urine Bilirubin Negative (Negative) 04/19/24 Urine Urobilinogen Negative (Negative) 04/19/24 Urine Leukocyte Esterase 3+ (Negative) H 04/19/24 Urine WBC (Auto) >50 /hpf (0-5) H 04/19/24 Urine RBC (Auto) 6-10 /hpf (0-2) H 04/19/24 Urine Hyaline Casts (Auto) 3-5 /lpf (0-2) H 04/19/24 Urine Epithelial Cells (Auto) 0-2 /hpf (0-2) 04/19/24 Urine Bacteria (Auto) 4+ (None Seen) H 04/19/24 Testing Laboratory Results 05/24/24: urine culture: +e.coli (pt currently on augmentin per surgeon) Electrocardiogram Date: 04/21/24 Findings: + NSR @ (79bpm) Other Testing Chest CT 04/27/24: 1. Partially imaged enhancing left renal mass redemonstrated, better seen on the comparison MRI of the abdomen. 2. No pathologically enlarged lymph nodes or evidence of intrathoracic metastasis. 3. Emphysema with a few low suspicion tiny solid nodules within the superior segment of the left lower lobe measuring up to 3 mm which are new compared to the study from 2008. Abdomen MRI 04/21/24 1. 4.5 x 5.1 x 7 cm (AP x TR x CC) relatively well defined, partially exophytic, heterogeneously enhancing, solid cystic lesion, is noted involving lower pole and interpolar region of the left kidney as described above. Possibility of neoplastic etiology. Suggested histopathological correlation. 2. Main renal vein, inferior vena cava show normal opacification. No enlarged retroperitoneal lymph nodes are noted. 3. No enhancing lesion involving rest of the solid organs noted. 4. Obstructive uropathy changes on the right side have significantly reduced in the current study as compared to the previous. Abdomen pelvis CT 04/19/24 1. 7 x 11 mm stone just distal to the right UPJ with mild hydronephrosis. 2. 1 and possibly 2 masses in the left kidney consistent with renal cell carcinoma. 3. Bilateral nonobstructing intrarenal stones. 4. Biliary sludge.
[2024-06-08] MEDS: LR 15ML/HR IV SCH (06:36)
[2024-06-08] MEDS ORDERED: DEXAMETHASONE SOD INJ 4 MG/ML VIAL ONE (07:07)
[2024-06-08] MEDS ORDERED: MIDAZOLAM HCL 1 MG/ML 2ML VIAL ONE (07:07)
[2024-06-08] MEDS ORDERED: PROPOFOL IV EMULSION 10 MG/ML 20 ML VIAL IV ONE (07:07)
[2024-06-08] MEDS ORDERED: fentaNYL citrate PF 100 MCG/2 ML VIAL ONE ×2 (07:07→08:14)
[2024-06-08] MEDS ORDERED: ONDANSETRON INJ 2 MG/ML 2 ML VIAL ONE (07:07)
[2024-06-08] MEDS ORDERED: ROCURONIUM BROMIDE 10 MG/ML 5 ML VIAL IV ONE ×2 (07:07→08:46)
[2024-06-08] MEDS ORDERED: LIDOCAINE 2% 2 ML VIAL/AMP(20MG/ML) INFIL ONE (07:08)
[2024-06-08] MEDS ORDERED: ONDANSETRON INJ 2 MG/ML 2 ML VIAL IV PRN ×2 (07:13→12:32)
[2024-06-08] MEDS ORDERED: ePHEDrine sulfate 50 MG/ML AMP IV PRN (07:13)
[2024-06-08] MEDS ORDERED: ATROPINE SULFATE 0.1 MG/ML 10ML SYR IV PRN (07:13)
[2024-06-08] MEDS ORDERED: HYDROmorphone INJ 2 MG/ML SYR/VIAL IV PRN (07:13)
[2024-06-08] MEDS ORDERED: PROMETHAZINE HCL 6.25 MG in SODIUM CHLORIDE 0.9% 50 ML IV PRN (07:13)
--- NOTE | 2024-06-08 07:13 | History & Physical Report ---
Date of Service June 08, 2024 Assessment & Plan (1) Left renal mass: Plan: We reviewed the plan for robot-assisted laparoscopic radical left nephrectomy. We reviewed risks and benefits of surgery. She expressed understanding and would like to proceed with surgery. History of Present Illness Primary Care Provider: Usman Amorleary This is a 68-year-old female followed by urology for left renal mass suspected to be malignancy. She presents to the OR for robot-assisted radical left nephrectomy Allergies Allergy/AdvReac Type Severity Reaction Status Date / Time shellfish derived Allergy Severe ANAPHYLAXIS Verified 06/08/24 06:31 (SEAFOOD) celecoxib [From Celebrex] Allergy Intermediate rash and Verified 06/08/24 06:31 itching nitrofurantoin Allergy Intermediate rash and Verified 06/08/24 06:31 [From Macrodantin] itching Sulfa (Sulfonamide Allergy Intermediate rash and Verified 06/08/24 06:31 Antibiotics) itching melon Allergy Mild Chills Verified 06/08/24 06:31 valdecoxib [From Bextra] Allergy Mild rash Verified 06/08/24 06:31 Home Medications Medication Instructions Recorded Confirmed Type clopidogrel 75 mg tablet 75 mg PO QAM 03/12/19 06/08/24 History cholecalciferol (vitamin D3) 125 5,000 unit PO QAM 09/17/22 06/08/24 History mcg (5,000 unit) capsule OneTouch Verio test strips (blood #400 ea 11/02/22 06/08/24 Rx sugar diagnostic) lancets 33 gauge (OneTouch Delica 11/19/22 06/08/24 History Lancets) mecobalamin (vitamin B12) 1,000 1,000 mcg PO DAILY 11/19/22 06/08/24 History mcg chewable tablet levothyroxine 112 mcg tablet 112 mcg PO 5XWK #60 tabs 08/17/23 06/08/24 Rx (Synthroid) pen needle, diabetic 33 gauge x #100 ea 08/17/23 06/08/24 Rx 1/4" rosuvastatin 10 mg tablet 10 mg PO HS 10/07/23 06/08/24 History Dexcom G7 Sensor (blood-glucose #3 ea 03/13/24 06/08/24 Rx sensor) calcium 600 mg (as 1 tab PO DAILY 04/19/24 06/08/24 History carbonate)-vitamin D3 10 mcg (400 unit) tablet (Calcium 600 + D(3)) coenzyme Q10 200 mg capsule (Co 200 mg PO HS 04/19/24 06/08/24 History Q-10) cyclobenzaprine 10 mg tablet 10 mg PO HS PRN Muscle Spasm 04/19/24 06/08/24 History insulin glargine 100 unit/mL (3 16 unit subcut HS 04/19/24 06/08/24 History mL) subcutaneous pen (Lantus Solostar U-100 Insulin) metformin 500 mg tablet,extended 1,000 mg PO BID 04/19/24 06/08/24 History release 24 hr turmeric 400 mg capsule 400 mg PO QDL 04/19/24 06/08/24 History amoxicillin 500 mg-potassium 1 tab PO Q12H #14 tabs 05/25/24 06/08/24 Rx clavulanate 125 mg tablet (Augmentin) ascorbic acid (vitamin C) 1,000 mg 1 g PO QAM 05/30/24 06/08/24 History tablet (Vitamin C) escitalopram oxalate 5 mg tablet 5 mg PO HS 05/30/24 06/08/24 History (Lexapro) zinc 100 mg tablet 100 mg PO QAM 05/30/24 06/08/24 History lisinopril 40 mg tablet 40 mg PO QAM #90 tabs 06/07/24 06/08/24 Rx Past Med/Surg History Problem List Vitamin D deficiency Kidney stones NSAID sensitivity Left renal mass Hydronephrosis of right kidney Rotator cuff tear, right Overweight (BMI 25.0-29.9) Diabetes type 2, controlled (Chronic) Nocturnal hypoxemia Complex sleep apnea syndrome Moderate obstructive sleep apnea (Chronic) Hypercholesteremia (Chronic) Hypothyroidism (Chronic) HTN (hypertension) (Chronic) Medical History On anticoagulant therapy Left renal mass Diabetes type 2, controlled History of postoperative nausea and vomiting Hx of migraines History of TIAs (2009) Hx: UTI (urinary tract infection) Hypothyroidism Hypercholesteremia Hydronephrosis of right kidney Rotator cuff tear Complex sleep apnea syndrome Hx of colonic polyp HTN (hypertension) Surgical History Hx of laparoscopy (1988) Hx of right knee surgery (2007) Hx of colonoscopy with polypectomy S/P cystoscopy with ureteral stent placement History of endometrial ablation History of tonsillectomy and adenoidectomy History of foot surgery History of bladder surgery Family History Mother Diabetes Fatty liver Hemochromatosis Hypothyroidism Hypertension Colonic polyp Family history of reaction to anesthesia Father Colon cancer Diabetes Myocardial infarction Brother Diabetes Sister Hemochromatosis Family/Other Obstructive sleep apnea Social History Smoking Status: Never smoker Second Hand Exposure: No; Do You Dip or Chew Tobacco: No; Tobacco Cessation Education Requested by Patient: No Hx Alcohol Use: Yes Hx Substance Use: No Preferred Language: Marshallese Communication Ability: Effective Auditor In Charge Required: No Beliefs That Will Affect Care: None marital status: Current Living Situation: Spouse current occupational status: retired Feels Safe at Home: Yes Safety Concerns: Feels Safe At This Time Assistive Devices: Contacts and CPAP Review of Systems 12 point review of systems negative except for otherwise indicated. Physical Exam Constitutional: well developed and well nourished; no acute distress Eyes: + anicteric sclerae; pupils not irregula r Respiratory: normal respiratory effort; no respiratory distress, does not use accessory muscles and no cough Cardiovascular: well perfused Gastrointestinal (Abdomen): Inspection/Auscultation: abdomen normal to inspection; abdomen not distended Musculoskeletal: Extremities: extremities normal to inspection Skin: normal turgor; no rashes and no lesions Neurologic: moves all extremities and awake Psychiatric: Orientation: alert and oriented x 3 Results & Data Vital Signs (Past 12 Hours) Vital Signs Temp Pulse Resp BP Pulse Ox O2 Del Method 06/08/24 06:15 36.8 C 85 18 165/86 H 98 Room Air
[2024-06-08] MEDS ORDERED: PHENYLEPHRINE HCL 10 MG/ML VIAL ONE (08:00)
[2024-06-08] MEDS: ceFAZolin 2000MG 2,000 MG/15 ML SYR IV SCH ×2 (08:00→16:36)
[2024-06-08] MEDS ORDERED: ePHEDrine sulfate 50 MG/5 ML SYR ONE (08:12)
[2024-06-08] MEDS ORDERED: ACETAMINOPHEN 1000 MG/100 ML IV IV ONE (10:17)
[2024-06-08] MEDS ORDERED: SUGAMMADEX SODIUM 200 MG/2 ML VIAL IV ONE (10:28)
[2024-06-08] MEDS: BUPIVACAINE 0.5 % 5 MG/1 ML MPF 30ML VIAL ONE (10:43)
[2024-06-08] MEDS: fentaNYL citrate PF 100 MCG/2 ML VIAL IV PRN (11:23)
--- NOTE | 2024-06-08 11:25 | Operative Report ---
PG Post Operative Report Pre & Post Diagnosis Operation Date: 06/08/24 07:30 Pre-Op Diagnosis: Left renal mass, suspicious for malignancy Post-Op Diagnosis: Left renal mass, suspicious for malignancy I identified the patient and participated in the time-out.: Yes Procedure Operation Date: 06/08/24 07:30 Actual Procedures p Robotic Radical Nephrectomy - Left(Left) - Naif Mancera MD Surgeon Naif Mancera MD Trouble Lineman RACHAEL Knight Estimated Blood Loss 10 Findings Consistent with Post-Op Diagnosis Specimens Left kidney Drains Palm catheter per urethra Anesthesia Type General Complications none Disposition Accompanied Patient To Recovery: Yes Disposition: Recovery Room Indications This is a 68-year-old female followed by urology for left renal mass that is concerning for malignancy. She presents to the OR for robot-assisted left radical nephrectomy. Description of Procedure The patient was identified and informed consent was obtained. She was marked on the left side and was brought to the operating room where general anesthesia was initiated. She was placed in a flank position with the left side elevated. All pressure points were carefully padded. A timeout was then performed. A surgical marker was used to draw a line approximately 7 cm to the left of the umbilicus, in the mid clavicular area. Anticipated port sites were marked starting approximately 2 fingerbreadths below the costal margin. Subsequent ports were anticipated to be 6 to 7 cm spaced down this line. An incision was made at the second anticipated site, then dissection was carried down to the fascia. A Veress needle was used to obtain access to the peritoneum. Good position was confirmed with a negative aspiration, appropriate drop test and low opening insufflation pressure. The abdomen was then inflated with CO2 to 15 mmHg. The first robotic port was then placed and the camera was inserted. The abdominal cavity was surveyed. No injury to intra-abdominal contents was appreciated. The remaining 3 robotic ports were placed under direct visualization. A 12 mm trust operations assistant port was then placed in the midline above the umbilicus. The robot was then docked. I reflected the colon along the white line of Toldt to expose Gerota's fascia. Once the colon was sufficiently reflected, the gonadal vessels and left ureter were identified. These were then dissected cephalad to identify the renal hilum. She had 1 renal artery and 1 renal vein. Adequate windows were dissected to expose each vessel. The robotic stapler was then introduced. With vascular staple loads, the renal artery was first divided, followed by the renal vein. There was good hemostasis. I began dissecting up over the upper pole of the kidney. An additional staple load was used to divide some of these tissues. It appeared the adrenal gland was spared. The lateral aspect of the kidney was freed up as well as the posterior. Both of these areas had some "sticky" fat, potentially as a reaction to her mass. Once the kidney was completely freed up, excellent hemostasis was confirmed. Surgicel was applied to the hilum and the upper pole beds. The robot was undocked. The left lower quadrant incision was then extended laterally. The kidney was extracted through this port. Kidney was sent for pathologic analysis labeled as "left kidney". The incisions were then closed. The extraction site was closed using a running 2-0 Vicryl suture to close the peritoneum, followed by 0 Vicryl suture in the internal oblique fascia. The external bleak fascia was closed with interrupted [id number] 0 Vicryl sutures. All wounds were anesthetized using 0.5% Marcaine. The subcutaneous tissue of the extraction site was reapproximated using running 3-0 Vicryl suture. Skin was closed with a running subcuticular 4- 0 Monocryl. Port sites were closed using buried interrupted 4-0 Monocryl's. A layer of [place] was applied to all incisions. The patient was then awakened from anesthesia and brought to the PACU in stable condition. All sponge and instrument counts were correct at the end of the case. Of note, Misty CANO, acted as bedside trust operations assistant for the majority of the case, helping with initial positioning, access, retraction, dissection and with closing. I attest to the content of the Intraoperative Record and any orders documented therein. Any exceptions are noted below.
--- NOTE | 2024-06-08 12:16 | Anesthesiology Progress Note ---
Date of Service June 08, 2024 Anesthesia Post Procedure Vital Signs Vital Signs: Temp Pulse Pulse Resp BP Pulse Ox O2 Del Method 06/08/24 12:00 36.8 C 79 15 158/74 H 94 Room Air 06/08/24 11:50 36.8 C 84 18 157/94 H 94 Room Air 06/08/24 11:40 85 15 162/82 H 96 Oxymask 06/08/24 11:30 79 14 167/84 H 100 Oxymask 06/08/24 11:20 83 19 160/97 H 99 Oxymask 06/08/24 11:14 36.4 C L 89 20 165/84 H 99 Oxymask 06/08/24 06:15 36.8 C 85 18 165/86 H 98 Room Air O2 Flow Rate 06/08/24 12:00 06/08/24 11:50 06/08/24 11:40 4 06/08/24 11:30 4 06/08/24 11:20 8 06/08/24 11:14 8 06/08/24 06:15 Pain Intensity Abdomen: Pain Intensity: 5 Transfer of Care Handoff Completed per policy Notes Mental Status: alert / awake / arousable and participated in evaluation Patient Amnestic to Procedure: Yes Nausea / Vomiting: adequately controlled Pain: adequately controlled Airway Patency, RR, SpO2: stable & adequate BP & HR: stable & adequate Hydration State: stable & adequate Anesthetic Complications: no major complications apparent
[2024-06-08] MEDS ORDERED: oxyCODONE HCL IR 5 MG TAB (IMMEDIATE RELEASE) PO PRN (12:32)
[2024-06-08] MEDS ORDERED: HYDROmorphone INJ 0.5 MG/0.5 ML SYR IV PRN (12:32)
[2024-06-08] MEDS ORDERED: PHARMACY GLYCEMIC MGMT CONSULT PRN (12:32)
[2024-06-08] MEDS: SODIUM CHLORIDE 0.9% 1,000 ML IV SCH (12:58)
[2024-06-08] MEDS: ACETAMINOPHEN 325 MG TAB PO SCH (12:58)
[2024-06-08] MEDS: HYDROmorphone INJ 0.5 MG/0.5 ML SYR IV PRN (12:58)
--- NOTE | 2024-06-08 13:14 | Pharmacy Report ---
Pharmacy Glycemic Short Note 2 - Date of Service June 08, 2024 - Glycemic Short BSG Results (Last 24 hours): 06/08/24 06/08/24 06:25 11:13 POC Glucose 110 H 192 H OUTPATIENT ANTIDIABETIC REGIMEN: * Lantus 16 units SC qHS * Metformin ER 1000 mg PO BID * A1c = 6.7% ASSESSMENT: * Marshall is a 68 yo T2DM s/p L nephrectomy. * She is well controlled as an outpatient on basal insulin + metformin. Based on limited past admission data (Apr 2024) patient did well with Lantus 10-12 units daily. Of note, she was NPO for a portion of that time. * It does appear that patient received a one time dose of dexamethasone 8 mg IV sandy-op. Suspect short term hyperglycemia secondary to steroid. * Will scale Lantus order. Patient will received full home dose for BSG of 180 mg/dL or more. For BSG less than this, will reduce Lantus dose by ~20%. * Utilize Novolog CR/CF based on weight + stress 2-3. PLAN FOR INPATIENT GLYCEMIC CONTROL: * Hold outpatient oral diabetes medications * Basal insulin * Lantus 13-16 units SQ HS * Bolus insulin * NovoLog per scale ACHS or Q6hrs while NPO * Goal Range: Low 110 mg/dL - High 140 mg/dL * Correction Factor: 25 mg/dL/unit * Nutritional / Prandial insulin per carb ratio of 1 unit per 9 grams CHO consumed
[2024-06-08] MEDS ORDERED: DEXTROSE 50% 50 ML SYRINGE IV PRN (13:15)
[2024-06-08] MEDS ORDERED: GLUCOSE 10 TAB/TUBE PO PRN (13:15)
[2024-06-08] MEDS ORDERED: CARBOHYDRATES FOR HYPOGLYCEMIA PO PRN (13:15)
[2024-06-08] MEDS ORDERED: GLUCAGON FOR INJ 1 MG VIAL SQ PRN (13:15)
[2024-06-08] MEDS ORDERED: GLUCOSE 40% GEL 15 GM TUBE PO PRN (13:15)
[2024-06-08] MEDS: oxyCODONE HCL IR 5 MG TAB (IMMEDIATE RELEASE) PO PRN (14:08)
[2024-06-08] MEDS: INSULIN ASPART PER UNIT CHARGE SC SCH (14:09)
[2024-06-08] MEDS: TISSEEL FIBRIN SEALANT 10ML TOP ONE (14:41)
[2024-06-08 15:30] VITALS: RESP 16
[2024-06-08] MEDS: LANTUS PER UNIT CHARGE SC SCH (20:58)
[2024-06-08] MEDS: HEPARIN SOD 5,000 UNIT/0.5 ML VIAL SQ SCH (20:59)
[2024-06-08] MEDS ORDERED: NON-FORMULARY MEDICATION (Coenzyme Q10 [Co Q-10] 200 mg Capsule) PO SCH (21:00)
[2024-06-08] MEDS: DOCUSATE SODIUM 100 MG CAP PO SCH (21:03)
[2024-06-08] MEDS: ESCITALOPRAM OXALATE 10 MG TAB PO SCH (21:04)
[2024-06-08] MEDS: ROSUVASTATIN CALCIUM 10 MG TAB PO SCH (21:04)
[2024-06-09] MEDS: LEVOTHYROXINE SODIUM 112 MCG TABLET PO SCH (05:59)
[2024-06-09 06:41] LABS: Basophils # (auto) 0.02 K/uL (0.00-0.20); Basophils % (auto) 0.2 %; Hematocrit (blood only) 32.8 % (37.0-47.0); Hemoglobin 10.8 g/dl (12.0-16.0); Immature Granulocytes # (auto) 0.05 K/uL (0.01-0.20); Immature Granulocytes % (auto) 0.5 %; Lymphocytes # (auto) 1.09 K/uL (1.20-3.40); Lymphocytes % (auto) 10.5 %; Mean Corpuscular Hemoglobin 31.7 pg (25.0-34.0); Mean Corpuscular Hgb Conc 32.9 g/dL (32.0-36.0); Mean Corpuscular Volume 96.2 fL (80.0-100.0); Mean Platelet Volume 10.4 fL (9.4-12.4); Monocytes # (auto) 0.83 K/uL (0.11-0.59); Neutrophils # (auto) 8.38 K/uL (1.40-6.50); Neutrophils % (auto) 80.8 %; Platelet Count 204 K/uL (130-400); RDW Coefficient of Variation 13.6 % (11.5-14.5); Red Blood Count 3.41 M/uL (4.20-5.40); White Blood Count 10.37 K/ul (4.8-10.8)
[2024-06-09 07:02] LABS: BUN Creatinine Ratio 14.4 (10-20); Calcium 8.7 mg/dl (8.6-10.3); Creatinine Clr Calc Pharmacy 56.8 ml/min; Potassium 4.3 mmol/L (3.5-5.1)
[2024-06-09] MEDS: ASCORBIC ACID 500 MG TAB PO SCH (07:31)
[2024-06-09] MEDS: lisinopril 40 MG TAB PO SCH (07:32)
[2024-06-09] MEDS: CHOLECALCIFEROL 125 MCG (5,000 UNITS) TAB PO SCH (07:32)
--- NOTE | 2024-06-09 09:26 | Urology Progress Note ---
Date of Service June 09, 2024 Assessment & Plan (1) Left renal mass: Plan: Recovering appropriately s/p radical nephrectomy on 06/08/2024. She is going to work on having breakfast, ambulating. We will remove Palm catheter to make sure she can void. Anticipate discharge home today Admission and Anticipated Discharge Date Admission Date: June 08, 2024 Subjective Did well overnight Not having much pain Did not have much to eat due to low appetite but no nausea or vomiting Has not ambulated yet Physical Exam Physical Exam: Well-appearing, NAD Incisions intact with minimal bruising, no discharge or drainage. Palm catheter draining well Results & Data Vital Signs (Past 12 Hours) Vital Signs Temp Pulse Pulse Resp BP Pulse Ox O2 Del Method 06/09/24 06:59 36.8 C 82 16 101/58 L 93 CPAP 06/09/24 04:00 36.8 C 81 16 116/63 96 Room Air 06/08/24 23:43 36.8 C 83 16 118/66 96 CPAP PG Care Time/CCT Total # of Minutes Spent Total Time Spent with Patient: Total time spent is greater than 50% in coordination of care (as documented) at patient's floor/unit and/or counseling patient: Coding Level of Care Code None Diagnoses Left renal mass N28.89
[2024-06-09 11:05] VITALS: BP 135/72; TEMP 97.9; O2SAT 98
--- NOTE | 2024-06-09 11:31 | Discharge Summary ---
Date of Service June 09, 2024 Admission HPI Per Admitting Provider This is a 68-year-old female followed by urology for left renal mass suspected to be malignancy. She presents to the OR for robot-assisted radical left nephrectomy Principal Diagnosis Left renal mass suspicious for malignancy Discharge Exam Constitutional well developed and well nourished; no acute distress Respiratory normal respiratory effort; no respiratory distress and no labored breathing Gastrointestinal (Abdomen) Inspection/Auscultation: abdomen normal to inspection Musculoskeletal Head/Neck/Chest: normocephalic Neurologic moves all extremities and awake Psychiatric Orientation: alert and oriented x 3 Discharge Data Allergies Allergy/AdvReac Type Severity Reaction Status Date / Time shellfish derived Allergy Severe ANAPHYLAXIS Verified 06/08/24 06:31 (SEAFOOD) celecoxib [From Celebrex] Allergy Intermediate rash and Verified 06/08/24 06:31 itching nitrofurantoin Allergy Intermediate rash and Verified 06/08/24 06:31 [From Macrodantin] itching Sulfa (Sulfonamide Allergy Intermediate rash and Verified 06/08/24 06:31 Antibiotics) itching melon Allergy Mild Chills Verified 06/08/24 06:31 valdecoxib [From Bextra] Allergy Mild rash Verified 06/08/24 06:31 Procedures Performed Operation Date: 06/08/24 07:30 Actual Procedures p Robotic Radical Nephrectomy - Left(Left) - Naif Mancera MD Hospital Course (1) Left renal mass: Recovering appropriately s/p radical nephrectomy on 06/08/2024. She is going to work on having breakfast, ambulating. We will remove Palm catheter to make sure she can void. Anticipate discharge home today Patient tolerating diet, ambulating and voiding after catheter removal Patient is ready for discharge noworders placed Total Time Total Time Spent Total Time Spent (In Minutes): 25 Discharge Plan Discharge Items Patient Disposition: Home - Self-Care Reason For Visit: Calculus of Kidney, Other Specified Disorders of K Discharge Diagnosis: Renal mass concerning for malignancy Activity: Per Instructions section Lifting: No more than 10 pounds Bathing Comment: Okay to shower after discharge, no tub bath or soaking Sexual Activity: Wait until after follow-up appointment Exercise/Sports: Wait until after follow-up appointment Non-emergency contact: Urologist Call non-emergency contact if: your symptoms worsen, your pain is worsening, your pain is unusual for you, you have a fever, your temperature is above 101, your wound has increased redness, your wound has increased drainage and your wound pain has increased Follow-up/Referrals: Usman Chan [Primary Care Provider] - Diet: Regular Addtl Attending Provider Instructions: The surgery you had was: Robot-assisted radical nephrectomy Please take all medications as prescribed and keep all follow-ups as scheduled. Please call our office at [phone] with any questions, concerns or need to reschedule appointments for any reason. We are happy to assist you. Medications: Take Tylenol every 6 hours for baseline pain control If you are prescribed narcotics such as oxycodone, please take it according to the instructions on the label. Activity/Recovering at home: We recommend having someone with you for the first few days after surgery to help care for you. It is okay to shower tomorrow. Please avoid swimming, bathing or using hot tub until incisions are well healed. Avoid driving until you are not requiring pain medication any further. Walk at least a few times a day. Increase your distance, as you feel able. Stairs in your home are okay. Please avoid strenuous or sexual activity until your follow-up. No lifting anything more than 10 pounds for 8 weeks Use a stool softener (i.e. Colace) to prevent constipation, especially the first two weeks post operatively. You should not be straining/pushing to have a bowel movement. Follow-up: We will have you come to the urology office in 2-3 weeks for a wound check and pathology review Call [facility] at [phone] if you experience: Chest pain or trouble breathing (call 471 or go to the hospital). Fever of 101F or higher Symptoms of infection at incision site, including redness or swelling, warmth, or bad-smelling drainage Pain that is not controlled with medicines Pending Studies at Discharge: No Stand-Alone Forms: My [facility], Smoking Cessation Medications and DC Order Prescriptions: New oxycodone 5 mg tablet 5 mg PO DAILY Qty: 8 0RF Rx Instructions: for acute post-surgical pain Continued (DME) OneTouch Verio test strips Strip See Rx Instructions .ROUTE .MEDSUPPLY Qty: 400 3RF Rx Instructions: check blood sugar up to 4 times a day (DME) pen needle, diabetic 33 gauge x 1/4" needle See Rx Instructions .Route Qty: 100 4RF Rx Instructions: Once daily with insulin levothyroxine [Synthroid] 112 mcg tablet 112 mcg PO 5XWK Qty: 60 3RF Rx Instructions: 112 mcg 5 times a week mon-fri....@ 5am (DME) Dexcom G7 Sensor Device See Rx Instructions .Route Qty: 3 12RF Rx Instructions: Change every 10 days lisinopril 40 mg tablet 40 mg PO QAM Qty: 90 3RF (DME) lancets [OneTouch Delica Lancets] 33 gauge misc See Rx Instructions .ROUTE .MEDSUPPLY Rx Instructions: Test blood sugars 4 times a day clopidogrel 75 mg tablet 75 mg PO QAM cholecalciferol (vitamin D3) 125 mcg (5,000 unit) capsule 5,000 unit PO QAM rosuvastatin 10 mg tablet 10 mg PO HS mecobalamin (vitamin B12) 1,000 mcg tablet,chewable 1,000 mcg PO DAILY cyclobenzaprine 10 mg tablet 10 mg PO HS PRN (Reason: Muscle Spasm) metformin 500 mg tablet extended release 24 hr 1,000 mg PO BID calcium carbonate-vitamin D3 [Calcium 600 + D(3)] 600 mg-10 mcg (400 unit) Tablet 1 tab PO DAILY insulin glargine [Lantus Solostar U-100 Insulin] 100 unit/mL (3 mL) insulin pen 16 unit subcut HS turmeric 400 mg Capsule 400 mg PO QDL coenzyme Q10 [Co Q-10] 200 mg Capsule 200 mg PO HS escitalopram oxalate [Lexapro] 5 mg Tablet 5 mg PO HS zinc 100 mg Tablet 100 mg PO QAM ascorbic acid (vitamin C) [Vitamin C] 1,000 mg Tablet 1 g PO QAM Discontinued amoxicillin-pot clavulanate [Augmentin] 500-125 mg tablet 1 tab PO Q12H Qty: 14 0RF Discharge Orders: Discharge Order (Routine); Ordered 06/09/24 Ordered By: Misty Manning Admission Data Admit Date/Time: 06/08/24 11:14 Attending Provider: Naif Mancera Admit Provider: Naif Mancera Primary Care Provider: Usman Chan Other Interventions: Discharge Summary Assessment (RN) Last Done: 06/09/24 11:46 Coding Level of Care Code 40789 IN/OBS DISCH 30 MIN/LESS Diagnoses Left renal mass N28.89
[2024-06-09 11:47] VITALS: PULSE 81
== END 2024-06-09 12:30 | disposition home or self-care (01) | DRG 658 ==
LOC: ASU 06:00 → 3N 11:14